=== PATIENT | female | born 1975 | race Caucasian/White ===

== ENCOUNTER 2019-07-26 01:24 | Emergency (ER) | payer OTHER ==
[~2019-07-26] VITALS: Ht 170.2 cm; Wt 77.1 kg
[2019-07-26] MEDS ORDERED: Fluoxetine HCl20 M1 PO (01:33)
[2019-07-26] MEDS ORDERED: Zantac150 MG PO (01:33)
[2019-07-26 02:11] LABS: BASOPHILS ABSOLUTE AUTO 0.11 K/mm3 (0.00-0.23); BASOPHILS PERCENT AUTO 1 % (0-2); EOSINOPHILS ABSOLUTE AUTO 0.24 K/mm3 (0.00-0.68); EOSINOPHILS PERCENT AUTO 2 % (0-6); Hematocrit 45.2 % (33.0-51.0); Hemoglobin 16.4 g/dL (11.5-16.0); IMMATURE GRAN ABSOLUTE AUTO 0.15 K/mm3 (0.00-0.10); IMMATURE GRAN PERCENT AUTO 1 % (0-1); LYMPHOCYTES PERCENT AUTO 17 % (21-46); MONOCYTES ABSOLUTE AUTO 1.34 K/mm3 (0.16-1.47); MONOCYTES PERCENT AUTO 9 % (4-13); Mean Corpuscular HGB Conc 36.3 g/dL (31.5-36.5); Mean Corpuscular Volume 110 fL (80-100); NEUTROPHILS PERCENT AUTO 71 % (41-73); NRBC ABSOLUTE 0.02 K/mm3 (0.00-0.02); NRBC Auto 0.1 /100 WBC (0.0-0.2); Platelet Count 387 K/mm3 (150-400); RDW Coefficient Variation 13.6 % (11.7-14.2); RDW Standard Deviation 55.8 fL (35.1-46.3); White Blood Cell Count 15.14 K/mm3 (4.00-11.30)
[2019-07-26 02:27] LABS: Alanine Aminotransfer (ALT/SGP 76 U/L (12-78); Albumin/Globulin Ratio 0.9 (0.8-1.8); Alk Phos 113 U/L (50-136); Anion Gap 14 mmol/L (6-16); Aspartate Aminotrans (AST/SGOT 73 U/L (12-37); Bilirubin, Total 0.5 mg/dL (0.1-1.0); Blood Urea Nitrogen 6 mg/dL (8-24); Bun/Creatinine Ratio 8.3 (12.0-20.0); CO2, Blood 26 mmol/L (21-32); Calcium, Blood 9.8 mg/dL (8.5-10.1); Chloride, Blood 96 mmol/L (98-108); Creatinine, Blood 0.72 mg/dL (0.40-1.00); Globulin, Blood 4.7 g/dL (2.2-4.0); Glomerular Filtration Rate >60 (60-); Glucose, Blood 116 mg/dL (70-99); Magnesium, Blood 1.7 mg/dL (1.6-2.4); Potassium, Blood 2.7 mmol/L (3.5-5.5); Sodium, Blood 136 mmol/L (136-145); Total Protein, Blood 8.7 g/dL (6.4-8.2); Troponin I <0.015 ng/mL (0.000-0.040)
[2019-07-26 04:14] LABS: Source, Urine Clean Catch
[2019-07-26 04:23] LABS: Appearance, Urine Clear (Clear); Bilirubin, Urine Neg (Neg); Blood, Urine Neg (Neg); Color, Urine Yellow (P-Yellow); Glucose Qualitative, Urine Neg (Neg); Ketones, Urine 1+ (Neg); Leukocyte Esterase, Urine Neg (Neg); Nitrite, Urine Neg (Neg); Protein, Urine 1+ (Neg); Urobilinogen, Urine 1+ (Normal)
[2019-07-26] MEDS ORDERED: K-Dur20 MEQ PO (04:41)
== END 2019-07-26 04:56 | disposition home or self-care (01) ==
LOC: ER 01:24
PROVIDERS: Emergency Medicine
DX: E87.5 Hyperkalemia (principal); E83.42 Hypomagnesemia; E86.0 Dehydration; F10.129 Alcohol abuse with intoxication, unspecified; Y90.6 Blood alcohol level of 120-199 mg/100 ml; F17.210 Nicotine dependence, cigarettes, uncomplicated; Z79.899 Other long term (current) drug therapy
CPT/HCPCS: 36415; 71046; 80053; 83735; 84145; 84484; 84703; 85025; 93005; 93010; 96361; 96365; 96367; 96375; 99284-25; A9270-GY; G0480; J0780; J1200; J1885; J3475; J3480; J7030

== ENCOUNTER 2020-04-19 12:55 | Emergency (ER) | payer OTHER ==
[~2020-04-19] VITALS: Ht 170.2 cm; Wt 77.1 kg
[~2020-04-19 12:55] MED LIST: Fluoxetine HCl20 M1 PO; K-Dur20 MEQ PO; Zantac150 MG PO
[2020-04-19 13:31] LABS: BASOPHILS PERCENT AUTO 1 % (0-2); EOSINOPHILS PERCENT AUTO 1 % (0-6); Hematocrit 46.9 % (33.0-51.0); Hemoglobin 16.1 g/dL (11.5-16.0); IMMATURE GRAN ABSOLUTE AUTO 0.11 K/mm3 (0.00-0.10); IMMATURE GRAN PERCENT AUTO 1 % (0-1); LYMPHOCYTES ABSOLUTE AUTO 2.25 K/mm3 (0.84-5.20); LYMPHOCYTES PERCENT AUTO 15 % (21-46); MONOCYTES ABSOLUTE AUTO 1.18 K/mm3 (0.16-1.47); MONOCYTES PERCENT AUTO 8 % (4-13); Mean Corpuscular HGB 36.7 pg (26.0-34.0); Mean Corpuscular HGB Conc 34.3 g/dL (31.5-36.5); Mean Corpuscular Volume 107 fL (80-100); Mean Platelet Volume 10.2 fL (9.1-12.4); NEUTROPHILS ABSOLUTE AUTO 11.33 K/mm3 (1.96-9.15); NEUTROPHILS PERCENT AUTO 75 % (41-73); Platelet Count 361 K/mm3 (150-400); RDW Standard Deviation 54.9 fL (35.1-46.3); Red Blood Cell Count 4.39 M/mm3 (3.80-5.20); White Blood Cell Count 15.17 K/mm3 (4.00-11.30)
[2020-04-19 13:54] LABS: Alanine Aminotransfer (ALT/SGP 65 U/L (12-78); Albumin, Blood 3.5 g/dL (3.4-5.0); Albumin/Globulin Ratio 0.7 (0.8-1.8); Alk Phos 153 U/L (50-136); Anion Gap 9 mmol/L (6-16); Aspartate Aminotrans (AST/SGOT 130 U/L (12-37); Bilirubin, Total 1.2 mg/dL (0.1-1.0); Blood Urea Nitrogen 6 mg/dL (8-24); Bun/Creatinine Ratio 9.2 (12.0-20.0); CO2, Blood 24 mmol/L (21-32); Calcium, Blood 8.7 mg/dL (8.5-10.1); Chloride, Blood 102 mmol/L (98-108); Creatinine, Blood 0.66 mg/dL (0.40-1.00); Globulin, Blood 5.3 g/dL (2.2-4.0); Glomerular Filtration Rate >60 (60-); Glucose, Blood 162 mg/dL (70-99); Potassium, Blood 3.2 mmol/L (3.5-5.5); Sodium, Blood 135 mmol/L (136-145); Total Protein, Blood 8.8 g/dL (6.4-8.2)
[2020-04-19 15:40] LABS: Source, Urine Clean Catch
[2020-04-19 15:48] LABS: Blood, Urine 1+ (Neg); Glucose Qualitative, Urine 1+ (Neg); Ketones, Urine 2+ (Neg); Leukocyte Esterase, Urine 1+ (Neg); Nitrite, Urine Neg (Neg); Protein, Urine 3+ (Neg); Specific Gravity, Urine 1.025 (1.003-1.022); Urobilinogen, Urine 2+ (Normal)
[2020-04-19 15:49] LABS: Appearance, Urine Turbid (Clear); Bilirubin, Urine 2+ (Neg); Color, Urine Orange (P-Yellow)
[2020-04-19 15:50] LABS: Amorphous Heavy (0-Heavy); Bacteria Mod /hpf; Squamous Epithelial Cells Few /hpf (Few)
[2020-04-19 16:27] LABS: Magnesium, Blood 1.2 mg/dL (1.6-2.4); Troponin I <0.015 ng/mL (0.000-0.040)
[2020-04-19] MEDS ORDERED: ONDA4ODT MM (17:17)
[2020-04-19] MEDS ORDERED: Percocet 5-3251 EACH PO (17:17)
== END 2020-04-19 18:11 | disposition home or self-care (01) ==
LOC: ER 12:55
PROVIDERS: Physician Assistant
DX: K85.90 Acute pancreatitis without necrosis or infection, unspecified (principal); F41.9 Anxiety disorder, unspecified; Z79.899 Other long term (current) drug therapy; F17.210 Nicotine dependence, cigarettes, uncomplicated
CPT/HCPCS: 36415; 74177; 76705; 80053; 81001; 81025; 83690; 83735; 84484; 85025; 87077; 87086; 87186; 96361-59; 96374-59; 96375-59; 99284-25; J1170; J1885; J2405; J7030; Q9967

== ENCOUNTER 2020-10-12 22:51 | Emergency (ER) | payer OTHER ==
[~2020-10-12] VITALS: Ht 165.1 cm; Wt 72.6 kg
[~2020-10-12 22:51] MED LIST changes: +ONDA4ODT MM; +Percocet 5-3251 EACH PO
== END 2020-10-13 01:51 | disposition home or self-care (01) ==
LOC: ER 22:51
DX: S81.811A Laceration without foreign body, right lower leg, initial encounter (principal); F17.210 Nicotine dependence, cigarettes, uncomplicated; Z79.899 Other long term (current) drug therapy; Z23 Encounter for immunization; W26.0XXA Contact with knife, initial encounter
CPT/HCPCS: 12035; 73590; 90471; 90714; 99284-25; A9270-GY

== ENCOUNTER 2020-10-20 13:54 | Emergency (ER) | payer OTHER ==
[~2020-10-20] VITALS: Ht 170.2 cm; Wt 77.1 kg
[2020-10-20 15:08] LABS: BASOPHILS ABSOLUTE AUTO 0.08 K/mm3 (0.00-0.23); BASOPHILS PERCENT AUTO 1 % (0-2); EOSINOPHILS ABSOLUTE AUTO 0.51 K/mm3 (0.00-0.68); EOSINOPHILS PERCENT AUTO 4 % (0-6); Hematocrit 39.4 % (33.0-51.0); Hemoglobin 13.2 g/dL (11.5-16.0); IMMATURE GRAN PERCENT AUTO 1 % (0-1); LYMPHOCYTES ABSOLUTE AUTO 1.17 K/mm3 (0.84-5.20); LYMPHOCYTES PERCENT AUTO 10 % (21-46); MONOCYTES ABSOLUTE AUTO 1.12 K/mm3 (0.16-1.47); MONOCYTES PERCENT AUTO 9 % (4-13); Mean Corpuscular HGB 38.5 pg (26.0-34.0); Mean Corpuscular HGB Conc 33.5 g/dL (31.5-36.5); Mean Corpuscular Volume 115 fL (80-100); NEUTROPHILS ABSOLUTE AUTO 8.89 K/mm3 (1.96-9.15); NEUTROPHILS PERCENT AUTO 75 % (41-73); Platelet Count 465 K/mm3 (150-400); RDW Coefficient Variation 14.2 % (11.7-14.2); RDW Standard Deviation 60.5 fL (35.1-46.3); Red Blood Cell Count 3.43 M/mm3 (3.80-5.20); White Blood Cell Count 11.87 K/mm3 (4.00-11.30)
[2020-10-20 15:27] LABS: Alanine Aminotransfer (ALT/SGP 45 U/L (12-78); Albumin, Blood 2.9 g/dL (3.4-5.0); Albumin/Globulin Ratio 0.6 (0.8-1.8); Alk Phos 151 U/L (50-136); Anion Gap 7 mmol/L (6-16); Aspartate Aminotrans (AST/SGOT 78 U/L (12-37); Bilirubin, Total 0.5 mg/dL (0.1-1.0); Blood Urea Nitrogen 8 mg/dL (8-24); Bun/Creatinine Ratio 14.2 (12.0-20.0); CO2, Blood 26 mmol/L (21-32); Calcium, Blood 8.6 mg/dL (8.5-10.1); Chloride, Blood 102 mmol/L (98-108); Creatinine, Blood 0.56 mg/dL (0.40-1.00); Globulin, Blood 4.6 g/dL (2.2-4.0); Glomerular Filtration Rate >60 (60-); Glucose, Blood 110 mg/dL (70-99); Potassium, Blood 3.1 mmol/L (3.5-5.5); Sodium, Blood 135 mmol/L (136-145); Total Protein, Blood 7.5 g/dL (6.4-8.2)
[2020-10-20] MEDS ORDERED: Bactrim Ds Tab1 EACH PO (17:13)
[2020-10-20] MEDS ORDERED: CEPH500 PO (17:13)
[2020-10-20] MEDS ORDERED: Roxicodone5 MG PO (17:13)
== END 2020-10-20 18:50 | disposition home or self-care (01) ==
LOC: ER 13:54
PROVIDERS: Physician Assistant
DX: L03.115 Cellulitis of right lower limb (principal); S81.811D Laceration without foreign body, right lower leg, subsequent encounter; F41.9 Anxiety disorder, unspecified; F17.200 Nicotine dependence, unspecified, uncomplicated; Z79.899 Other long term (current) drug therapy; W45.8XXD Other foreign body or object entering through skin, subsequent encounter
CPT/HCPCS: 36415; 73701; 80053; 83605; 85025; 96365-59; 96375-59; 99283-25; A9270-GY; J0690; J3010; Q9967

== ENCOUNTER 2020-10-27 11:35 | Day surgery (SDC) | payer OTHER ==
[~2020-10-27 11:35] MED LIST changes: +Bactrim Ds Tab1 EACH PO; +CEPH500 PO; +Roxicodone5 MG PO
== END 2020-10-27 16:00 | disposition home or self-care (01) ==
LOC: ATC 11:35
DX: L03.115 Cellulitis of right lower limb (principal); F17.200 Nicotine dependence, unspecified, uncomplicated
CPT/HCPCS: 96365; J0696

== ENCOUNTER 2020-10-28 00:19 | Day surgery (SDC) | payer OTHER | END 2020-10-28 10:12 | disposition home or self-care (01) | LOC: ATC 00:19 | DX: L03.115 Cellulitis of right lower limb (principal); F41.9 Anxiety disorder, unspecified; F17.200 Nicotine dependence, unspecified, uncomplicated; Z79.2 Long term (current) use of antibiotics; Z79.899 Other long term (current) drug therapy | CPT/HCPCS: 96365; J0696 ==

== ENCOUNTER 2020-10-30 00:35 | Day surgery (SDC) | payer OTHER | END 2020-10-30 09:40 | disposition home or self-care (01) | LOC: ATC 00:35 | DX: L03.115 Cellulitis of right lower limb (principal); F17.200 Nicotine dependence, unspecified, uncomplicated | CPT/HCPCS: J0696 ==

== ENCOUNTER 2020-10-30 00:36 | Day surgery (SDC) | payer OTHER | END 2020-10-30 23:35 | disposition home or self-care (01) | LOC: WOUND 00:36 | DX: S81.801A Unspecified open wound, right lower leg, initial encounter (principal); I96 Gangrene, not elsewhere classified; F17.200 Nicotine dependence, unspecified, uncomplicated; K21.9 Gastro-esophageal reflux disease without esophagitis; F41.8 Other specified anxiety disorders; Z79.899 Other long term (current) drug therapy; W22.8XXA Striking against or struck by other objects, initial encounter | CPT/HCPCS: G0463 ==

== ENCOUNTER 2020-10-31 00:48 | Day surgery (SDC) | payer OTHER ==
--- NOTE | 2020-10-31 09:44 | NUR ---
PER PT IV TO LEFT FOREARM PLACED 10/30/20. WNL TODAY. INFUSING WITHOUT DIFFICULTY
== END 2020-10-31 09:55 | disposition home or self-care (01) ==
LOC: ATC 00:48
DX: L03.115 Cellulitis of right lower limb (principal); F17.200 Nicotine dependence, unspecified, uncomplicated
CPT/HCPCS: J0696

== ENCOUNTER 2020-11-01 00:21 | Day surgery (SDC) | payer OTHER ==
--- NOTE | 2020-11-01 09:46 | NUR ---
IV SITE LEFT FORARM, 22G.
--- NOTE | 2020-11-01 10:09 | NUR ---
IV SITE TO LEFT FORARM WRAPPED WITH 2X2'S AND WRAPPED WITH COBAN. WILL RETURN TOMORROW FOR INFUSION.
== END 2020-11-01 10:07 | disposition home or self-care (01) ==
LOC: ATC 00:21
DX: L03.115 Cellulitis of right lower limb (principal); F17.200 Nicotine dependence, unspecified, uncomplicated
CPT/HCPCS: J0696

== ENCOUNTER 2020-11-02 00:02 | Day surgery (SDC) | payer OTHER | END 2020-11-02 23:44 | disposition home or self-care (01) | LOC: ATC 00:02 | DX: L03.115 Cellulitis of right lower limb (principal); F17.200 Nicotine dependence, unspecified, uncomplicated; Z79.2 Long term (current) use of antibiotics; Z79.899 Other long term (current) drug therapy | CPT/HCPCS: J0696 ==

== ENCOUNTER 2020-11-03 00:07 | Day surgery (SDC) | payer OTHER | END 2020-11-03 09:48 | disposition home or self-care (01) | LOC: ATC 00:07 | DX: L03.115 Cellulitis of right lower limb (principal); F41.9 Anxiety disorder, unspecified; F17.200 Nicotine dependence, unspecified, uncomplicated; Z79.2 Long term (current) use of antibiotics; Z79.899 Other long term (current) drug therapy | CPT/HCPCS: 96365; J0696 ==

== ENCOUNTER 2020-11-04 05:40 | Day surgery (SDC) | payer OTHER | END 2020-11-04 09:30 | disposition home or self-care (01) | LOC: ATC 05:40 | DX: L03.115 Cellulitis of right lower limb (principal); F41.9 Anxiety disorder, unspecified; F17.200 Nicotine dependence, unspecified, uncomplicated; Z79.2 Long term (current) use of antibiotics; Z79.899 Other long term (current) drug therapy | CPT/HCPCS: 96365; J0696 ==

== ENCOUNTER 2020-11-04 06:43 | Day surgery (SDC) | payer OTHER | END 2020-11-04 22:48 | disposition home or self-care (01) | LOC: WOUND 06:43 | DX: S81.801A Unspecified open wound, right lower leg, initial encounter (principal); I96 Gangrene, not elsewhere classified; F41.9 Anxiety disorder, unspecified; Z79.2 Long term (current) use of antibiotics; Z79.899 Other long term (current) drug therapy; W22.8XXA Striking against or struck by other objects, initial encounter ==

== ENCOUNTER 2020-11-05 00:05 | Day surgery (SDC) | payer OTHER | END 2020-11-05 09:40 | disposition home or self-care (01) | LOC: ATC 00:05 | DX: L03.115 Cellulitis of right lower limb (principal); F17.200 Nicotine dependence, unspecified, uncomplicated | CPT/HCPCS: 96365; J0696 ==

== ENCOUNTER 2020-11-06 09:23 | Day surgery (SDC) | payer OTHER | END 2020-11-06 10:00 | disposition home or self-care (01) | LOC: ATC 09:23 | DX: L03.115 Cellulitis of right lower limb (principal); F17.200 Nicotine dependence, unspecified, uncomplicated | CPT/HCPCS: J0696 ==

== ENCOUNTER 2020-11-07 00:29 | Day surgery (SDC) | payer OTHER | END 2020-11-07 22:50 | LOC: ATC 00:29 | DX: L03.115 Cellulitis of right lower limb (principal); F17.200 Nicotine dependence, unspecified, uncomplicated | CPT/HCPCS: J0696 ==

== ENCOUNTER 2020-11-08 01:24 | Day surgery (SDC) | payer OTHER | END 2020-11-08 22:50 | disposition home or self-care (01) | LOC: ATC 01:24 | DX: L03.115 Cellulitis of right lower limb (principal); F17.200 Nicotine dependence, unspecified, uncomplicated; F41.9 Anxiety disorder, unspecified; Z79.2 Long term (current) use of antibiotics; Z79.899 Other long term (current) drug therapy | CPT/HCPCS: J0696 ==

== ENCOUNTER 2020-11-11 01:16 | Day surgery (SDC) | payer OTHER | END 2020-11-11 23:02 | disposition home or self-care (01) | LOC: WOUND 01:16 | DX: S81.801A Unspecified open wound, right lower leg, initial encounter (principal); I96 Gangrene, not elsewhere classified; F41.8 Other specified anxiety disorders; Z79.899 Other long term (current) drug therapy; W22.8XXA Striking against or struck by other objects, initial encounter ==

== ENCOUNTER 2020-11-18 00:27 | Day surgery (SDC) | payer OTHER | END 2020-11-18 22:40 | disposition home or self-care (01) | LOC: WOUND 00:27 | DX: T81.33XD Disruption of traumatic injury wound repair, subsequent encounter (principal); Y83.8 Other surgical procedures as the cause of abnormal reaction of the patient, or of later complication, without mention of misadventure at the time of the procedure; F17.200 Nicotine dependence, unspecified, uncomplicated ==

== ENCOUNTER 2020-11-25 00:21 | Day surgery (SDC) | payer OTHER ==
[~2020-11-25 00:21] MED LIST changes: -Fluoxetine HCl20 M1 PO
== END 2020-11-25 22:47 | disposition home or self-care (01) ==
LOC: WOUND 00:21
DX: T81.33XD Disruption of traumatic injury wound repair, subsequent encounter (principal); Y83.8 Other surgical procedures as the cause of abnormal reaction of the patient, or of later complication, without mention of misadventure at the time of the procedure; Z87.891 Personal history of nicotine dependence
CPT/HCPCS: A9270

== ENCOUNTER 2020-12-23 06:35 | Observation (INO) | payer OTHER ==
[~2020-12-23] VITALS: Ht 170.2 cm; Wt 75.4 kg
[2020-12-23 07:03] LABS: BASOPHILS ABSOLUTE AUTO 0.05 K/mm3 (0.00-0.23); BASOPHILS PERCENT AUTO 1 % (0-2); EOSINOPHILS ABSOLUTE AUTO 0.13 K/mm3 (0.00-0.68); EOSINOPHILS PERCENT AUTO 2 % (0-6); Hematocrit 33.5 % (33.0-51.0); Hemoglobin 11.7 g/dL (11.5-16.0); IMMATURE GRAN ABSOLUTE AUTO 0.05 K/mm3 (0.00-0.10); IMMATURE GRAN PERCENT AUTO 1 % (0-1); LYMPHOCYTES ABSOLUTE AUTO 1.43 K/mm3 (0.84-5.20); LYMPHOCYTES PERCENT AUTO 19 % (21-46); MONOCYTES ABSOLUTE AUTO 0.65 K/mm3 (0.16-1.47); MONOCYTES PERCENT AUTO 9 % (4-13); Mean Corpuscular HGB Conc 34.9 g/dL (31.5-36.5); Mean Corpuscular Volume 112 fL (80-100); Mean Platelet Volume 10.6 fL (9.1-12.4); NEUTROPHILS PERCENT AUTO 69 % (41-73); Platelet Count 259 K/mm3 (150-400); RDW Coefficient Variation 16.1 % (11.7-14.2); RDW Standard Deviation 65.9 fL (35.1-46.3); White Blood Cell Count 7.51 K/mm3 (4.00-11.30)
[2020-12-23 07:18] LABS: CPK Creatine Kinase 50 U/L (26-193); Ethanol (Alcohol), Blood, Med <3 mg/dL
[2020-12-23 07:22] LABS: Alanine Aminotransfer (ALT/SGP 51 U/L (12-78); Albumin, Blood 3.1 g/dL (3.4-5.0); Albumin/Globulin Ratio 0.8 (0.8-1.8); Alk Phos 101 U/L (50-136); Anion Gap 9 mmol/L (6-16); Aspartate Aminotrans (AST/SGOT 96 U/L (12-37); Bilirubin, Total 0.8 mg/dL (0.1-1.0); Blood Urea Nitrogen 6 mg/dL (8-24); CO2, Blood 27 mmol/L (21-32); Calcium, Blood 8.7 mg/dL (8.5-10.1); Chloride, Blood 103 mmol/L (98-108); Glomerular Filtration Rate >60 (60-); Glucose, Blood 113 mg/dL (70-99); Potassium, Blood 2.3 mmol/L (3.5-5.5); Sodium, Blood 139 mmol/L (136-145); Total Protein, Blood 7.1 g/dL (6.4-8.2)
[2020-12-23 09:09] LABS: Source, Urine Clean Catch
[2020-12-23 09:16] LABS: Bilirubin, Urine Neg (Neg); Blood, Urine 1+ (Neg); Glucose Qualitative, Urine Neg (Neg); Ketones, Urine 2+ (Neg); Leukocyte Esterase, Urine 1+ (Neg); Nitrite, Urine Neg (Neg); Protein, Urine 3+ (Neg); Urobilinogen, Urine 1+ (Normal)
[2020-12-23 09:27] LABS: U Amphetamine Screen Not Detected; U Barbituate Screen Not Detected; U Benzodiazapine Screen DETECTED; U Buprenorphine Screen Not Detected; U Cannabinoids Screen Not Detected; U Cocaine Screen Not Detected; U Methadone Screen Not Detected; U Methamphetamine Screen Not Detected; U Opiates Screen Not Detected; U Oxycodone Screen Not Detected; U Phencyclidine Screen Not Detected; U Propoxyphene Screen Not Detected
[2020-12-23 09:45] LABS: Appearance, Urine Hazy (Clear); Color, Urine Yellow (P-Yellow)
[2020-12-23 09:54] LABS: Bacteria Few /hpf; Mucus Light (0-Heavy); Squamous Epithelial Cells Few /hpf (Few)
[2020-12-23] MEDS ORDERED: Fluoxetine HCl20 M1 PO (12:34)
[2020-12-23] MEDS ORDERED: OMEP20ER PO (12:53)
[2020-12-23] MEDS ORDERED: TRAZ100 PO (13:31)
--- NOTE | 2020-12-23 15:41 | NUR ---
PT ARRIVED IN THE UNIT VIA STRETCHER FROM [facility], PT WAS ABLE TO AMBULATE 1PA TO TRANSFER FROM STRETCHER TO HOSP BED. PT IS HERE FOR ACUTE HYPOKALEMIA REPORT RECEIVED FROM JARVIS ESCALANTE. ALERT AND ORIENTED X3, COOPERATIVE AND PLEASANT. PT DOESN'T FULL REMEMBER WHAT HAPPENED AFTER SHE FELL AT HOME, BUT REMEMBER THAT SHE HIT RIGHT SIDE OF HER HEAD, HEAD CT SHOWS NO SIGNIFICANT ABNORMALITY. PT DENIES ANY TYPE OF PAIN, PT REPORTS BEING WEAK WITH NAUSEA, VOMITING AND POOR APPETITE 9 DAYS AFTER SHE DECIDED TO QUIT DRINKING ALCOHOL, PT USED TO DRINK 6-10 SHOTS OF WHISKEY AND 2 BOTTLES OF BEERS A DAY. PT ALSO REPORTED SHE STOPPED TAKING HER PROZAC BECAUSE SHE WAS THROWING UP OFTEN. NO TREMORS NOTED, SEIZURE PADS APPLIED ON THE SIDE RAILS, BED IN LOWEST POSITION, ON SEIZURE PRECAUTIONS, PT CURRENTLY RUNNING ON 4TH BAG OF IV POTASSIUM FROM THE ER AND NS AT 75MLS/HR. VITALS HRR SR 70'S, BP SYSTOLIC 104, SATS ABOVE 95% ON RA, AFEBRILE. PT NOW RESTING IN BED, NO OTHER COMPLAINS AT THIS TIME, WILL MONITOR UNTIL THE END OF SHIFT.
--- NOTE | 2020-12-23 19:38 | NUR ---
PT REFUSED TO RELEASE ANY INFORMATION TO ANY FAMILY MEMBER EXCEPT GIRMA BARBA DUE TO FAMILY ISSUES, PT STATED SHE CAN CONTACT HER PARENTS IF SHE WANTS TO, NO HOSPITAL STAFF TO TALK TO PT'S PARENTS ABOUT HER CONDITION DURING HOSPITAL STAY PER PT'S REQUESTS.
[2020-12-24 04:24] LABS: Alanine Aminotransfer (ALT/SGP 45 U/L (12-78); Albumin, Blood 2.4 g/dL (3.4-5.0); Albumin/Globulin Ratio 0.7 (0.8-1.8); Alk Phos 87 U/L (50-136); Anion Gap 6 mmol/L (6-16); Aspartate Aminotrans (AST/SGOT 64 U/L (12-37); Bilirubin, Total 0.9 mg/dL (0.1-1.0); Blood Urea Nitrogen 5 mg/dL (8-24); CO2, Blood 27 mmol/L (21-32); Calcium, Blood 8.2 mg/dL (8.5-10.1); Chloride, Blood 110 mmol/L (98-108); Creatinine, Blood 0.63 mg/dL (0.40-1.00); Globulin, Blood 3.6 g/dL (2.2-4.0); Glomerular Filtration Rate >60 (60-); Glucose, Blood 86 mg/dL (70-99); Magnesium, Blood 1.8 mg/dL (1.6-2.4); Sodium, Blood 143 mmol/L (136-145)
--- NOTE | 2020-12-24 05:54 | NUR ---
LOW POTASSIUM LEVEL DR ZULUAGA NOTIFIED OF PATIENT'S LOW POTASSIUM LEVEL THIS MORNING. ORDER RECIEVED.
--- NOTE | 2020-12-24 06:34 | NUR ---
SHIFT SUMMARY PATIENT VERY PLEASENT AND COOPERATIVE THROUGHOUT THE NIGHT. PATIENT APPEARED TO BE AWAKE MOST OF THE NIGHT, NAPPING OCCATIONALLY. IV FLUIDS RUNNING PER ORDERS. VITAL SIGNS CHARTED. PATIENT STATED SHE HAD SOME SLIGHT NAUSEA THIS MORNING BUT DENIED THE NEED FOR ANY NAUSEA MEDICATION. KCL RUNNING PER ORDERS. PATIENT CURRENTLY RESTING IN BED WATCHING TV. WILL CONTINUE CURRENT PLAN OF CARE.
[2020-12-24] MEDS ORDERED: MULVITA PO (12:15)
[2020-12-24] MEDS ORDERED: B-1100 M1 PO (12:16)
[2020-12-24 13:59] LABS: Anion Gap 5 mmol/L (6-16); Blood Urea Nitrogen 5 mg/dL (8-24); Bun/Creatinine Ratio 8.3 (12.0-20.0); CO2, Blood 26 mmol/L (21-32); Calcium, Blood 8.2 mg/dL (8.5-10.1); Chloride, Blood 114 mmol/L (98-108); Glomerular Filtration Rate >60 (60-); Glucose, Blood 85 mg/dL (70-99); Potassium, Blood 3.8 mmol/L (3.5-5.5); Sodium, Blood 145 mmol/L (136-145)
--- NOTE | 2020-12-24 14:17 | NUR ---
Patient is lying in bed and alert. Patient tells me about the events that led to her hospitalization, about her struggle with alcohol and about her family unit complications. She explains about the stress she is under and the degree of worry she has about her dad who is battling cancer. I normalize her experience, encourage self-care, explore sources of meaning and value and provide therapeutic listening, pastoral senior counsel commercial, inspirational reading material and prayer. Patient responds well and states that she feels encouraged from the spiritual care visit and that she feels less overwhelmed. I will continue to remain available to patient and family.
[2020-12-24] MEDS ORDERED: POTCHL20ER PO (15:15)
--- NOTE | 2020-12-24 16:01 | NUR ---
NO ACUTE EVENTS THIS SHIFT, VSS. PATIENT ALERT AND ORIENTED, ABLE TO AMBULATE IN ROOM WITH SBA FOR LINE MANAGEMENT. DISCHARGE INFO PROVIDED REGARDING FOLLOW UP PLANS FOR LAB DRAW TO CHECK K+ LEVEL ON MONDAY, TO FOLLOW UP WITH PRIMARY CARE PROVIDER AT NEXT AVAILABLE APPOINTMENT, AND MEDICATION INFORMATION. THIS RN COMMUNICATED IMPORTANCE OF PICKING UP AND CONTINUING TO TAKE PO POTASSIUM PRESCRIPTION AND TO RECHECK POTASSIUM LEVELS WITH LAB DRAW ON MONDAY. PATIENT VERBALIZED UNDERSTANDING, NO SIGNS OF ACUTE DISTRESS AT THIS TIME.
== END 2020-12-24 16:08 | disposition home or self-care (01) ==
LOC: ER 06:35 → ERHOLD 06:36 → PCU 06:36
PROVIDERS: Emergency Medicine; Family Medicine; Nurse Practitioner Acute Care; ADMIT Internal Medicine
DX: E87.6 Hypokalemia (principal); K21.9 Gastro-esophageal reflux disease without esophagitis; R56.9 Unspecified convulsions; E78.5 Hyperlipidemia, unspecified; F10.20 Alcohol dependence, uncomplicated; R94.31 Abnormal electrocardiogram [ECG] [EKG]; T43.225A Adverse effect of selective serotonin reuptake inhibitors, initial encounter; T43.215A Adverse effect of selective serotonin and norepinephrine reuptake inhibitors, initial encounter; F32.9 Major depressive disorder, single episode, unspecified; F41.9 Anxiety disorder, unspecified
CPT/HCPCS: 36415; 70450; 80048; 80053; 81001; 82550; 82947; 83735; 84132; 84443; 85025; 87086; 93005; 93010; 96365; 96366; 96368; 96376; 97116; 97162; 99285-25; A9270; G0008; G0378; G0480; J1650; J3475; J3480; J7030; Q2038

== ENCOUNTER 2022-01-30 15:17 | Observation (INO) | payer OTHER ==
[~2022-01-30] VITALS: Ht 170.2 cm; Wt 72.8 kg
[~2022-01-30 15:17] MED LIST changes: +B-1100 M1 PO; +Fluoxetine HCl20 M1 PO; +MULVITA PO; +OMEP20ER PO; +POTCHL20ER PO; +TRAZ100 PO
[2022-01-30 15:49] LABS: BASOPHILS ABSOLUTE AUTO 0.07 K/mm3 (0.00-0.23); BASOPHILS PERCENT AUTO 1 % (0-2); EOSINOPHILS ABSOLUTE AUTO 0.08 K/mm3 (0.00-0.68); EOSINOPHILS PERCENT AUTO 1 % (0-6); Hematocrit 42.3 % (33.0-51.0); Hemoglobin 14.3 g/dL (11.5-16.0); IMMATURE GRAN PERCENT AUTO 1 % (0-1); LYMPHOCYTES ABSOLUTE AUTO 1.35 K/mm3 (0.84-5.20); LYMPHOCYTES PERCENT AUTO 15 % (21-46); MONOCYTES ABSOLUTE AUTO 0.79 K/mm3 (0.16-1.47); MONOCYTES PERCENT AUTO 9 % (4-13); Mean Corpuscular HGB 37.5 pg (26.0-34.0); Mean Corpuscular HGB Conc 33.8 g/dL (31.5-36.5); Mean Corpuscular Volume 111 fL (80-100); Mean Platelet Volume 11.6 fL (9.1-12.4); NEUTROPHILS ABSOLUTE AUTO 6.53 K/mm3 (1.96-9.15); NEUTROPHILS PERCENT AUTO 73 % (41-73); Platelet Count 249 K/mm3 (150-400); RDW Standard Deviation 53.9 fL (35.1-46.3); Red Blood Cell Count 3.81 M/mm3 (3.80-5.20); White Blood Cell Count 8.92 K/mm3 (4.00-11.30)
[2022-01-30] MEDS ORDERED: Atarax10 MG PO (16:03)
[2022-01-30 16:15] LABS: Alanine Aminotransfer (ALT/SGP 90 U/L (12-78); Albumin, Blood 2.8 g/dL (3.4-5.0); Albumin/Globulin Ratio 0.5 (0.8-1.8); Alk Phos 186 U/L (50-136); Anion Gap 14 mmol/L (6-16); Aspartate Aminotrans (AST/SGOT 192 U/L (12-37); Bilirubin, Total 1.7 mg/dL (0.1-1.0); Blood Urea Nitrogen 5 mg/dL (8-24); Bun/Creatinine Ratio 6.3 (12.0-20.0); CO2, Blood 21 mmol/L (21-32); Calcium, Blood 8.7 mg/dL (8.5-10.1); Chloride, Blood 104 mmol/L (98-108); Creatinine, Blood 0.79 mg/dL (0.40-1.00); Globulin, Blood 5.3 g/dL (2.2-4.0); Glomerular Filtration Rate >60 (60-); Glucose, Blood 210 mg/dL (70-99); Potassium, Blood 2.3 mmol/L (3.5-5.5); Sodium, Blood 139 mmol/L (136-145); Total Protein, Blood 8.1 g/dL (6.4-8.2)
[2022-01-30] MEDS ORDERED: REXULTI2 MG PO (20:53)
[2022-01-31 02:52] LABS: Campylobacter Sp Not Detected (NOT DETECT); Enteroaggregative E. coli-EAEC Not Detected (NOT DETECT); Enteropathogenic E. coli-EPEC Not Detected (NOT DETECT); Enterotoxigenic E. coli-ETEC Not Detected (NOT DETECT); Plesiomonas Shigelloides Not Detected (NOT DETECT); Salmonella Sp Not Detected (NOT DETECT); Shiga Toxin-prod E. coli-STEC Not Detected (NOT DETECT); Vibrio Cholerae Not Detected (NOT DETECT); Vibrio Sp Not Detected (NOT DETECT); Yersinia Enterocolitica Not Detected (NOT DETECT)
[2022-01-31 02:53] LABS: Adenovirus F 40/41 Not Detected (NOT DETECT); Astrovirus Not Detected (NOT DETECT); Cryptosporidium Not Detected (NOT DETECT); Cyclospora Cayetanensis Not Detected (NOT DETECT); E. Coli O157 Not Detected (NOT DETECT); Entamoeba Histolytica Not Detected (NOT DETECT); Giardia Lamblia Not Detected (NOT DETECT); Norovirus GI/GII Not Detected (NOT DETECT); Rotavirus A Not Detected (NOT DETECT); Sapovirus Not Detected (NOT DETECT); Shigella/Enteroin E. coli-EIEC Not Detected (NOT DETECT)
[2022-01-31 04:54] LABS: Anion Gap 6 mmol/L (6-16); Blood Urea Nitrogen 4 mg/dL (8-24); Bun/Creatinine Ratio 6.1 (12.0-20.0); CO2, Blood 28 mmol/L (21-32); Calcium, Blood 8.1 mg/dL (8.5-10.1); Chloride, Blood 108 mmol/L (98-108); Creatinine, Blood 0.65 mg/dL (0.40-1.00); Glomerular Filtration Rate >60 (60-); Glucose, Blood 84 mg/dL (70-99); Magnesium, Blood 1.6 mg/dL (1.6-2.4); Potassium, Blood 3.3 mmol/L (3.5-5.5); Sodium, Blood 142 mmol/L (136-145)
--- NOTE | 2022-01-31 07:29 | NUR ---
PT NEW ADMIT THIS SHIFT FOR HYPOKALEMIA. PT VSS T/O NIGHT, HR SINUS 80-100 PER TELE MONITOR. PT DENIED CP/PRESSURE/SOB. PT REP ARM CRAMPING SOMEWHAT IMPROVED. PT HAD 2 LIQ BM, GI PANEL NEGATIVE. PT DRINKING LARGE AMT WATER, UO DECREASED, URINE CLOUDY AND CONCENTRATED, BLADDER SCAN READ 3ML.
[2022-01-31] MEDS ORDERED: DIPATR PO (13:06)
[2022-01-31] MEDS ORDERED: POTA20LUD PO (13:11)
--- NOTE | 2022-01-31 14:01 | NUR ---
DISCHARGE HYPOKALEMIA PT [id number], AMBULATING WELL IN ROOM TO RESTROOM, NO REPORTED WEAKNESS. PT DENIES CP OR PRESSURE. MEDICATIONS FAXED TO PHARMACY PRIOR TO DISCHARGE. ALL INSTRUCTIONS GONE OVER WITH PATIENT. DENIED FURTHER QUESTIONS. IV REMOVED AT THIS TIME. CURRENTLY WAITING FOR RIDE TO GET HERE.
== END 2022-01-31 14:34 | disposition home or self-care (01) ==
LOC: ER 15:17 → ERHOLD 15:18 → SURS 15:18
PROVIDERS: Physician Assistant; ADMIT Hospitalist
DX: E87.6 Hypokalemia (principal); E83.42 Hypomagnesemia; K52.9 Noninfective gastroenteritis and colitis, unspecified; R73.9 Hyperglycemia, unspecified; K21.9 Gastro-esophageal reflux disease without esophagitis; F17.210 Nicotine dependence, cigarettes, uncomplicated; R74.01 Elevation of levels of liver transaminase levels; F32.A Depression, unspecified; F41.9 Anxiety disorder, unspecified; G89.29 Other chronic pain; M54.9 Dorsalgia, unspecified; F10.21 Alcohol dependence, in remission; Z23 Encounter for immunization
CPT/HCPCS: 0097U; 36415; 80048; 80053; 83036; 83690; 83735; 85025; 90686; 93005; 93010; A9270; J2405; J3480; J7030; J7050

== ENCOUNTER → 2022-07-04 | Outpatient (CLI) | payer OTHER ==
[~2022-07-04] MED LIST changes: +Atarax10 MG PO; +DIPATR PO; +FOLI1 PO; +MAGCHL64ER; +POTA20LUD PO; +Prozac20 MG PO; +REXULTI2 MG PO; +TOPI100 PO
[2022-07-04 15:44] LABS: BASOPHILS PERCENT AUTO 1 % (0-2); EOSINOPHILS ABSOLUTE AUTO 0.09 K/mm3 (0.00-0.68); EOSINOPHILS PERCENT AUTO 1 % (0-6); Hematocrit 32.5 % (33.0-51.0); Hemoglobin 11.6 g/dL (11.5-16.0); IMMATURE GRAN ABSOLUTE AUTO 0.04 K/mm3 (0.00-0.10); IMMATURE GRAN PERCENT AUTO 0 % (0-1); LYMPHOCYTES ABSOLUTE AUTO 2.08 K/mm3 (0.84-5.20); LYMPHOCYTES PERCENT AUTO 18 % (21-46); MONOCYTES ABSOLUTE AUTO 1.02 K/mm3 (0.16-1.47); MONOCYTES PERCENT AUTO 9 % (4-13); Mean Corpuscular HGB 31.3 pg (26.0-34.0); Mean Corpuscular HGB Conc 35.7 g/dL (31.5-36.5); Mean Corpuscular Volume 88 fL (80-100); Mean Platelet Volume 10.7 fL (9.1-12.4); NEUTROPHILS ABSOLUTE AUTO 8.25 K/mm3 (1.96-9.15); NEUTROPHILS PERCENT AUTO 71 % (41-73); Platelet Count 182 K/mm3 (150-400); RDW Coefficient Variation 16.9 % (11.7-14.2); RDW Standard Deviation 51.4 fL (35.1-46.3); Red Blood Cell Count 3.71 M/mm3 (3.80-5.20); White Blood Cell Count 11.58 K/mm3 (4.00-11.30)
[2022-07-04 15:55] LABS: Albumin, Blood 1.6 g/dL (3.4-5.0); Albumin/Globulin Ratio 0.2 (0.8-1.8); Bilirubin, Total 2.9 mg/dL (0.1-1.0); Bun/Creatinine Ratio 1.9 (12.0-20.0); Calcium, Blood 8.1 mg/dL (8.5-10.1); Creatinine, Blood 1.05 mg/dL (0.40-1.00); Globulin, Blood 6.8 g/dL (2.2-4.0); Potassium, Blood 2.7 mmol/L (3.5-5.5); Total Protein, Blood 8.4 g/dL (6.4-8.2)
== END | disposition home or self-care (01) ==
LOC: LAB 15:40 → LAB SHORT 15:40
PROVIDERS: Physician Assistant
DX: R60.9 Edema, unspecified (principal)
CPT/HCPCS: 80053; 83880; 85025

== ENCOUNTER 2022-07-22 06:37 | Inpatient (IN) | payer OTHER ==
[~2022-07-22] VITALS: Ht 167.6 cm; Wt 78.0 kg
[2022-07-22 07:16] LABS: BASOPHILS ABSOLUTE AUTO 0.05 K/mm3 (0.00-0.23); BASOPHILS PERCENT AUTO 0 % (0-2); EOSINOPHILS ABSOLUTE AUTO 0.01 K/mm3 (0.00-0.68); EOSINOPHILS PERCENT AUTO 0 % (0-6); Hematocrit 27.7 % (33.0-51.0); Hemoglobin 10.1 g/dL (11.5-16.0); IMMATURE GRAN ABSOLUTE AUTO 0.19 K/mm3 (0.00-0.10); IMMATURE GRAN PERCENT AUTO 1 % (0-1); LYMPHOCYTES PERCENT AUTO 7 % (21-46); MONOCYTES ABSOLUTE AUTO 1.51 K/mm3 (0.16-1.47); MONOCYTES PERCENT AUTO 9 % (4-13); Mean Corpuscular HGB 31.6 pg (26.0-34.0); Mean Corpuscular HGB Conc 36.5 g/dL (31.5-36.5); Mean Corpuscular Volume 87 fL (80-100); Mean Platelet Volume 11.6 fL (9.1-12.4); NEUTROPHILS ABSOLUTE AUTO 13.71 K/mm3 (1.96-9.15); NEUTROPHILS PERCENT AUTO 82 % (41-73); Platelet Count 155 K/mm3 (150-400); RDW Coefficient Variation 20.4 % (11.7-14.2); RDW Standard Deviation 57.3 fL (35.1-46.3); White Blood Cell Count 16.67 K/mm3 (4.00-11.30)
[2022-07-22 08:21] LABS: Alanine Aminotransfer (ALT/SGP 40 U/L (12-78); Albumin, Blood 1.4 g/dL (3.4-5.0); Albumin/Globulin Ratio 0.2 (0.8-1.8); Alk Phos 273 U/L (50-136); Anion Gap 11 mmol/L (6-16); Aspartate Aminotrans (AST/SGOT 126 U/L (12-37); Bilirubin, Total 6.3 mg/dL (0.1-1.0); Blood Urea Nitrogen 11 mg/dL (8-24); Bun/Creatinine Ratio 5.6 (12.0-20.0); CO2, Blood 29 mmol/L (21-32); Calcium, Blood 7.9 mg/dL (8.5-10.1); Chloride, Blood 84 mmol/L (98-108); Creatinine, Blood 1.97 mg/dL (0.40-1.00); Ethanol (Alcohol), Blood, Med <3 mg/dL; Globulin, Blood 6.5 g/dL (2.2-4.0); Glomerular Filtration Rate 31 (60-); Glucose, Blood 97 mg/dL (70-99); Potassium, Blood 3.5 mmol/L (3.5-5.5); Sodium, Blood 124 mmol/L (136-145); Total Protein, Blood 7.9 g/dL (6.4-8.2)
[2022-07-22 08:22] LABS: Influenza A, PCR NEGATIVE (NEGATIVE); Influenza B, PCR NEGATIVE (NEGATIVE); Resp Syncytial Virus, PCR NEGATIVE (NEGATIVE); SARS-Cov-2 (COVID-19) PCR, MMC NEGATIVE (NEGATIVE)
[2022-07-22] MEDS ORDERED: Milk Thistle175 M1 PO (11:34)
[2022-07-22] MEDS ORDERED: B-100 COMPLEX100 MG PO (11:35)
[2022-07-22] MEDS ORDERED: THERA-D2000 UNIT PO (11:36)
[2022-07-22] MEDS ORDERED: ZINC15 PO (11:36)
[2022-07-22] MEDS ORDERED: NEURONTIN300 MG PO (11:37)
[2022-07-22] MEDS ORDERED: FUROSEMIDE40 MG PO (11:37)
[2022-07-22] MEDS ORDERED: MAGNESIUM OXID500 MG PO (11:39)
[2022-07-22] MEDS ORDERED: SPIRONOLACTONE50 MG PO (11:40)
[2022-07-22] MEDS ORDERED: LOMOTIL 2.5-0.1 EACH PO (11:40)
[2022-07-22] MEDS ORDERED: ONDA4SO (11:41)
[2022-07-22 14:17] LABS: Source, Urine Straight Cath
[2022-07-22 14:26] LABS: Blood, Urine Neg (Neg); Color, Urine Amber (P-Yellow); Glucose Qualitative, Urine Neg (Neg); Ketones, Urine 1+ (Neg); Leukocyte Esterase, Urine 1+ (Neg); Nitrite, Urine Neg (Neg); Protein, Urine 1+ (Neg); Specific Gravity, Urine 1.015 (1.003-1.022); Urobilinogen, Urine 2+ (Normal)
[2022-07-22 14:49] LABS: Appearance, Urine Hazy (Clear); Bilirubin, Urine 2+ (Neg)
[2022-07-22 15:07] LABS: Bacteria Few /hpf; Squamous Epithelial Cells Few /hpf (Few)
[2022-07-22 15:08] LABS: Amorphous Light (0-Heavy)
[2022-07-22 15:17] LABS: U Amphetamine Screen Not Detected; U Barbituate Screen Not Detected; U Benzodiazapine Screen Not Detected; U Buprenorphine Screen Not Detected; U Cannabinoids Screen DETECTED; U Cocaine Screen Not Detected; U Methadone Screen Not Detected; U Methamphetamine Screen Not Detected; U Opiates Screen Not Detected; U Oxycodone Screen DETECTED; U Phencyclidine Screen Not Detected; U Propoxyphene Screen Not Detected
[2022-07-22 15:19] LABS: Bun/Creatinine Ratio 6.2 (12.0-20.0); Calcium, Blood 7.9 mg/dL (8.5-10.1); Creatinine, Blood 1.92 mg/dL (0.40-1.00); Potassium, Blood 3.1 mmol/L (3.5-5.5)
--- NOTE | 2022-07-22 16:42 | NUR ---
TRANSFER UPDATE PT ARRIVED TO PCU AT 1420 VIA GURNEY AND ON 2LNC. PT SLID TO PCU BED VIA SLIDE SHEET AND 4 STAFF MEMBERS. PT LETHARGIC UPON ARRIVAL, ROUSED WHEN SLIDE OVER TO PCU BED AND ABLE TO ANSWER THAT SHE IS AT [facility] AND GIVE NAME OF HER . PT THEN BECAME LETHARGIC AGAIN VITALS WERE TAKEN. AT BEDSIDE UPON ARRIVAL.
--- NOTE | 2022-07-22 16:45 | NUR ---
SHIFT SUMMARY PT LETHARGIC SINCE ARRIVAL TO UNIT. HR MAINTINED IN 110'S UPON ARRIVAL AND CLIMBS TO 130'S WHEN ROUSED. PT HAD PERIOD OF THRASHING LEGS IN BED REPEATING "I HAVE TO GO. I HAVE TO GO TO THE BATHROOM." ATTEMPED TO REMAIND PT THAT A CATHETER IS IN PLACE, PT CONTINUED THRASHING LEGS AND REPEATING ABOVE STATEMENT. AT BEDSIDE AND EMOTIONAL DURING EPISODE. DR NOTIFIED OF PT THRASHING AND INCREASED HR, ATIVAN ORDERED. LEFT SHORTLY AFTER. PT RESTING IN BED AFTER ATIVAN WAS GIVEN. WILL FORWARD TO ONCOMING RN.
[2022-07-22 16:47] LABS: Base Excess Venous 8.6 mmol/L; Bicarbonate Venous 31.6 mmol/L (24.0-30.0); PCO2 Venous 36.9 mmHg (38-42); pH Blood Venous 7.54 (7.34-7.37)
[2022-07-22 18:38] LABS: Albumin, Blood 1.3 g/dL (3.4-5.0); Albumin/Globulin Ratio 0.2 (0.8-1.8); Bilirubin, Total 5.6 mg/dL (0.1-1.0); Bun/Creatinine Ratio 7.1 (12.0-20.0); Calcium, Blood 7.5 mg/dL (8.5-10.1); Creatinine, Blood 1.84 mg/dL (0.40-1.00); Globulin, Blood 6.1 g/dL (2.2-4.0); Potassium, Blood 3.2 mmol/L (3.5-5.5); Prolactin 28.5 ng/mL; Total Protein, Blood 7.4 g/dL (6.4-8.2)
--- NOTE | 2022-07-22 22:21 | NUR ---
CARE ASSUMPTION: PATIENT LYING ON LEFT SIDE FOR SAFETY, RESPONDS TO PAINFUL STIMULI, DOES NOT FOLLOW COMMANDS AND HAS ONLY RESPONDED WITH HER NAME ONCE. UPDATED SPOUSE ON PATIENT CONDITION. PER SPOUSE DO NOT UPDATE OTHER FAMILY MEMBERS. PATIENT HR >100 AND OTHER VS WNL. FLUIDS RUNNING PER EMAR. BED LOW WITH SEIZURE PADS IN PLACE.
[2022-07-23 00:02] LABS: Bun/Creatinine Ratio 7.8 (12.0-20.0); Calcium, Blood 7.9 mg/dL (8.5-10.1); Creatinine, Blood 1.8 mg/dL (0.40-1.00); Potassium, Blood 3.4 mmol/L (3.5-5.5)
--- NOTE | 2022-07-23 03:56 | NUR ---
TRANSFER OF CARE: PATIENT WAS TRANSFERRED TO ICU 13 FOLLOWING DIRECTOR TRADING INITIATION FOR INTUBATION. BEDSIDE REPORT GIVEN TO NAIDA DAY RN. PATIENT HAD A WITNESSED SEIZURE ~0300 AND DOSE OF ATIVAN WAS GIVEN. STAFF WAS CHANGING PATIENT'S BRIEF AND BEDDING WHEN PATIENT HAD A SECOND SEIZURE LASTING >15 MIN. TWO DOSES OF ATIVAN WERE GIVEN DURING THAT TIME. PATIENT'S RESPIRATIONS WERE 6-10/MIN. PATIENT WAS SUCTIONED AND TEETH PARTICLES WERE NOTED IN TUBE. DIRECTOR TRADING WAS CALLED ~0330 WHEN MDS WERE NOT REACHED. THIS RN CALLED THE SPOUSE AND UPDATED HIM ON PATIENT STATUS. PER SPOUSE, PATIENT DOESN'T HAVE UPPER 4 TEETH.
[2022-07-23 04:35] LABS: Hematocrit 27.1 % (33.0-51.0); Hemoglobin 9.6 g/dL (11.5-16.0); Mean Corpuscular HGB 31.4 pg (26.0-34.0); Mean Corpuscular HGB Conc 35.4 g/dL (31.5-36.5); Mean Corpuscular Volume 89 fL (80-100); Mean Platelet Volume 11.3 fL (9.1-12.4); Platelet Count 151 K/mm3 (150-400); RDW Coefficient Variation 20.7 % (11.7-14.2); RDW Standard Deviation 60.5 fL (35.1-46.3); Red Blood Cell Count 3.06 M/mm3 (3.80-5.20); White Blood Cell Count 19.08 K/mm3 (4.00-11.30)
[2022-07-23 04:51] LABS: International Normalized Ratio 2.61; Prothrombin Time Results 25.7 Sec (9.7-11.5)
[2022-07-23 05:13] LABS: Albumin, Blood 1.5 g/dL (3.4-5.0); Albumin/Globulin Ratio 0.2 (0.8-1.8); Bun/Creatinine Ratio 8.1 (12.0-20.0); Calcium, Blood 7.9 mg/dL (8.5-10.1); Creatinine, Blood 1.72 mg/dL (0.40-1.00); Globulin, Blood 6.6 g/dL (2.2-4.0); Potassium, Blood 3.3 mmol/L (3.5-5.5); Thyroid Stimulating Hormone 2.91 uIU/mL (0.360-4.800); Total Protein, Blood 8.1 g/dL (6.4-8.2)
--- NOTE | 2022-07-23 07:15 | NUR ---
SHIFT SUMMARY PT TX FROM PCU TO ICU ROOM 13 AFTER MULTIPLE SEIZURES @ 0335. PT UNABLE TO ADEQUATELY PROTECT HER AIRWAY. PT NOT RESPONDING/ FOLLOWING COMMANDS. DR ZULUAGA, RT, AND STAFF AT BEDSIDE FOR RSI. MEDICATIONS ETOMIDATE-15MG @ 0351 SUCCINYLCHOLINE-100MG @ 0352 7.5 ETT @ 22 GUM CONFIRMED WITH F/U C-XRAY. OGT ALSO CONFIRMED, TO LIS. PT TAKEN DIRECTLY TO CT AFTER INTUBATION c RT AT BEDSIDE. CT RESULTS IN CHART. VENT SETTINGS-VCA: 16/410/60%/ PEEP-5 c SATS >90%. PT SEDATED c PROPOFOL, TITRATING AT THIS TIME. TEMP PROBE CASANOVA DRAINING DRAGAN URINE, PT AFEBRILE. PT WITH LARGE, LIQUID BM AROUND 0600, RECTAL TUBE INSERTED, NOW DRAINING LIGHT BROWN LIQUID STOOL. MEGAN RESTRAINTS IN PLACE TO PROTECT ETT/ LINES. PTS SPOUSE ARRIVED TO BEDSIDE AROUND 0430 AND UPDATED OF PLAN OF CARE. SPOUSE TO GO HOME FOR THE MORNING, CONTACT NAME/ NUMBER IN CHART- GIRMA: [phone]. REPORT GIVEN TO ONCOMING NURSE.
--- NOTE | 2022-07-23 11:35 | NUR ---
CARE OF PT ASSUMED AT 0700. PT SEDATED ON PROPOFOL AT 25MCG. PT MILDLY RESTLESS, REACTS TO PAIN/NOXIOUS STIMULI. BP HAD BEEN TRENDING DOWN. DR MELENDEZ CALLED AROUND 0800 AND UPDATED ON NEW CONSULT. LEVOPHED AND PICC LINE ORDERED. PT'S CALLED AND UPDATED WELL. PICC PLACED W/O DIFFICULTY. LEVOPHED STARTED AT 4MCG AND REMAINS AT 4MCG TO KEEP MAP >65. VENT: VC 16(410/60) 60%/[address] MELENDEZ REDUCED FIO2 TO 40%. ECHO ORDERED. NS DC'D. AT BEDSIDE NOW AND WAS UPDATED BY DR MELENDEZ.
[2022-07-23 17:24] LABS: Bun/Creatinine Ratio 8.3 (12.0-20.0); Calcium, Blood 7.8 mg/dL (8.5-10.1); Creatinine, Blood 1.45 mg/dL (0.40-1.00); Potassium, Blood 3.3 mmol/L (3.5-5.5)
--- NOTE | 2022-07-23 18:43 | NUR ---
PROPOFOL REMAINED AT 25MCG T/O SHIFT, PT ADEQUATELY SEDATED, MILDLY RESTLESS AT TIMES, REACTS TO NOXIOUS STIMULI. MINIMAL ETT SECRETIONS. LEVOPHED TITRATED UP TO 8MCG TO KEEP MAP >65. IN TO VISIT X2, BRIEFLY. DR MELENDEZ SPOKE WITH PT'S . D5 STARTED X 1LITER. 80MEQ KCL GIVEN PT. FIO2 TITRATED TO 50%. SATS 90-92%.
--- NOTE | 2022-07-23 20:15 | NUR ---
SHIFT ASSESSMENT BEDSIDE REPORT RECEIVED FROM BORIS SOTOMAYOR. PT INTUBATED AND SEDATED, PULLS AWAY FROM NOXIOUS STIMULI, BITES DOWN DURING ORAL CARE. VENT SETTINGS: VCA-16/410/50%/ PEEP 5 c O2 SATS >90%. PROPOFOL GTT INFUSING @ 25MCG/KG/MIN & LEVOPHED @ 10MCG/MIN FOR MAP GOAL >65. OGT CLAMPED. RECTAL TUBE DRAINING LIQUID STOOL. TEMP PROBE CASANOVA DRAINING DARK DRAGAN URINE, AFEBRILE. WILL CONTINUE TO MONITOR CLOSELY.
[2022-07-24 04:25] LABS: Hematocrit 28.5 % (33.0-51.0); Hemoglobin 10.1 g/dL (11.5-16.0); Mean Corpuscular HGB 31.6 pg (26.0-34.0); Mean Corpuscular HGB Conc 35.4 g/dL (31.5-36.5); Mean Corpuscular Volume 89 fL (80-100); Mean Platelet Volume 11.5 fL (9.1-12.4); NRBC ABSOLUTE 0.02 K/mm3 (0.00-0.02); NRBC Auto 0.1 /100 WBC (0.0-0.2); Platelet Count 188 K/mm3 (150-400); RDW Coefficient Variation 21.5 % (11.7-14.2); RDW Standard Deviation 63.7 fL (35.1-46.3); White Blood Cell Count 20.43 K/mm3 (4.00-11.30)
[2022-07-24 04:41] LABS: International Normalized Ratio 2.58; Prothrombin Time Results 25.5 Sec (9.7-11.5)
[2022-07-24 04:45] LABS: Albumin, Blood 1.3 g/dL (3.4-5.0); Albumin/Globulin Ratio 0.2 (0.8-1.8); Bilirubin, Total 4.8 mg/dL (0.1-1.0); Bun/Creatinine Ratio 9.2 (12.0-20.0); Calcium, Blood 7.8 mg/dL (8.5-10.1); Creatinine, Blood 1.2 mg/dL (0.40-1.00); Globulin, Blood 6.4 g/dL (2.2-4.0); Phosphorus, Blood 1.8 mg/dL (2.5-4.9); Potassium, Blood 3.7 mmol/L (3.5-5.5); Total Protein, Blood 7.7 g/dL (6.4-8.2)
[2022-07-24 06:09] LABS: BASOPHILS PERCENT MAN 1 % (0-2); EOSINOPHILS PERCENT MAN 0 % (0-6); LYMPHOCYTES ABSOLUTE MAN 3.06 K/mm3 (0.84-5.20); LYMPHOCYTES PERCENT MAN 15 % (21-46); MONOCYTES ABSOLUTE MAN 1.83 K/mm3 (0.16-1.47); MONOCYTES PERCENT MAN 9 % (4-13); NEUTROPHILS ABSOLUTE MAN 15.32 K/mm3 (1.96-9.15); SEG NEUTROPHILS PERCENT MAN 75 % (41-73); TOTAL CELLS COUNTED 100
--- NOTE | 2022-07-24 09:17 | NUR ---
CARE OF PT ASSUMED AT 0700. PT SEDATED ON PROPOFOL AT 15MCG FOR MECH VENT JEFF. PT MILDLY RESTLESS AT TIMES, RESPONDS TO CARE AND NOXIOUS STIMULI, DOES NOT OPEN EYES, OR FOLLOW COMMANDS. LEVOPHED AT 10MCG AND INCREASED TO 12MCG TO KEEP MAP >65. LEFT ANKLE MORE SWOLLEN TODAY, AROUND 3+ EDEMA WITH BRUSING. PT'S STATES SHE FELL DOWN THE STAIRS, AND HAS BEEN FALLING A LOT AT HOME. DR POTTER IN TO SEE PT, GIVEN UPDATE, PLANS TO XRAY ANKLE.
--- NOTE | 2022-07-24 14:31 | NUR ---
PT CAME IN, DR MELENDEZ SPOKE W PT'S AT BEDSIDE. PT'S GIRMA INFORMED ME THAT SHE DOESN'T HAVE INCISOR TEETH AND HAS A PARTIAL AT HOME; SO TEETH WERE NOT BROKEN DURING SEIZURE. BLEEDING ON HER TOP GUMS MUST HAVE CAUSED THE CONFUSION. PT HAS NON-DISPLACED FX TO LEFT ANKLE; ORTHO TO BE CONSULTED. 1L LR BOLUS GIVEN WITH GOOD RESULTS; LEVOPHED HAS BEEN TITRATED DOWN TO 8MCG. PT BECAME INCREASINGLY MORE RESTLESS/AGITATED, PULLING ON RESTRAINTS. STILL DOES NOT OPEN EYES OR FOLLOW COMMANDS, DOES RESPOND TO PAIN. PT BECOMES STIFF AT TIMES, EXTENDING ARMS AND LEGS, AND ROTATING WRIST INWARD SLIGHTLY. DR MELENDEZ EXAMINED PT, PT DOES REACT TO PAIN AND PULLS ARMS UP TOWARDS PAINFUL STIMULI. PROPOFOL INCREASED TO 30MCG FOR INCREASED AGITATION.
--- NOTE | 2022-07-24 19:11 | NUR ---
PT CONTINUED TO BECOME MORE AGITATED T/O SHIFT, NEVER OPENING EYES, OR FOLLOW COMMANDS. DR MELENDEZ CALLED AND NOTIFIED. ATIVAN ORDERED 2-4MG Q1HR PRN. 2MG GIVEN W GOOD EFFECT. PROPOFOL AT 30MCG, LEVOPHED AT 8MCG. DR WEST'S ANSWERING SERVICE CALLED AND NOTIFED OF CONSULT.
--- NOTE | 2022-07-24 20:30 | NUR ---
SHIFT ASSESSMENT ASSUMED CARE OF PT @ 1900, BEDSIDE REPORT RECEIVED FROM BORIS SOTOMAYOR. PT REMAINS INTUBATED AND SEDATED c PROPOFOL. PT REMAINS ON LEVOPHED, CURRENTLY @ 8MCG/MIN FOR MAP >65. PT APPEARS TO BE MORE RESTLESS THAN PRIOR SHIFT, STILL NOT FOLLOWING COMMANDS. LS REMAIN COARSE, SCANT SECRETIONS. OGT CLAMPED. RECTAL TUBE c SMALL AMNT LOOSE STOOL. CASANOVA CATH DRAINING DRAGAN URINE. L ANKLE SWOLLEN, ICE BEING APPLIED INTERMITTENTLY.
[2022-07-25 03:48] LABS: Hemoglobin 9.8 g/dL (11.5-16.0); Mean Corpuscular HGB 31.3 pg (26.0-34.0); Mean Corpuscular Volume 90 fL (80-100); Mean Platelet Volume 11.2 fL (9.1-12.4); NRBC ABSOLUTE 0.02 K/mm3 (0.00-0.02); NRBC Auto 0.1 /100 WBC (0.0-0.2); Platelet Count 168 K/mm3 (150-400); RDW Coefficient Variation 21.8 % (11.7-14.2); RDW Standard Deviation 66.6 fL (35.1-46.3); Red Blood Cell Count 3.13 M/mm3 (3.80-5.20); White Blood Cell Count 20.38 K/mm3 (4.00-11.30)
[2022-07-25 04:10] LABS: Albumin, Blood 1.3 g/dL (3.4-5.0); Albumin/Globulin Ratio 0.2 (0.8-1.8); Bilirubin, Total 4.7 mg/dL (0.1-1.0); Bun/Creatinine Ratio 8.5 (12.0-20.0); Calcium, Blood 7.1 mg/dL (8.5-10.1); Creatinine, Blood 1.06 mg/dL (0.40-1.00); Globulin, Blood 6.1 g/dL (2.2-4.0); Magnesium, Blood 1.7 mg/dL (1.6-2.4); Phosphorus, Blood 4.7 mg/dL (2.5-4.9); Potassium, Blood 4.9 mmol/L (3.5-5.5); Total Protein, Blood 7.4 g/dL (6.4-8.2)
--- NOTE | 2022-07-25 10:26 | NUR ---
ADJUSTED SOME SETTINGS ON THE VENT, DOWN TO 50%, PEEP OF 5. PT TURNED AND UNABLE TO MAINTAIN SATURATIONS A 90%, DISCUSSED WITH , FIO2 BACK TO 60% WITH SATS @ 88%.
--- NOTE | 2022-07-25 12:53 | NUR ---
PLACED PT BACK DOWN TO 60% AFTER TITRATING UP EARLIER WITH POSITION CHANGE. SHE IS SITTING MORE UPRIGHT IN THE BED AND HER SATS DROP WHEN SHE IS LAID FLAT. HAS JUST ARRIVED.
--- NOTE | 2022-07-25 13:20 | NUR ---
AUBREY'S IS CRYING AT THE BEDSIDE, VISIBLY UPSET. UPON ENCOUNTER, HE SAYS HE WANTS TO SEE THE NURSE, THE DOCTOR. WHEN ASKED ABOUT HER FALL AT HOME HE GETS ANGRY, SAYS, "I TOLD YOU PEOPLE THAT I DON'T KNOW". INFORMED THAT THE ANKLE ON THE LEFT IS FRACTURED. HE APPEARS SURPRISED. CURSES. PALLIATIVE CARE CALLED, DELFINO CAME TO THE ROOM. IS SAYING, "YOU DON'T KNOW HOW HARD IT IS TO NOT GO HOME AND PULL THE TRIGGER". DELFINO CALLED IN SECURITIES CLERK LIANG RIVERA. TELLS LIANG, HE DOESN'T BELIEVE IN ANA, HE BELIEVES IN HIS . HIS BACK PAIN (REPORTS SURGERY ON BACK JUST A FEW DAYS AGO) AND THAT IT "DOESN'T MATTER, JUST MY ". HE REPORTS HITTING THE REFRIGERATOR JUST THIS MORNING. ALLOWING DELFINO AND LIANG WITH THE .
--- NOTE | 2022-07-25 13:36 | NUR ---
LATE ENTRY: 0950 CAM BOOT APPLIED TO THE LEFT ANKLE PER 'S ORDERS. PT'S HEEL PADDED WITH HEEL PROTECTOR UNDER THE BOOT.
--- NOTE | 2022-07-25 13:38 | NUR ---
Spiritual care visit conducted. Patient is on a ventilator. Pt's spouse Wagner and Palliative RN Shobha are present. Wagner is emotional and shares about his addictive history and his struggles with anger and processing his spouses medical condition. I provide therapeutic listening, de-escalation tequniques and a calming presence. Pt responds well and hugs Shobha and I, then leaves peacefully. I will continue to remain available.
--- NOTE | 2022-07-25 16:50 | NUR ---
AUBREY IS STARTING TO RESPOND WITH THE SEDATION BEING TURNED DOWN, SHE IS NOT FOLLOWING COMMANDS BUT SHE IS MOVING HER RIGHT LEG DURING ORAL CARE. LEFT LEG CONTINUES WITH THE BOOT. STOPPED IN TO SEE PT, PT WAS TURNED AND CLEANED UP SINCE SHE LEAKED AROUND THE RECTAL TUBE.
--- NOTE | 2022-07-25 18:19 | NUR ---
AUBREY CONTINUES ON THE VENT A/C 16/410/10/50%. NOREPINEPHRINE TITRATE TO MAP >65, PROPOFOL @ 20MCG/KG, PRECEDEX @ 0.4MCG/KG, NS @ TKO, LASIX GIVEN PER ORDERS. RECTAL TUBE WITH 500ML OUT. BRUISES CONTINUE OVER HER ENTIRE BODY, LEFT HAND, RIGHT ARM, RIGHT SHOULDER, SCAPULA, ANKLES, THIGHS. CAM BOOT REMAINS ON THE LEFT LEG, ICE PRN AND ELEVATION.
--- NOTE | 2022-07-25 18:58 | NUR ---
Called to meet with patient . He was at bedside crying making strong statments about his anger and drinking. He was repetative and looked impaired. States he also drinks heavily. Called chaplian we reviewed her care briefly and talked about self care for him. He expressed anger then wanted hugs and soothing from us very labile and distraught. He left came back and then finally went home. Review of pt spouse with security. They borught him up on camera so they would know who he was. Review of spouse with charge nurse and safety for staff. Will continue to be a support to him and assess his stability. He rosanne be more difficult after she is off ventilator. advised him he needs to try to pull it togeter for her rehab phase.
--- NOTE | 2022-07-25 19:00 | NUR ---
ASSUMED CARE OF PATIENT AT THIS TIME PATIENT SEDATED ON VENTILATOR RESTING COMFORTABLY IN BED. PROPOFOL RUNNING AT 20/HR, PRECEDEX AT 0.4/HR, LEVO AT 12/MIN. PATIENT CODE STATUS AND ALLERGIES REVIEWED DURING BEDSIDE REPORT.
[2022-07-26 01:06] LABS: Vancomycin, Trough 28.1 ug/mL (5.0-10.0)
[2022-07-26 04:12] LABS: BASOPHILS ABSOLUTE AUTO 0.16 K/mm3 (0.00-0.23); BASOPHILS PERCENT AUTO 1 % (0-2); EOSINOPHILS PERCENT AUTO 2 % (0-6); Hemoglobin 9.8 g/dL (11.5-16.0); IMMATURE GRAN ABSOLUTE AUTO 0.25 K/mm3 (0.00-0.10); IMMATURE GRAN PERCENT AUTO 1 % (0-1); LYMPHOCYTES ABSOLUTE AUTO 2.74 K/mm3 (0.84-5.20); LYMPHOCYTES PERCENT AUTO 15 % (21-46); MONOCYTES ABSOLUTE AUTO 2.11 K/mm3 (0.16-1.47); MONOCYTES PERCENT AUTO 12 % (4-13); Mean Corpuscular HGB 31.5 pg (26.0-34.0); Mean Corpuscular Volume 90 fL (80-100); Mean Platelet Volume 11.2 fL (9.1-12.4); NEUTROPHILS ABSOLUTE AUTO 12.59 K/mm3 (1.96-9.15); NEUTROPHILS PERCENT AUTO 69 % (41-73); NRBC ABSOLUTE 0.02 K/mm3 (0.00-0.02); NRBC Auto 0.1 /100 WBC (0.0-0.2); Platelet Count 149 K/mm3 (150-400); RDW Coefficient Variation 21.4 % (11.7-14.2); RDW Standard Deviation 66.7 fL (35.1-46.3); Red Blood Cell Count 3.11 M/mm3 (3.80-5.20); White Blood Cell Count 18.15 K/mm3 (4.00-11.30)
[2022-07-26 04:38] LABS: Albumin, Blood 1.2 g/dL (3.4-5.0); Albumin/Globulin Ratio 0.2 (0.8-1.8); Bilirubin, Direct 3.9 mg/dL (0.0-0.3); Bun/Creatinine Ratio 8.7 (12.0-20.0); Calcium, Blood 7.4 mg/dL (8.5-10.1); Creatinine, Blood 1.26 mg/dL (0.40-1.00); Globulin, Blood 6.2 g/dL (2.2-4.0); Magnesium, Blood 1.8 mg/dL (1.6-2.4); Potassium, Blood 4.3 mmol/L (3.5-5.5); Total Protein, Blood 7.4 g/dL (6.4-8.2)
--- NOTE | 2022-07-26 06:21 | NUR ---
SHIFT SUMMARY NEURO: PATIENT SEDATED ON VENTILATOR. SLOWLY WEANED PROPOFOL PATIENT WAS NOT RESPONDING TO PAINFUL STIMULI. PROPOFOL OFF AT 2330. AT O400 DURING ASSESSMENT, PATIENT NOTED TO HAVE LEFT EYE DEVIATION. AM LABS DRAWN AND MD NOTIFIED. CT ORDERED FOR THIS AM. AFTER SEDATION NO LONGER ON BOARD, PATIENT WITHDRAWING TO PAINFUL STIMULI. GRIMACING, SHRUGGING SHOULDERS, AND MOVING MOUTH AROUND ETT. ORAL CARE PERFORMED AND MOUTH NOTED TO HAVE SOME BLOODY SECRETIONS. PATIENT NOT FOLLOWING COMMANDS. CARDIAC: PATIENT ON LEVOPHED FOR MAP >65. TITRATING PER EMAR. LEVO AT 5 THIS AM. PATIENT TEMPERATURE DROPPING, WARM BLANKETS APPLIED. HR SR IN THE 70'S. RESPIRATORY: VENTILATOR SETTINGS LARGELY UNCHANGED. AC 410/16/45%/10. PATIENT TOLERATING WELL WITH GOOD VENT COMPLIANCE, NO IN-LINE SECRETIONS. LUNGS CLEAR AND DIM. PATIENT OXYGEN SATS BETTER WHEN PATIENT IS RIGHT LUNG UP. O2 MONITOR EAR CLIP CHANGED SIDES Q2 HOURS. GI: RECTAL TUBE IN PLACE. NO OUTPUT OVERNIGHT. OGT IN PLACE. POSITION VERIFIED WITH AIR BOLUS. REMOVED AND REPLACED 200ML GREEN STOMACH CONTENTS. ABDOMEN FIRM AND DISTENDED. DISTANT HYPOACTIVE BOWEL SOUNDS. : CASANOVA IN PLACE DRAINING TO GRAVITY. 750 UOP OVERNIGHT. SKIN: SCATTERED BRUISING OVER BODY. EXCORIATION IN GROIN. PICTURES TAKEN OF BRUISES AND PLACED IN CHART. CONCERN RAISED OVER ORIGIN OF BRUISES. DISCUSSED WITH DAY SHIFT RN. OTHER: PATIENT LABS REVEAL HYPONATREMIA, NS 0.9% STARTED PER MD.
--- NOTE | 2022-07-26 07:32 | NUR ---
ASSUMED CARE OF AUBREY THIS AM AT 0700, DURING BEDSIDE REPORT PT WITH DIS- CONJIGATE GAZE, LEFT EYE DEVIATING UPWARD. ONLY ON PRECEDEX AT 0.4MCG/KG WITH WITHDRAWAL TO NOXIOUS STIMULI. PULLS SHOULDERS UPWARD FROM STIMULUS, MINIMAL HAND AND WRIST MOVEMENT. GRIMACE WITH STIMULUS. NO COMMANDS FOLLOWED, NO RE- SPONSE TO VERBAL STIMULUS. HANDS AND FEET EDEMATOUS AND BRUISED. NO PURPOSE- FUL MOVEMENT NOTED. WILL CONTINUE TO ASSESS AND TREAT PER ORDERS. VENT SET AT 16/410/10/45%
--- NOTE | 2022-07-26 08:13 | NUR ---
PT GRIMACES WITH ORAL CARE, NO REACTION TO EYELASH TOUCH. PALE/WAN APPEARING WITH YELLOW UNDERTONES, SCLERA YELLOW, CRUSTY.
--- NOTE | 2022-07-26 10:16 | NUR ---
JUST RETURNED FROM CT, PATIENT TOLERATED WELL. OXYGEN WAS INCREASED WHILE THE PATIENT WAS LYING FLAT. RETURN TO BASELINE PRIOR TO GOING TO CT.
--- NOTE | 2022-07-26 11:02 | NUR ---
IS HERE, INFORMED THAT THE PATIENT IS NOT ON ANY MEDICATIONS TO KEEP HER ASLEEP. HE SAYS, GOOD. HE IS TOLD THAT SHE HAS NOT WOKEN UP FOR US. HE SAID, OK, I WILL GET HER TO WAKE UP.
--- NOTE | 2022-07-26 12:20 | NUR ---
DURING NOON TURN PT ATTEMPTED TO OPEN HER RIGHT EYE. NO RESPONSE TO COMMANDS OR OTHER SPONTANEOUS MOVEMENT. MINIMAL GRIMACE TO ORAL CARE. AT THE BEDSIDE, MORE CALM TODAY. HE WAS SHARING THAT AUBREY HAS BEEN UNWELL SINCE MEMORIAL WEEKEND, THAT SHE HAS BEEN FALLING REPEATEDLY AND THAT HE "THOUGHT SHE WAS GETTING BETTER" BECAUSE SHE WAS USING A WALKER TO GET AROUND. SAID THAT SHE HAD BEEN FORGETTFUL BUT NOTHING TOO REMARKABLE THAT WOULD HELP HIM UNDERSTAND WHAT IS HAPPENING.
--- NOTE | 2022-07-26 12:59 | NUR ---
PER RECOMMENDATION OF MEDICAL STAFF, THE PRECEDEX HAS BEEN TURNED OFF AT THIS TIME. WILL CONTINUE TO ASSESS MENTATION AND REPORT BACK TO PHYSICIANS.
--- NOTE | 2022-07-26 13:44 | NUR ---
pt noted to be moving her right arm, pulling against the restraint. she is unable to knowledge management advisor on command or open her eyes, she did wiggle her toes on command two separate times on the right foot. pt was told where she was and what is happening. will continue to monitor and treat.
--- NOTE | 2022-07-26 16:16 | NUR ---
PT TURNED AND REPOSITIONED, SHE OPENS EYES TO LOUD NAME CALLING. SHE DOESN'T FOLLOW ANY COMMANDS, GRIMACES WITH ORAL CARE. NO PURPOSEFUL ARM OR LEG MOVEMENTS, NONE BY COMMAND. LEGS AND TRUNK STILL HEAVILY EDEMATOUS DESPITE THE DIURESING. RECTAL TUBE WITH GOOD OUTPUT, CASANOVA WITH DRAGAN RETURN. NO SEDATION ON AT THIS TIME. DR. AYALA IN TO SEE PT
--- NOTE | 2022-07-26 16:18 | NUR ---
Spiritual care visit conducted. As I promised Wagner, pt's spouse, I provided prayer for the pt. Pt's RN joins me in the prayer. Wagner is not present. Pt shows minimal response with the moving of her hand. I will continue to remain available.
--- NOTE | 2022-07-26 17:17 | NUR ---
AUBREY IS TOTALLY OFF ALL SEDATION, HER FLUIDS ARE TKO, TUBE FEEDING HAS BEEN STARTED, PIVOT 1.5 @ 25ML TO GOAL OF 45ML/HR. AC/VC+ 16/410/8/35%. CASANOVA WITH <600ML OUT WITH DIURESIS, RECTAL TUBE WITH 225 OUT. LEGS/TRUNK EDEMATOUS BRUISING REMAINS OVER ENTIRE BODY. PT STILL NOT FOLLOWING COMMANDS, SHE HAS OPENED HER EYES ONCE, WIGGLED HER TOES. NO OTHER PURPOSEFUL MOVEMENTS NOTED. LEFT LEG IN BOOT, SWELLING APPRECIATED, ELEVATED PER 'S RECOMMENDA- TION. REPORT TO BORIS SHIN.
[2022-07-27 05:57] LABS: Alanine Aminotransfer (ALT/SGP 31 U/L (12-78); Albumin, Blood 2.2 g/dL (3.4-5.0); Albumin/Globulin Ratio 0.5 (0.8-1.8); Alk Phos 163 U/L (50-136); Anion Gap 10 mmol/L (6-16); Aspartate Aminotrans (AST/SGOT 107 U/L (12-37); Bilirubin, Total 6.6 mg/dL (0.1-1.0); Blood Urea Nitrogen 16 mg/dL (8-24); CO2, Blood 22 mmol/L (21-32); Calcium, Blood 7.8 mg/dL (8.5-10.1); Chloride, Blood 101 mmol/L (98-108); Creatinine, Blood 1.77 mg/dL (0.40-1.00); Globulin, Blood 4.8 g/dL (2.2-4.0); Glomerular Filtration Rate 35 (60-); Glucose, Blood 86 mg/dL (70-99); Phosphorus, Blood 4.1 mg/dL (2.5-4.9); Potassium, Blood 3.2 mmol/L (3.5-5.5); Sodium, Blood 133 mmol/L (136-145); Vancomycin, Random 20.9 ug/mL
[2022-07-27 06:05] LABS: BASOPHILS ABSOLUTE AUTO 0.15 K/mm3 (0.00-0.23); BASOPHILS PERCENT AUTO 1 % (0-2); EOSINOPHILS ABSOLUTE AUTO 0.24 K/mm3 (0.00-0.68); EOSINOPHILS PERCENT AUTO 2 % (0-6); Hematocrit 22.8 % (33.0-51.0); Hemoglobin 8.2 g/dL (11.5-16.0); IMMATURE GRAN ABSOLUTE AUTO 0.14 K/mm3 (0.00-0.10); IMMATURE GRAN PERCENT AUTO 1 % (0-1); LYMPHOCYTES ABSOLUTE AUTO 2.15 K/mm3 (0.84-5.20); LYMPHOCYTES PERCENT AUTO 16 % (21-46); MONOCYTES ABSOLUTE AUTO 1.74 K/mm3 (0.16-1.47); MONOCYTES PERCENT AUTO 13 % (4-13); Mean Corpuscular HGB 32.2 pg (26.0-34.0); Mean Corpuscular Volume 89 fL (80-100); Mean Platelet Volume 11.3 fL (9.1-12.4); NEUTROPHILS ABSOLUTE AUTO 9.21 K/mm3 (1.96-9.15); NEUTROPHILS PERCENT AUTO 68 % (41-73); Platelet Count 122 K/mm3 (150-400); RDW Coefficient Variation 21.7 % (11.7-14.2); RDW Standard Deviation 68.1 fL (35.1-46.3); Red Blood Cell Count 2.55 M/mm3 (3.80-5.20); White Blood Cell Count 13.63 K/mm3 (4.00-11.30)
[2022-07-27 06:22] LABS: International Normalized Ratio 2.19; Prothrombin Time Results 21.8 Sec (9.7-11.5)
--- NOTE | 2022-07-27 06:53 | NUR ---
SHIFT SUMMARY NEURO: PATIENT ON PRECEDEX OVERNIGHT. AROUSABLE WITH PAINFUL STIMULATION. GRIMACES DURING ORAL CARE. HAS MOVED ALL EXTREMITIES SLIGHTYL. LOCALIZES PAIN. OPENS EYES TO NAME. CARDIAC: PATIENT ON LEVOPHED FOR MAP >65. TITRATING PER EMAR. LEVO AT 2 THIS AM. HR SR IN THE 80'S. AFEBRILE. EDEMA NOTED ON IN EXTREMITIES- +2-3. RESPIRATORY: VENTILATOR SETTINGS LARGELY UNCHANGED. AC 410/16/40%/8. PATIENT TOLERATING WELL WITH GOOD VENT COMPLIANCE, CLEAR THIN IN-LINE SECRETIONS. LUNGS CLEAR AND DIM. PATIENT OXYGEN SATS BETTER WHEN PATIENT IS RIGHT LUNG UP. O2 MONITOR EAR CLIP CHANGED SIDES Q2 HOURS. GI: RECTAL TUBE IN PLACE. 400 OUTPUT OVERNIGHT. LEAKING AT SITE. OGT IN PLACE. POSITION VERIFIED. WITH AIR BOLUS. REMOVED AND REPLACED 200ML GREEN STOMACH CONTENTS. ABDOMEN FIRM AND DISTENDED. DISTANT HYPOACTIVE BOWEL SOUNDS. TF RUNNING AT 35/HR : CASANOVA IN PLACE DRAINING TO GRAVITY. 700 UOP OVERNIGHT. SKIN: SCATTERED BRUISING OVER BODY. EXCORIATION IN GROIN.
--- NOTE | 2022-07-27 08:51 | NUR ---
ASSUMED CARE REPORT FROM CARMITA ESCALANTE AT 0700. PT INTUBATED AND SEDATED. VENT SETTINGS AC/VC 18/410/8/45%. LUNGS CLEAR. SMALL AMOUNT OF THIN CLEAR SECRETIONS FROM ETT. PRECEDEX GTT FOR SEDATION. PT SPONT OPENS EYES, DOES NOT MAKE EYE CONTACT. DOES NOT WITHDRAW FROM PAIN, MOVES ALL EXT. DOES NOT FOLLOW COMMANDS. PRECEDEX TITRATED DOWN. SR, RATE 80'S ON MONITOR, LEVO GTT FOR MAP >65. ABD DISTENDED, FIRM, HYPOACTIVE BT. OGT c PIVOT AT GOAL 45 ML/HR c 30 ML FLUSH Q4 HR. NO RESIDUALS THIS AM. SKIN PALE, JAUNDICE. CASANOVA PATENT, DRAINING CLEAR YELLOW URINE TO GRAVITY. RECTAL TUBE IN PLACE, DRAINING TO GRAVITY. BROWN LIQUID STOOL OUT. PICC TO CHELSEA, PG TO MAU. WILL CONTINUE TO MONITOR.
--- NOTE | 2022-07-27 13:48 | NUR ---
Spiritual care visit conducted. Pt is lying in bed and having more movement today. Spouse, Wagner is encouraged by this and yet talks about how he is struggling to cope in healthy ways. He explains about his lack of sleep, his isolation and his alcoholism. I encourage self-care, if not for himself but do it for the patient. I provide gentle hiv counselor and prayer. Wagner is tearful at the prayer but voices appreciation for it. He shows signs of increase in hope and greater resolve to live healthier. I will cotninue to remain available to patient and family.
[2022-07-27 16:03] LABS: Source, Urine Foley catheter
[2022-07-27 16:13] LABS: Appearance, Urine Cloudy (Clear); Blood, Urine 5+ (Neg); Color, Urine Yellow (P-Yellow); Glucose Qualitative, Urine Neg (Neg); Ketones, Urine 2+ (Neg); Leukocyte Esterase, Urine 2+ (Neg); Nitrite, Urine Neg (Neg); Protein, Urine 3+ (Neg); Urobilinogen, Urine NORM (Normal)
[2022-07-27 16:23] LABS: Bilirubin, Urine 1+ (Neg)
[2022-07-27 16:30] LABS: Red Blood Cells, Urine 50-100 /hpf (0-2)
[2022-07-27 16:31] LABS: Bacteria Many /hpf; Squamous Epithelial Cells Mod /hpf (Few)
[2022-07-27 16:32] LABS: Renal Epithelial Few /hpf (0-Rare); Transitional Epithelial Cells Few /hpf (0-Rare)
--- NOTE | 2022-07-27 17:36 | NUR ---
SHIFT SUMMARY PT REMAINS INTUBATED AND SEDATED. VENT SETTINGS AC/VC 16/410/10/55%. LUNGS CLEAR. SMALL AMOUNT OF THIN CLEAR SECRETIONS FROM ETT. PRECEDEX GTT FOR SEDATION, WHEN SEDATION LIGHTENED, PT TRIES TO OPEN EYES TO VERBAL STIMULI, PULLS ON RESTRAINTS, DOES NOT FOLLOW COMMANDS. SEDATION INCREASED D/T INCREASED HR, NOT COUGHING BUT FREQUENT SWALLOWING, RESTLESS IN BED. ST ON MONITOR, RATE 90-110. LEVO GTT CONTINUES AT 2 MCG/MIN, MAP GOAL >[address] MAURO. ABD ROUND, DISTENDED, HYPOACTIVE BT. TUBE FEEDS AT GOAL. CONCERN FOR URINARY RETENTION, CASANOVA FLUSHED WELL, REPLACED, 230 ML URINE OUT, CONTINUES TO DECREASE THROUGHOUT SHIFT. DR MAURO UPDATED ON EVENING CHANGES. LASIX ORDERED. RECTAL TUBE IN PLACE, 600 ML OUT. WILL CONTINUE TO MONITOR UNTIL REPORT TO ONCOMING NURSE.
[2022-07-27 18:13] LABS: Vancomycin, Random 18.3 ug/mL
--- NOTE | 2022-07-27 19:15 | NUR ---
ASSUMED CARE OF PT @1900 DURING BEDSIDE REPORT: PT ON PRECEDEX 0.5MCG/KG/HR. ETT SZ 7.5CM AND 22CM@GUMS. VENT VC/AC /. LEVOPHED 2MCG/MIN. TKO 10MLS/HR. PICC LINE LORIE INFUSING W/10CM EXPOSED. POWER GLIDE MARIBELL SALINE LOCK. CASANOVA CATH PATENT AND DRAINING TO GRAVITY. RECTAL TUBE PATENT AND DRAINING TO GRAVITY.
--- NOTE | 2022-07-27 20:30 | NUR ---
PT HAD 635MLS RESIDUALS. 300MLS REINSTILLED. TF PUT ON PAUSE.
--- NOTE | 2022-07-28 02:00 | NUR ---
PT STILL HAS 450MLS RESIDUALS. REINSTILLED. TF REMAINS PAUSED. PT MOVES ALL EXTREMETIES AND REACHES UP FOR TUBE WHEN RESTRAINTS REMOVED TO REPOSITION. PT TRYING TO SPONTANEOUSLY OPEN EYES DURING CARE. WEAKLY SQUEEZED RIGHT HAND WHEN ASKED.
[2022-07-28 03:56] LABS: Hematocrit 22.4 % (33.0-51.0); Hemoglobin 7.8 g/dL (11.5-16.0); Mean Corpuscular HGB 32.1 pg (26.0-34.0); Mean Corpuscular HGB Conc 34.8 g/dL (31.5-36.5); Mean Corpuscular Volume 92 fL (80-100); Platelet Count 118 K/mm3 (150-400); RDW Coefficient Variation 22.3 % (11.7-14.2); RDW Standard Deviation 71.7 fL (35.1-46.3); Red Blood Cell Count 2.43 M/mm3 (3.80-5.20); White Blood Cell Count 12.94 K/mm3 (4.00-11.30)
[2022-07-28 04:32] LABS: Albumin, Blood 2.5 g/dL (3.4-5.0); Albumin/Globulin Ratio 0.5 (0.8-1.8); Bun/Creatinine Ratio 8.3 (12.0-20.0); Calcium, Blood 8.5 mg/dL (8.5-10.1); Creatinine, Blood 2.54 mg/dL (0.40-1.00); Globulin, Blood 4.9 g/dL (2.2-4.0); Magnesium, Blood 1.9 mg/dL (1.6-2.4); Phosphorus, Blood 2.8 mg/dL (2.5-4.9); Potassium, Blood 3.1 mmol/L (3.5-5.5); Total Protein, Blood 7.4 g/dL (6.4-8.2)
[2022-07-28 06:31] LABS: BAND PERCENT MAN 1 % (0-8); BASOPHILS PERCENT MAN 0 % (0-2); EOSINOPHILS PERCENT MAN 0 % (0-6); LYMPHOCYTES ABSOLUTE MAN 2.19 K/mm3 (0.84-5.20); LYMPHOCYTES PERCENT MAN 17 % (21-46); METAMYELOCYTE ABSOLUTE MAN 0.25 K/mm3 (0.00-0.00); METAMYELOCYTE PERCENT MAN 2 % (0-0); MONOCYTES ABSOLUTE MAN 1.42 K/mm3 (0.16-1.47); MONOCYTES PERCENT MAN 11 % (4-13); NEUTROPHILS ABSOLUTE MAN 9.05 K/mm3 (1.96-9.15); SEG NEUTROPHILS PERCENT MAN 69 % (41-73); TOTAL CELLS COUNTED 100
--- NOTE | 2022-07-28 06:35 | NUR ---
SUMMARY: NEURO/PSYCH/MOBILITY: SEDATED ON PRECEDEX 0.5MCG/KG/HR. PT MOVING ALL EXTREMETIES. OCCASIONALLY PULLING AT SOFT WRIST RESTRAINTS. WILL REACH UP FOR ETT TUBE WHEN RESTRAINTS ARE OFF FOR REPOSTIONING/BATHING. SPONTANEOUSLY OPENING EYES. SQUEEZED RIGHT HAND ON COMMAND. PT MAXIMUM ASSISTANCE FOR ALL ADL'S. PERRL. RESP: RUL AND CHA COARSE, LUNG IGNACIO DIMINISHED THROUGHOUT. ETT 7.5CM AND 22CM @GUMS. AC/VC 16/410/10/60%. RR 16-20'S. SPO2 >92%. SCANT AMOUNT OF THICK SECRETIONS WHEN SUCTIONING. CARDIAC: LEVOPHED 2MCG/MIN. SBP 90'S MAP >65. HR 90'S. EDEMA 2+ IN BLE/BUE. CONTINUOUS CARDIAC MONITORING. GI: RESIDUALS >400MLS THROUGHOUT SHIFT. TF PAUSED @0930. HYPOACTIVE BOWEL TONES IN ALL 4 QUADRANTS. ABDOMEN DISTENDED AND FIRM. RECTAL TUBE IN PLACE WITH OUTPUT OF 200MLS LIQUID BROWN STOOLS. : CASANOVA CATH IN PLACE AND DRAINING TO GRAVITY. KRISTEN RASH. SKIN: SCATTERED BRUISING AND WOUNDS IN VARIOUS STAGES OF HEALING. PG MARIBELL. PICC LORIE. SMALL AMOUNTS OF BLOOD IN MOUTH AND LIPS DURING ORAL CARE.
--- NOTE | 2022-07-28 10:06 | NUR ---
ASSUMED CARE ASSUMED CARE AT 0700. PT CURRENTLY INTUBATED AC/VC 16/410/10/60%. LUNG SOUNDS COARSE W/ DIM BASES. SMALL AMOUNTS OF WHITE BLOODY SECRETIONS SUCTIONED. SR 90's/ SBP 90s. LEVOPHED AT 2mcg/MIN TO KEEP MAPS GREATER THAN 65. FAINT PEDAL PULSES. HYPOACTIVE BT. ABD IS MOD DISTENDED AND FIRM. TF ON HOLD D/T HIGH RESIDUAL. PT OPENS EYES SPONTANEOUSLY. DOES NOT FOLLOW COMMANDS AND MOVES BUE AND RLE. CAM BOOT ON LLE WITH MINIMAL EDEMA AND GOOD CAP REFILL. EDEMATOUS IN BUE/RLE. RESTLESS AND AGITATED AT TIMES. PRECEDEX AT 0.5mcg/KG/HR.
--- NOTE | 2022-07-28 11:06 | NUR ---
Pt remains intubated at this time, remains on precedex for continued agitation and restlessness. She is also on levophed for hypotension. Pt does open her eyes occasionally but is not following commands or tracking. Pt's visited yesterday and according to staff and care notes there were no inappropriate behaviors or actions. Left message for to return call, and placed ethics consult as discussed by care team.
--- NOTE | 2022-07-28 11:49 | NUR ---
PT VERY AGITATED AT THIS TIME. REACHING FOR TUBE, PULLING RESTRAINTS, AND MOVING RLE UP/DOWN. 02 SATS 88-90%. PRECEDEX TITRATED TO 0.7mcg/KG/HR. MEDICATED WITH ATIVAN AND FENTANYL. URINE OUTPUT 25/30ml PER HR. DR MAURO/DR KRISHNAN AWARE.
--- NOTE | 2022-07-28 11:53 | NUR ---
Ethics consult order received and processed. Medical history, clinical trajectory, and family constellation reviewed. The principal is a 47 y/o female with acute kidney injury, hepatic complications, toxic metabolic encephalopathy, who is on mechanical airway support with an elevated mortality score, and a reported low probability of stabilization.It is documented that she exhibits arousability and non-purposeful movement. Concerns have been expressed reagrding the fitness of her spouse as a credible decision maker. This conclusion is predicated on the fact that he shows clear signs of impairment that are thought to be secondary to licit and possibly illicit narcotic consumption. Per [facility] policy, if the is not in a state of reasonable sobriety, he is disqualified from informing the care plan or making clinical choices as a proxy resource. This will be communicated to him by palliative care as a owed courtesy, to reduce the likelihood of such occurrences. In the event that an emergency develops, and a treatment decision needs to be made post haste, and the is found to be under the influence of an intoxicant, the provider is advised to function as the substitute decision maker and allow clinical best practice to dictate the appropriate direction. If the continues to present compromised, and his fitness as a proxy is in question, we will want to consider an emergency guardianship arrangement. Please let me know if you have any questions or concerns. Thank you for this consult. Chidi Adhikari, PhD, MAGDA
--- NOTE | 2022-07-28 11:59 | NUR ---
Ethics consult placed, discussion with Chidi Adhikari. See Ethics note for detail. Plan to discuss reasonable sobriety policy with pt's , so he has the opportunity to be involved in decision making and plan of care of spouse if needed.
--- NOTE | 2022-07-28 13:28 | NUR ---
1310 DR MAURO NOTIFED OF 8ML/HR URINE OUTPUT. VERBAL OF 80MG LASIX. O2 SATS IN LOW 80'S AND PT PULLING ON RESTRAINTS. 2MG OF ATIVAN GIVEN AND PT SUCTIONED. 1320 FIO2 INCREASED TO 100%. SATS 87%. DR MAURO CALLED AND ORDER FOR STAT CHEST XRAY AND INCREASE PEEP RECEIVED.
--- NOTE | 2022-07-28 18:32 | NUR ---
SHIFT SUMMARY PT REMAINS INTUBATED. AC/VC+ 16/410/14/100%. DR MAURO AND PALLITIVE CARE IN TO TALK TO REGARDING PT'S STATUS CHANGE AND OUTCOME. TOTAL OF 161 URINE OUTPUT T/O SHIFT. DR MAURO AWARE. PRECEDEX AT 0.7mcg/KG/HR. LEVOPHED AT 2mcg/MIN.
--- NOTE | 2022-07-28 18:38 | NUR ---
Met with pt's and Dr. Nielsen at pt's bedside. Dr. Nielsen was very gentle, but also very honest with pt's about prognosis. 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 Pt's Wagner is tearful throughout the conversation. He does tell us she would not want to live as a "vegetable" with no meaninful movement, or ability to eat, drink, ambulate or void without assistance. He did not stay long this evening, but he is planning on returning tomorrow, and I plan to stop for a visit then.
--- NOTE | 2022-07-28 19:00 | NUR ---
ASSUMED CARE OF PT @0700. PT SEDATED AND INTUBATED DURING BEDSIDE REPORT APPEARS CALM. PRECEDEX 0.7MCG/KG/HR. ACVC 16/410/14/100%. SPO2 >92%, RR 16. CONTINUOUS CARDIAC MONITORING. HR 80'S, SBP 120'S. LEVOPHED 2MCG/MIN. TF INFUSING 20MLS/HR. CASANOVA CATH IN PLACE AND DRAINING TO GRAVITY. RECTAL TUBE IN PLACE AND DRAINING TO GRAVITY.
--- NOTE | 2022-07-29 00:30 | NUR ---
TF PAUSED D/T HIGH RESIDUALS. WILL RECHECK RESIDUALS IN 1HR PER PROTOCOL.
--- NOTE | 2022-07-29 01:30 | NUR ---
RECHECK RESIDUALS, 50MLS, RESTART TF @20MLS/HR.
[2022-07-29 04:20] LABS: Hematocrit 24.2 % (33.0-51.0); Hemoglobin 8.4 g/dL (11.5-16.0); Mean Corpuscular HGB 32.1 pg (26.0-34.0); Mean Corpuscular HGB Conc 34.7 g/dL (31.5-36.5); Mean Corpuscular Volume 92 fL (80-100); Mean Platelet Volume 11.5 fL (9.1-12.4); Platelet Count 112 K/mm3 (150-400); RDW Coefficient Variation 22.2 % (11.7-14.2); RDW Standard Deviation 71.4 fL (35.1-46.3); Red Blood Cell Count 2.62 M/mm3 (3.80-5.20); White Blood Cell Count 11.52 K/mm3 (4.00-11.30)
--- NOTE | 2022-07-29 04:30 | NUR ---
SISI ISSA RN, RESIDUAL 250MLS, REINSTILLED. CLINICAL JUDGEMENT: TB PUT ON SB.
[2022-07-29 04:40] LABS: Albumin, Blood 3.2 g/dL (3.4-5.0); Albumin/Globulin Ratio 0.7 (0.8-1.8); Bun/Creatinine Ratio 8.9 (12.0-20.0); Calcium, Blood 9.3 mg/dL (8.5-10.1); Creatinine, Blood 3.05 mg/dL (0.40-1.00); Globulin, Blood 4.6 g/dL (2.2-4.0); Magnesium, Blood 1.9 mg/dL (1.6-2.4); Phosphorus, Blood 4.8 mg/dL (2.5-4.9); Potassium, Blood 4.1 mmol/L (3.5-5.5); Total Protein, Blood 7.8 g/dL (6.4-8.2)
[2022-07-29 04:42] LABS: BAND PERCENT MAN 2 % (0-8); BASOPHILS PERCENT MAN 0 % (0-2); EOSINOPHILS PERCENT MAN 0 % (0-6); LYMPHOCYTES ABSOLUTE MAN 1.38 K/mm3 (0.84-5.20); LYMPHOCYTES PERCENT MAN 12 % (21-46); MONOCYTES ABSOLUTE MAN 0.92 K/mm3 (0.16-1.47); MONOCYTES PERCENT MAN 8 % (4-13); NEUTROPHILS ABSOLUTE MAN 9.21 K/mm3 (1.96-9.15); SEG NEUTROPHILS PERCENT MAN 78 % (41-73); TOTAL CELLS COUNTED 100
--- NOTE | 2022-07-29 06:05 | NUR ---
SUMMARY NEURO/PSYCH/MOBILITY: SEDATED ON PRECEDEX 0.7MCG/KG/HR. FENTANYL 50MCG AND ATIVAN 2MG GIVEN PRN FOR AGITATION AND PAIN. PT RESTLESS AT TIMES THROUGHOUT SHIFT. MOVING ALL EXTREMETIES AND OCCASIONALLY PULLING AT SOFT WRIST RESTRAINTS. AFTER PRN MEDICATIONS PT RESTS CALMLY. SPONTANEOUSLY OPENING EYES DURING REPOSTIONING AND ORAL CARE. WILL GRIMACE AND MOVE AWAY FROM PAINFUL STIMULI. DOES NOT RESPOND TO VERBAL COMMANDS. PT MAXIMUM ASSISTANCE FOR ALL ADL'S. PERRL. RESP: RUL AND CHA COARS, DIMINISHED LUNG IGNACOI THROUGHOUT. AC/VC 16/410/10/65%. SPO2 >92% WITH AN OCCASIONAL DESAT TO 88%. RR 16. OCCASIONAL FROTHY BLOOD TINGED ORAL SECRETIONS PRESENT. ETT 7.5CM 22@GUMS. CARDIAC: CONTINUOUS CARDIAC MONITORING. LEVOPHED PUT ON STANDBY DURING SHIFT AND RESTARTED DUE TO DECLINE IN SBP AND MAP. LEVOPHED 2MCG/MIN MAINTAINING A MAP >65. SBP 120'S. HR 80'S. EDEMA 2+ IN BLE/BUE. GI: RESIDUALS HIGH THROUGHOUT SHIFT, TF PUT ON STANDBY AND RESTARTED PER PROTOCOL. TF ON STANDBY DUE TO CONTINUED HIGH RESIDUALS @0400. ABDOMEN DISTENDED AND FIRM. HYPOACTIVE BOWEL TONES IN ALL 4 QUADRANTS. RECTAL TUBE IN PLACE WITH NO OUTPUT DURING SHIFT. : CASANOVA CATH PATENT AND DRAINING TO GRAVITY. 150MLS DARK YELLOW URINE. KRISTEN AREA RASH REMAINS THE SAME INITIAL ASSESSMENT. SKIN: SCATTERED BRUISING AND WOUNDS IN VARIOUS STAGES OF HEALING. PG MARIBELL. PICC LORIE. BLEEDING GUMS AND LIPS.
[2022-07-29 10:30] LABS: Anion Gap 10 mmol/L (6-16); Blood Urea Nitrogen 30 mg/dL (8-24); Bun/Creatinine Ratio 9.6 (12.0-20.0); CO2, Blood 18 mmol/L (21-32); Chloride, Blood 107 mmol/L (98-108); Creatinine, Blood 3.13 mg/dL (0.40-1.00); Glomerular Filtration Rate 18 (60-); Glucose, Blood 139 mg/dL (70-99); Phosphorus, Blood 5.2 mg/dL (2.5-4.9); Potassium, Blood 3.8 mmol/L (3.5-5.5); Sodium, Blood 135 mmol/L (136-145)
--- NOTE | 2022-07-29 10:50 | NUR ---
ASSUMED CARE OF AUBREY AT 0700, SHE WILL OCC OPEN HER EYES, BUT DOES NOT FOLLOW COMMANDS, SHE WILL MOVE HER ARMS TOWARDS HER FACE WHEN SHE IS UNRESTRAINED. SHE IS TURNED WITH CEILING LIFT, COUGHING, SOME GURGLING HEARD. ORAL SECRETIONS ARE RED TINGED, PT'S EDEMATOUS FROM MID THIGH DOWN + HANDS. OVERALL YELLOW APPEARANCED, CASANOVA WITH MINIMAL URINE RETURN, DARK DRAGAN, RECTAL TUBE WITH BROWN LIQUID. VENT FIO2 HAS BEEN TITRATED DOWN TO 50%, PEEP WAS INCREASED TO 12 PER . HAS BEEN CONSULTED AND ORDERS HAVE BEEN RECEIVED. FAMILY HAS BEEN UPDATED.
[2022-07-29 11:21] LABS: PCO2 Arterial 28.8 mmHg (35-45); PO2 Arterial 67.9 mmHg (80-100)
--- NOTE | 2022-07-29 13:42 | NUR ---
THE BLOOD PRESSURE CUFF WAS REMOVED AT 1100 FOR AN ABG, IT WAS NOT CYCLING FROM THAT POINT ON. PT WAS FREQUENTLY ASSESSED AND TAKEN CARE OF DURING THE TIME THAT THE CYCLE WAS NOT HAPPENING. HI LIFT OPERATOR MADE AWARE. ALSO ROUNDED DURING THIS TIME. MEDS AND CARE WERE DONE DURING THIS TIME.
--- NOTE | 2022-07-29 13:49 | NUR ---
AUBREY CONTINUES TO HAVE ELEVATED RESIDUALS, THIS TIME WAS ONLY 200 ML. IT WAS REINSTILLED AND THE MIDODRINE WAS GIVEN. HAS BEEN AT THE BEDSIDE FOR ABOUT AN HOUR. APPROPRIATE. QUESTIONS ANSWERED. WOULD LIKE TO TRY TO BE HERE FOR THE DOCTOR. ENCOURAGED TO COME IN THE MORNING AROUND 0900 TO SPEAK WITH HIM.
--- NOTE | 2022-07-29 15:15 | NUR ---
PT VISIBLY TREMBLING, CLUCKING WITH THE TUBE, ATIVAN GIVEN PER MAR.
--- NOTE | 2022-07-29 16:24 | NUR ---
AUBREY CONTINUES TO HAVE ORAL BLEEDING WITH ORAL CARE, A BLOOD CLOT THE SIZE OF A QUARTER WAS JUST CLEANED FROM HER MOUTH WITH THIS CARE. NO EVIDENCE OF BLEEDING ANY WHERE ELSE.
--- NOTE | 2022-07-29 18:36 | NUR ---
AUBREY CONTINUES ON THE VENTILATOR AC 16/410/12/60%. HER PEEP AND HER FIO2 WERE ADJUSTED DURING THIS SHIFT. SHE RETURNS MINIMAL SECRETIONS VIA ETT SUCT. HER EYES WILL OPEN WITH HER NAME CALLED OUT, THEY WILL OPEN WHEN SHE IS TOUCHED OR REPOSITIONED. SHE DOES NOT FOLLOW COMMANDS. SHE CONTINUES ON THE PRECEDEX @ 0.6MCG/KG, NOREPI IS CURRENTLY ON SB, NS @ TKO, BUMEX @ 1MG/HR. TF REMAINS OFF, WITH RESIDUALS AT 300MLS. LUNGS CLEAR, BELLY REMAINS UNCHANGED, RECTAL TUBE WITH MINIMAL OUTPUT. WITH 'S ADDITIONAL DIURESING THIS SHIFT SHE HAS PUT OUT ONLY 175ML THIS SHIFT. SHE REMAINS WITH +FLUID BALANCE THIS SHIFT. HER EDEMA CONTINUES FROM MID THIGH TO TOES, HANDS EDEMATOUS. SHE REACHES FOR HER FACE WHEN THE RESTRAINTS ARE OFF FOR ROM/POSITION CHANGE. SHE CONTINUES TO HAVE THE OCC TWITCHING OF THE SHOULDERS, ARMS AND FACE. RANDOM, UNTRIGGERED BY ANYTHING NOTICEABLE. NO OTHER PURPOSEFUL MOVEMENTS NOTED. WILL CONTINUE TO MONITOR AND TREAT AND REPORT OFF TO NEXT SHIFT WHEN ABLE.
--- NOTE | 2022-07-29 22:28 | NUR ---
ASSUMPTION OF CARE: ASSUMED CARE OF PT AT 1900. PT INTUBATED AND SEDATED AT THIS TIME WITH PRECEDEX INFUSING AT 0.6 MCG/KG/HR AND VENT SETTINGS AC/VC 16/410/12/70%. PT HAS COARSE LUNG SOUNDS BILATERALLY AND DIM BASES; O2 LEVELS ARE MAINTAINING 88<. PT DESATS DURING REPOSITIONING AND ORAL CARE, FIO2 INCREASED TO 100% AT THESE TIMES TO HELP THE PT TO RECOVER TO 02 LEVELS 90<. DURING ORAL CARE, BLOOD NOTED. S1/S2 ASCULTATED; HR IN THE 90'S AND SBP 110'S. BUMEX IN INFUSING AT 1 MG/HR. PT HAS A ROUDN ABD THAT IS FIRM UPON PALPATION, BUT PT DOES NOT SHOW GRIMINACING WHEN PALPATED. HYPOACTIVE BS IN ALL FOUR QUADRANTS. PT HAS OGT PRESENT AND TUBE FEEDINGS ARE ON STAND-BY AT THIS TIME D/T HIGH RISIDUALS. OGT FLUSHES EASILY WITH MED ADMINISTRATION. RECTAL IN PLACE THAT IS DRAINING TO GRAVITY WITH BROWN DRAINAGE. PT HAS WARM EXTREMITIES AND CAP REFIL REMAINS < 3 SECONDS. NOTED EDEMA IN THE BLE AND BUE. PT HAS A CASANOVA CATHETER PRESENT AND DRAINING TO GRAVITY; URINE YELLOW AND CLEAR. PT HAS A PG IN THE MARIBELL THAT FLUSHED AND DRAWS BLOOD EASILY. PICC LINE IN THE LORIE THAT FLUSES, DRAWS BLOOD AND INFUSING AT THIS TIME. WILL CONTINUE TO MONTIOR THROUGHOUT THE SHIFT.
[2022-07-30 04:58] LABS: BASOPHILS ABSOLUTE AUTO 0.03 K/mm3 (0.00-0.23); BASOPHILS PERCENT AUTO 0 % (0-2); EOSINOPHILS ABSOLUTE AUTO 0.02 K/mm3 (0.00-0.68); EOSINOPHILS PERCENT AUTO 0 % (0-6); Hematocrit 21.1 % (33.0-51.0); Hemoglobin 7.4 g/dL (11.5-16.0); IMMATURE GRAN ABSOLUTE AUTO 0.58 K/mm3 (0.00-0.10); IMMATURE GRAN PERCENT AUTO 4 % (0-1); LYMPHOCYTES ABSOLUTE AUTO 1.46 K/mm3 (0.84-5.20); LYMPHOCYTES PERCENT AUTO 9 % (21-46); MONOCYTES ABSOLUTE AUTO 2.27 K/mm3 (0.16-1.47); MONOCYTES PERCENT AUTO 15 % (4-13); Mean Corpuscular HGB 32.6 pg (26.0-34.0); Mean Corpuscular HGB Conc 35.1 g/dL (31.5-36.5); Mean Corpuscular Volume 93 fL (80-100); Mean Platelet Volume 10.7 fL (9.1-12.4); NEUTROPHILS ABSOLUTE AUTO 11.21 K/mm3 (1.96-9.15); NEUTROPHILS PERCENT AUTO 72 % (41-73); Platelet Count 103 K/mm3 (150-400); RDW Coefficient Variation 22.1 % (11.7-14.2); Red Blood Cell Count 2.27 M/mm3 (3.80-5.20); White Blood Cell Count 15.57 K/mm3 (4.00-11.30)
[2022-07-30 05:27] LABS: Alanine Aminotransfer (ALT/SGP 31 U/L (12-78); Albumin, Blood 3.5 g/dL (3.4-5.0); Albumin/Globulin Ratio 0.8 (0.8-1.8); Alk Phos 123 U/L (50-136); Anion Gap 11 mmol/L (6-16); Aspartate Aminotrans (AST/SGOT 85 U/L (12-37); Bilirubin, Total 5.8 mg/dL (0.1-1.0); Blood Urea Nitrogen 40 mg/dL (8-24); CO2, Blood 19 mmol/L (21-32); Calcium, Blood 9.1 mg/dL (8.5-10.1); Chloride, Blood 108 mmol/L (98-108); Creatinine, Blood 3.65 mg/dL (0.40-1.00); Globulin, Blood 4.2 g/dL (2.2-4.0); Glomerular Filtration Rate 15 (60-); Glucose, Blood 109 mg/dL (70-99); Magnesium, Blood 2.3 mg/dL (1.6-2.4); Phosphorus, Blood 4.9 mg/dL (2.5-4.9); Potassium, Blood 3.5 mmol/L (3.5-5.5); Sodium, Blood 138 mmol/L (136-145); Total Protein, Blood 7.7 g/dL (6.4-8.2); Vancomycin, Random 22.9 ug/mL
--- NOTE | 2022-07-30 05:49 | NUR ---
SHIFT SUMMARY: NO ACUTE CHANGES THIS SHIFT. PT REMAINS INTUBATED AND SEDATED WITH PRECEDEX INFUSING AT 0.6 MCG/KG/HR AND VENT SETTINGS AC/VC 16/410/12/70%. PT HAS CLEAR LUNG SOUNDS IN THE UPPER LEFT LOBES AND COARSE SOUNDS IN THE UPPER RIGHT LOBE; DIMINISHED IN THE BASES BILATERALLY. PT O2 LEVELS MAINTAINING 92<. PT HR IN THE 80'S WITH SBP 120'S; SR THROUGHOUT THE SHIFT. URINE OUTPUT IMPROVED THIS SHIFT. PT EDEMA PROGRESSING UPWARD AND NOW PITTING EDEMA NOTED IN THE LOWER BACK AND DOWN. COMPLETE BED BATH DONE THIS SHIFT. PERINEAL AREA REDDENED BUT BETTER THAN LAST NIGHT; COATED IN POWDER. HEEL PROTECTORS REPLACED DURING BED BATH. PT HAD SIGNIFICANT BLOODY, ORAL SECRETIONS THIS SHIFT. PT CONTINUES TO HAVE HIGH RISIDUALS THIS SHIFT, SO TUBE FEEDINGS ARE BACK ON STAND-BY. WILL CONTINUE TO MONITOR UNTIL ONCOMING NURSE ARRIVES.
--- NOTE | 2022-07-30 10:59 | NUR ---
ASSUMED CARE OF PT, REPORT RCV'D FROM BORIS DE LA GARZA. PT INTUBATED AND LIGHTLY SEDATED. VENT SETTINGS AC 16/410/12/70% WITH SATS 88-95%. LUNG SOUNDS DIM T/O, MINIMAL TO NO SECRETIONS FROM ETT. BLOODY ORAL SECRETIONS NOTED. PT OPENS EYES SPONTANEOUSLY, MOVES ALL EXTREMETIES. FAILS TO FOLLOW COMMANDS OR TRACK MOVEMENTS. PIVOT 1.5 RESTARTED AT 20 ML/HR, GOAL RATE 45 ML/HR. ABDOMEN MODERATELY DISTENDED, HYPOACTIVE BOWEL TONES. RECTAL TUBE PATENT AND DRAINING LIQUID BROWN STOOL. BUMEX GTT @10 ML/HR, CASANOVA CATH PATENT AND DRAINING TO GRAVITY. PRECEDEX @ 0.6 MCG/KG/HR. PT'S AT BEDSIDE FOR MEETING WITH QUANTITATIVE ANALYST MARKETING, REQUESTED LIST OF MEDICATIONS BEING GIVEN TO PT- THIS RN WROTE THEM DOWN AND GAVE TO . VSS AT THIS TIME, SEE FULL SHIFT ASSESSMENT.
--- NOTE | 2022-07-30 13:00 | NUR ---
PLACED PRECEDEX ON STANDBY FOR NEURO EXAMINE. PT HAD INCREASED AGITATION, NO PURPOSEFUL MOVEMENTS AND FAILED TO FOLLOW COMMANDS. PTS CALLED AND WAS UPDATED.
--- NOTE | 2022-07-30 17:57 | NUR ---
SHIFT SUMMARY PT REMAINS INTUBATED AND LIGHTLY SEDATED. VENT SETTINGS REMAINS UNCHANGED. PRECEDEX REMAINS AT 06 MCG/KG/HR. PT MOVES ALL EXTREMETIES SPONTANEOUSLY, NO PURPOSEFUL MOVEMENT AT THIS TIME. PT OPENS EYES SPONTANEOUSLY, FAILS TO TRACK MOVEMENT OR TURN EYES TOWARD VERBAL STIMULI. PT EASILY AGITATED DURING CARE AND WITHDRAWS FROM NOXIOUS STIMULI. BUMEX GTT REMAINS INFUSING, 400 ML URINARY OUTPUT THIS SHIFT. 500 ML WATERY STOOL FROM RECTAL TUBE. VSS WNL THIS SHIFT. PT'S AND MOTHER IN LAW UPDATED SEVERAL TIMES THIS SHIFT. WILL REPORT TO ONCOMING NURSE.
--- NOTE | 2022-07-31 00:39 | NUR ---
CHECKED RESIDUALS AT 2000 GOT 450 MLS OUT OF NG THAT WAS BROWN IN COLOR. DISCARDED HELD TF X 2 HRS RESTARTED AT 2200. CHECKED RESIDUALS AGAIN AT 0000 GOT 250 MLS OF RESIDUALS THAT STARTED BROWN AND WITH BLOOD CLOTS AND THEN TURNED JUST RED AND BLOODY. NOTIFIED DR. RENTERIA WHO ORDERED NG TO BE PUT ON LOW INTERMITTENT SUCTION AND TO INCREASE IV PUSH PROTONIX TO BID AND GIVE A DOSE NOW. WILL CONTINUE TO MONITOR.
--- NOTE | 2022-07-31 01:35 | NUR ---
MOVD ET TO THE LEFT
[2022-07-31 05:29] LABS: International Normalized Ratio 2.12; Prothrombin Time Results 21.2 Sec (9.7-11.5)
--- NOTE | 2022-07-31 05:39 | NUR ---
END OF SHIFT SUMMARY PT REMAINS INTUBATED AND SEDATED. PT HAD 450 ML RESIDUAL @2000 HELD TX 2 HRS RESTARTED AT 2200. RECHECKED RESIDUALS AT 0000 GOT 250 MLS OF BLOODY RESIDUAL MIXED WITH TF. NOTIFIED DR. RENTERIA PUT NG TO LOW INTERMITTENT SUCTION PER HIS ORDER AND INCREASED PROTONIX TO BID AND GAVE A ONE TIME ADDITIONAL DOSE. PRECEDEX REMAINS AT 0.6. PT DOES NOD HEAD YES TO PAIN AND WHEN IN PAIN STARTS OVERBREATHING VENT. GAVE FENTANYL PUSH PER ORDERS X 2 DOSES FOR THIS SHIFT. PT DID GET ANXIOUS AND WAS PULLING AGAINST RESTRAINTS GAVE ATIVAN PER ORDERS. WHEN RESTRAINTS RELEASED FOR SKIN CHECK OR REPOSITION PT DOES REACH FOR ET AND LINES. MINIMAL OUTPUT FROM RECTAL TUBE ONLY 50 LS THIS SHIFT. WILL GIVE REPORT TO ONCOMING RN.
[2022-07-31 05:43] LABS: Albumin, Blood 3.5 g/dL (3.4-5.0); Anion Gap 12 mmol/L (6-16); Blood Urea Nitrogen 53 mg/dL (8-24); Bun/Creatinine Ratio 12.9 (12.0-20.0); CO2, Blood 18 mmol/L (21-32); Calcium, Blood 9.3 mg/dL (8.5-10.1); Chloride, Blood 108 mmol/L (98-108); Glomerular Filtration Rate 13 (60-); Glucose, Blood 96 mg/dL (70-99); Magnesium, Blood 2.2 mg/dL (1.6-2.4); Phosphorus, Blood 5.2 mg/dL (2.5-4.9); Potassium, Blood 2.9 mmol/L (3.5-5.5); Sodium, Blood 138 mmol/L (136-145)
[2022-07-31 05:55] LABS: BASOPHILS ABSOLUTE AUTO 0.04 K/mm3 (0.00-0.23); BASOPHILS PERCENT AUTO 0 % (0-2); EOSINOPHILS ABSOLUTE AUTO 0.04 K/mm3 (0.00-0.68); EOSINOPHILS PERCENT AUTO 0 % (0-6); Hematocrit 21.8 % (33.0-51.0); Hemoglobin 7.3 g/dL (11.5-16.0); IMMATURE GRAN ABSOLUTE AUTO 0.24 K/mm3 (0.00-0.10); IMMATURE GRAN PERCENT AUTO 2 % (0-1); LYMPHOCYTES ABSOLUTE AUTO 2.02 K/mm3 (0.84-5.20); LYMPHOCYTES PERCENT AUTO 12 % (21-46); MONOCYTES ABSOLUTE AUTO 1.74 K/mm3 (0.16-1.47); MONOCYTES PERCENT AUTO 11 % (4-13); Mean Corpuscular HGB 31.7 pg (26.0-34.0); Mean Corpuscular HGB Conc 33.5 g/dL (31.5-36.5); Mean Corpuscular Volume 95 fL (80-100); Mean Platelet Volume 11.3 fL (9.1-12.4); NEUTROPHILS ABSOLUTE AUTO 12.21 K/mm3 (1.96-9.15); NEUTROPHILS PERCENT AUTO 75 % (41-73); Platelet Count 93 K/mm3 (150-400); RDW Coefficient Variation 22.5 % (11.7-14.2); RDW Standard Deviation 74.4 fL (35.1-46.3); White Blood Cell Count 16.29 K/mm3 (4.00-11.30)
--- NOTE | 2022-07-31 07:59 | NUR ---
AM NOTE... ASSUMED CARE OF PT AT 0700, THE PT IS INTUBATED AND PARTIALLY SEDATED AT THIS TIME, PRECEDEX DRIP IS RUNNING AT 0.6MCG/KG THE PT OPENS HER EYES TO VERBAL STIMULI NODS HER HEAD WHEN ASKED "CAN YOU HEAR ME?" BUT DOES NOT FOLLOW ANY COMMANDS. THE PT'S VENT SETTINGS ARE AC: 16/410/12/70% WITH O2 SATS >90% L/S COARSE WITH SCATTERED WHEEZES IN THE UPPER LOBES, COARSE IN THE RIGHT MID AND DIM IN THE BILATERAL LOWER LOBES. ET TUBE IS 7.5 AND 22 A THE TEETH, DRY BLOOD AND SMALL SCABS ARE NOTED AROUND THE PT'S MOUTH. ORAL SECRETIONS ARE BRIGHT PINK/RED. OG TUBE IS SET TO LIS WALL SUCTION WITH BROWNISH RED GASTRIC CONTENTS WITH SMALL CLOTS NOTED IN THE TUBING. TUBE FEEDS ARE OFF AT THIS TIME. BT ARE VERY HYPOACTIVE, ABD HAS MODERATE DISTENTION AND IS FIRM TO PALPATION. RECTAL TUBE IS PATENT AND DRAINING TO GRAVITY. THE PT'S CASANOVA IS PATENT AND DRAINING TO GRAVITY. BUMEX DRIP IS RUNNING AT 10MLS/HR. WILL CONTINUE TO MONITOR.
--- NOTE | 2022-07-31 10:56 | NUR ---
PT UPDATE... DR. RENTERIA AT THE BEDSIDE TO ASSESS THE PT AT 0930. NEW ORDERS TO RESTART TUBE FEEDS AT 10MLS/HR. ORDER FOR ABD XRAY WAS GIVEN. THE PT STARTED TO HAVE MAE RED URINE FROM THE CASANOVA STARTING AT 1015. WILL CONTINUE TO MONITOR.
--- NOTE | 2022-07-31 12:08 | NUR ---
PT UPDATE.... THE PT'S TUBE FEEDS WERE RESTARTED AT 1000 AT 10MLS/HR PER DR. RENTERIA. AT 1200 RESIDUALS WERE CHECKED, THERE WAS 250MLS OF REDISH BROWN GASTRIC CONTENTS WITH A MODERATE AMOUNT OF SMALL CLOTS THE SIZE OF A SESAME SEED MIXED WITH A SMALL AMOUNT OF TUBE FEED. 250MLS WAS REINTILLED AT THIS TIME. PROPOFOL DRIP WAS RESTARTED AT 10MCG/KG TO HELP KEEP THE PT CALM AND MORE COMFORTABLE. WILL CONTINUE TO MONITOR.
--- NOTE | 2022-07-31 12:32 | NUR ---
PT UPDATE... THIS RN CALLED DR. DIAZ TO UPDATE HIM ON THE PT'S HOURLY URINARY OUTPUT WHILE ON THE BUMEX DRIP. PT'S HOURLY UO HAS BEEN: 0915: 25MLS. 1015: 5 MLS. 1115:12 MLS. 1215: [address] DIAZ HE WANTS 160MG IV LASIX ONCE AND THEN CALL IN 2HRS WITH HOURLY UO. WILL CONTINUE TO MONITOR.
[2022-07-31 14:24] LABS: Hematocrit 21.7 % (33.0-51.0); Hemoglobin 7.3 g/dL (11.5-16.0)
[2022-07-31 14:42] LABS: Albumin, Blood 3.6 g/dL (3.4-5.0); Bilirubin, Total 4.8 mg/dL (0.1-1.0); Bun/Creatinine Ratio 13.3 (12.0-20.0); Calcium, Blood 8.9 mg/dL (8.5-10.1); Creatinine, Blood 4.37 mg/dL (0.40-1.00); Globulin, Blood 3.7 g/dL (2.2-4.0); Potassium, Blood 3.5 mmol/L (3.5-5.5); Total Protein, Blood 7.3 g/dL (6.4-8.2)
--- NOTE | 2022-07-31 18:33 | NUR ---
SHIFT SUMMARY... NO ACUTE NEGATIVE CHANGES ASSESSED SINCE PREVIOUS NOTES. THE PT'S VS HAVE BEEN STABLE. THE PT WOKE UP AND WAS ABLE TO TRACK AND NOD HER HEAD TO SIMPLE QUESTIONS WHILE THE WAS HERE. THE PT'S URINARY OUTPUT THIS SHIFT HAS BEEN 210MLS DR. DIAZ NOTIFIED AND NO NEW ORDERS WERE GIVEN. THE PT'S TUBE FEEDS WERE RESTARTED AT 10MLS/HR SINCE 1000 RESIDUALS HAVE BEEN 250MLS AT 1200 AND 210MLS AT 1800. THE PT'S RECTAL TUBE IS DRAINING LIQUID GREEN/BROWN STOOL TO GRAVITY. WILL CONTINUE TO MONITOR.
[2022-08-01 03:50] LABS: BASOPHILS ABSOLUTE AUTO 0.03 K/mm3 (0.00-0.23); BASOPHILS PERCENT AUTO 0 % (0-2); EOSINOPHILS PERCENT AUTO 0 % (0-6); Hematocrit 22.6 % (33.0-51.0); Hemoglobin 7.5 g/dL (11.5-16.0); IMMATURE GRAN ABSOLUTE AUTO 0.31 K/mm3 (0.00-0.10); IMMATURE GRAN PERCENT AUTO 2 % (0-1); LYMPHOCYTES ABSOLUTE AUTO 1.59 K/mm3 (0.84-5.20); LYMPHOCYTES PERCENT AUTO 9 % (21-46); MONOCYTES ABSOLUTE AUTO 1.84 K/mm3 (0.16-1.47); MONOCYTES PERCENT AUTO 10 % (4-13); Mean Corpuscular HGB 31.9 pg (26.0-34.0); Mean Corpuscular HGB Conc 33.2 g/dL (31.5-36.5); Mean Corpuscular Volume 96 fL (80-100); Mean Platelet Volume 12.9 fL (9.1-12.4); NEUTROPHILS ABSOLUTE AUTO 14.11 K/mm3 (1.96-9.15); NEUTROPHILS PERCENT AUTO 79 % (41-73); NRBC ABSOLUTE 0.02 K/mm3 (0.00-0.02); NRBC Auto 0.1 /100 WBC (0.0-0.2); Platelet Count 82 K/mm3 (150-400); RDW Coefficient Variation 22.3 % (11.7-14.2); RDW Standard Deviation 73.8 fL (35.1-46.3); Red Blood Cell Count 2.35 M/mm3 (3.80-5.20); White Blood Cell Count 17.88 K/mm3 (4.00-11.30)
[2022-08-01 04:23] LABS: Albumin, Blood 3.8 g/dL (3.4-5.0); Bilirubin, Direct 3.2 mg/dL (0.0-0.3); Bilirubin, Indirect 1.5 mg/dL (0.1-0.7); Bilirubin, Total 4.7 mg/dL (0.1-1.0); Bun/Creatinine Ratio 13.9 (12.0-20.0); Calcium, Blood 9.3 mg/dL (8.5-10.1); Creatinine, Blood 4.59 mg/dL (0.40-1.00); Globulin, Blood 3.7 g/dL (2.2-4.0); Magnesium, Blood 2.3 mg/dL (1.6-2.4); Phosphorus, Blood 6.5 mg/dL (2.5-4.9); Potassium, Blood 3.5 mmol/L (3.5-5.5); Total Protein, Blood 7.5 g/dL (6.4-8.2)
--- NOTE | 2022-08-01 05:49 | NUR ---
END OF SHIFT SUMMARY NO ACUTE CHANGES OVERNIGHT. PT OPENS EYES TO VOICE AND WILL FOLLOW SIMPLE COMMANDS. REMAINS ON PRECEDEX @ 0.7, PROPOFOL @ 10, BUMEX @ 2, AND PT HAS KVO FOR IV ABX. TF WAS HELD AT BEGINING OF SHIFT FOR RESIDUAL OF 550 MLS THAT WAS DARK BROWN AND RED WITH BLOOD CLOTS DISCARDED. RESTARTED AT 2200 LAST RESIDUAL THIS MORNING WAS 150 AGAIN DARK BROWN AND RED WITH BLOOD CLOTS. WILL CONTINUE TO MONITOR. NO VENT CHANGES OVERNIGHT. WILL GIVE REPORT TO ONCOMING RN.
[2022-08-01 06:36] LABS: PCO2 Arterial 28.7 mmHg (35-45); PO2 Arterial 76.3 mmHg (80-100); pH Blood Arterial 7.33 (7.35-7.45)
--- NOTE | 2022-08-01 08:31 | NUR ---
ASSUMED CARE BEDSIDE REPORT FROM CHRIS ESCALANTE AT 0700. PT INTUBATED AND SEDATED. VENT SETTINGS AC/VC 16/410/12/50%. LUNGS CLEAR. SMALL AMOUNT OF LAGUNAS SECRETIONS FROM ETT. COUGH/GAG/SWALLOW REFLEX PRESENT. PROPOFOL AND PRECEDEX GTT INFUSING FOR SEDATION. PT OPENS EYES TO VERBAL STIMULI. DOES NOT FOLLOW COMMANDS. DOES NOT TRACK. SR, RATE 70'S. BP STABLE. SKIN COOL, JAUNDICE, PALE. ABD DISTENDED, FIRM, HYPOACTIVE BT. RESIDUALS 120 ML THIS AM, INCREASED TUBE FEEDS TO 20 ML/HR. CASANOVA PATENT, OLIURIC, DRAINING TO GRAVITY. RECTAL TUBE IN PLACE, LIQUID BROWN STOOL TO GRAVITY. PICC TO LUE, PG TO RUE, DRESSINGS C/D/I. CAM BOOT TO LLE. WILL CONTINUE TO MONITOR.
[2022-08-01 15:34] LABS: Automated BF RBC Count 0.002 M/mm3 (0-0); Automated BF WBC Count 0.125 K/mm3 (0-999)
[2022-08-01 15:36] LABS: Body Fluid WBC Count 125 /mm3 (0-999); RBC Count, Body Fluid 2000 /mm3 (0-0)
[2022-08-01 15:41] LABS: Glucose, Body Fluid 136 mg/dL
[2022-08-01 15:45] LABS: Albumin, Body Fluid 1.5 g/dL
[2022-08-01 15:53] LABS: Protein, Body Fluid 2.9 g/dL
[2022-08-01 16:04] LABS: Total Cell Count, Body Fluid 100
[2022-08-01 16:05] LABS: Appearance, Body Fluid Hazy (Clear); Color, Body Fluid Yellow (None-Yellow)
--- NOTE | 2022-08-01 16:57 | NUR ---
SHIFT SUMMARY PT REMAINS INTUBATED AND SEDATED. VENT SETTINGS AC/VC 16/410/12/50%. LUNGS CLEAR. SMALL AMOUNT OF THICK LAGUNAS SECRETIONS FROM ETT. PRECEDEX ON STANDBY, SEDATED c PROPOFOL FOR INCREASED CALORIC INTAKE. OPENS EYES TO VERBAL STIMULI. DOES NOT FOLLOW COMMANDS. GRIMACES c CARE. LUNGS CLEAR. SR, RATE 70-90'S. BP STABLE. TUBE FEEDS STOPPED D/T HIGH RESIDUALS, CPN TO BE STARTED. ABD CONTINUES TO BE DISTENDED, FIRM, HYPOACTIVE BT. RECTAL TUBE DRAINING TO GRAVITY, 150 ML LIQUID BROWN STOOL OUT. CASANOVA PATENT, DRAINED 150 ML YELLOW URINE c SEDIMENT TO GRAVITY, CONTINUING TO ATTEMPT TO DIURESE. PARCENTESIS COMPLETED, 3.2L OFF, SENT TO LAB. SO UPDATED. WILL CONTINUE TO MONITOR UNTIL REPORT TO ONCOMING NURSE.
--- NOTE | 2022-08-02 01:11 | NUR ---
PT IN BED HAVING TREMORS BUT WOULD OPEN EYES TO VOICE. PT KEP MOVING LEGS ND RUBBING HEAD GAVE ATIVAN PER ORDERS AND PT RELAXED NOW RESTING COMFORTABLY.
--- NOTE | 2022-08-02 03:02 | NUR ---
CAM BOOT RELASED PT HAS GOO PEDL PULE AND CMS INTACT.
[2022-08-02 04:31] LABS: BASOPHILS PERCENT AUTO 0 % (0-2); EOSINOPHILS ABSOLUTE AUTO 0.01 K/mm3 (0.00-0.68); EOSINOPHILS PERCENT AUTO 0 % (0-6); Hematocrit 22.3 % (33.0-51.0); Hemoglobin 7.5 g/dL (11.5-16.0); IMMATURE GRAN ABSOLUTE AUTO 1.62 K/mm3 (0.00-0.10); IMMATURE GRAN PERCENT AUTO 4 % (0-1); LYMPHOCYTES ABSOLUTE AUTO 2.37 K/mm3 (0.84-5.20); LYMPHOCYTES PERCENT AUTO 6 % (21-46); MONOCYTES PERCENT AUTO 10 % (4-13); Mean Corpuscular HGB 32.5 pg (26.0-34.0); Mean Corpuscular HGB Conc 33.6 g/dL (31.5-36.5); Mean Corpuscular Volume 97 fL (80-100); Mean Platelet Volume 12.8 fL (9.1-12.4); NEUTROPHILS ABSOLUTE AUTO 33.16 K/mm3 (1.96-9.15); NEUTROPHILS PERCENT AUTO 81 % (41-73); NRBC ABSOLUTE 0.09 K/mm3 (0.00-0.02); NRBC Auto 0.2 /100 WBC (0.0-0.2); Platelet Count 138 K/mm3 (150-400); RDW Coefficient Variation 22.7 % (11.7-14.2); RDW Standard Deviation 74.2 fL (35.1-46.3); Red Blood Cell Count 2.31 M/mm3 (3.80-5.20); White Blood Cell Count 41.26 K/mm3 (4.00-11.30)
[2022-08-02 05:00] LABS: Alanine Aminotransfer (ALT/SGP 27 U/L (12-78); Albumin, Blood 3.3 g/dL (3.4-5.0); Albumin/Globulin Ratio 0.9 (0.8-1.8); Alk Phos 91 U/L (50-136); Anion Gap 13 mmol/L (6-16); Aspartate Aminotrans (AST/SGOT 66 U/L (12-37); Bilirubin, Total 3.7 mg/dL (0.1-1.0); Blood Urea Nitrogen 74 mg/dL (8-24); Bun/Creatinine Ratio 14.6 (12.0-20.0); CO2, Blood 18 mmol/L (21-32); Calcium, Blood 9.3 mg/dL (8.5-10.1); Chloride, Blood 106 mmol/L (98-108); Creatinine, Blood 5.06 mg/dL (0.40-1.00); Globulin, Blood 3.8 g/dL (2.2-4.0); Glomerular Filtration Rate 10 (60-); Glucose, Blood 200 mg/dL (70-99); Magnesium, Blood 2.2 mg/dL (1.6-2.4); Phosphorus, Blood 6.3 mg/dL (2.5-4.9); Potassium, Blood 2.9 mmol/L (3.5-5.5); Sodium, Blood 137 mmol/L (136-145); Total Protein, Blood 7.1 g/dL (6.4-8.2); Triglycerides 188 mg/dL (30-160)
--- NOTE | 2022-08-02 05:39 | NUR ---
END OF SHIFT SUMMARY NO ACUTE CHANGES OVERNIGHT. POTASSIUM 2.9 DR. DIAZ NOTIFIED HE ORDERED 40 MEQ POTASSIUM IV. DO NOT GIVE LASIX UNTIL IV POTASSIUM IS HUNG AND FINISHED. DRAW POTASSIUM LEVEL ONCE IV POTASSIUM COMPLETE CALL DR. DIAZ WITH RESULT AND CONFIRM WHETHER HE WANTS LASIX GIVEN. PT NOT FOLLOWING COMMANDS TONIGHT. DOSES OPEN EYES AND COUGH WILL MOVE ALL EXTREMITIES RANDOMLY BUT NOT TOO COMMAND. COPIOUS AMOUNTS OF ORAL SECRETIONS SUCTIONED OVER NIGHT. WILL CONTINUE TO MONITOR AND WILL GIVE BEDSIDE REPORT TO ONCOMING RN.
--- NOTE | 2022-08-02 07:00 | NUR ---
ASSUMED CARE ASSUMED CARE AT 0700. PT INTUBATED AND SEDATED. VENT SETTINGS AC/VC 16/410/12/50%. PROPOFOL AT 30MCG/KG/MIN. LUNG SOUNDS COARSE ON THE R AND DIM IN THE BASES. COPIOUS AMOUNTS OF ORAL SECRETIONS. COUGH/GAG/SWALLOW REFLEXS PRESENT. GRIMACES WITH ORAL CARE, DID NOT OPEN EYES TO VERBAL STIMULI, DOES NOT FOLLOW DIRECTIONS. ST 100's, VSS. HYPOACTIVE BT. CPN INFUSING AT GOAL. RECTAL TUBE IN PLACE. CASANOVA DRAINING TO GRAVITY.
[2022-08-02 10:47] LABS: Appearance, Urine Clear (Clear); Bilirubin, Urine Neg (Neg); Blood, Urine 5+ (Neg); Color, Urine Yellow (P-Yellow); Glucose Qualitative, Urine Neg (Neg); Ketones, Urine 1+ (Neg); Leukocyte Esterase, Urine 2+ (Neg); Nitrite, Urine Neg (Neg); Protein, Urine 3+ (Neg); Urobilinogen, Urine NORM (Normal)
--- NOTE | 2022-08-02 11:07 | NUR ---
DR DIAZ NOTIFED OF POTASSIUM LEVEL OF 3.4. OKAY GIVEN TO GIVE DIURETICS. ORDER RECEIVED FOR POTASSIUM REPLACEMENT.
[2022-08-02 11:47] LABS: Source, Urine Foley catheter
[2022-08-02 11:55] LABS: Red Blood Cells, Urine 50-100 /hpf (0-2)
[2022-08-02 11:56] LABS: Amorphous Light (0-Heavy); Bacteria Many /hpf; Squamous Epithelial Cells Few /hpf (Few); Yeast/Fungi Urine Rare /hpf
[2022-08-02 11:57] LABS: Granular Casts 0-2 /lpf (0); Hyaline Casts 0-2 /lpf (0-2); Renal Epithelial Few /hpf (0-Rare); Transitional Epithelial Cells Rare /hpf (0-Rare)
--- NOTE | 2022-08-02 12:30 | NUR ---
PT SPOUSE VERBALIZING CONCERN THAT PT HAS NOT RECEIVED DIALYSIS YET. DR. DIAZ CONTACTED AND SPOKE WITH GIRMA REGARDING DIALYSIS CATHETER PLACEMENT. PT SPOUSE AGREES TO THIS. DR. RENTERIA CONTACTED AND NOTIFIED OF DR. DIAZ REQUEST FOR DIALYSIS CATHETER PLACEMENT. ALSO, DR. RENTERIA AWARE THAT OGT HAS DRAINED 800 CC OF HEMATEMESIS. ANTICIPATE DIALYSIS CATHETER PLACEMENT @ 1315. COMPUTER SYSTEMS AUDITOR DAVY NOTIFIED.
[2022-08-02 14:07] LABS: C DIFFICILE DNA POSITIVE (Negative)
[2022-08-02 14:33] LABS: Hemoglobin 7.2 g/dL (11.5-16.0)
--- NOTE | 2022-08-02 18:04 | NUR ---
SHIFT SUMMARY PT OFF PROPOFOL [id number]. PT ABLE TO OPEN EYES SPONTANIOUSLY TO NAME. DOES NOT FOLLOW DIRECTIONS OR TRACK. RESTARTED PROPOFOL FOR VENT COMPLIANCE WHEN SWITCHING BACK TO AC/VC. PT TOLERATED PS 10 WELL W/ NO SEDATION [id number]. PT HAVING CONTINUOS MUSCLE CONTRACTIONS T/O FACE AND EXTREMITIES. WORSE W/ STIMULATION. DR RENTERIA AWARE. REGLAN D/C. VSS. OGT TO LIS. 850 OUTPUT. CURRENTLY RED W/ CLOTS. PROTONIX BOLUS GIVEN AND GTT INITIATED. CASANOVA PATENT AND DRAINING TO GRAVITY. 100 OUTPUT T/O SHIFT. MINIMAL RECTAL TUBE OUTPUT.
--- NOTE | 2022-08-02 19:06 | NUR ---
POST DIALYSIS NOTE: FIRST TX FOR THIS PATIENT. TOLERATED WELL UP TO 1 HOUR AND 20M MINUTES. MAX DOSES OF ALBUMIN AND MIDIDRIN HAVE BEEN GIVEN. PT MAP DOWN INTO LOW 50' DECISION MADE WITH PRIMARY RN TO STOP TX AND RETURN BLOOD. DR DIAZ UPDATED AND WE WILL RESUME ANOTHER TX IN AM. [place]
--- NOTE | 2022-08-02 19:15 | NUR ---
ASSUMED CARE OF PT @1900. PT SEDATED AND INTUBATED. PROPOFOL 20MCG/KG/MIN. AC VC 16/410/12/45%, ETT 7.5CM AND 22CM AT THE GUMS. RR 16, SPO2 95%. HR 90'S, SBP 130'S. TPN INFUSING @55MLS/HR. OG TUBE SET TO LIS. CASANOVA CATH DRAINING TO GRAVITY. RECTAL TUBE DRAINING TO GRAVITY. TKO 10MLS/HR.
--- NOTE | 2022-08-03 | NUR ---
PT EXPERIENCES MYOCLONUS IN FACE AND LEGS DURING REPOSITIONING AND BED BATH. PT IS RELAXED WHEN NOT STIMULATED.
[2022-08-03 04:55] LABS: BASOPHILS ABSOLUTE AUTO 0.05 K/mm3 (0.00-0.23); BASOPHILS PERCENT AUTO 0 % (0-2); EOSINOPHILS ABSOLUTE AUTO 0.03 K/mm3 (0.00-0.68); EOSINOPHILS PERCENT AUTO 0 % (0-6); Hematocrit 18.7 % (33.0-51.0); Hemoglobin 6.5 g/dL (11.5-16.0); IMMATURE GRAN ABSOLUTE AUTO 1.34 K/mm3 (0.00-0.10); IMMATURE GRAN PERCENT AUTO 4 % (0-1); LYMPHOCYTES ABSOLUTE AUTO 2.31 K/mm3 (0.84-5.20); LYMPHOCYTES PERCENT AUTO 7 % (21-46); MONOCYTES ABSOLUTE AUTO 2.17 K/mm3 (0.16-1.47); MONOCYTES PERCENT AUTO 7 % (4-13); Mean Corpuscular HGB 33.3 pg (26.0-34.0); Mean Corpuscular HGB Conc 34.8 g/dL (31.5-36.5); Mean Corpuscular Volume 96 fL (80-100); NEUTROPHILS ABSOLUTE AUTO 25.94 K/mm3 (1.96-9.15); NEUTROPHILS PERCENT AUTO 81 % (41-73); NRBC ABSOLUTE 0.08 K/mm3 (0.00-0.02); NRBC Auto 0.3 /100 WBC (0.0-0.2); Platelet Count 75 K/mm3 (150-400); RDW Coefficient Variation 22.9 % (11.7-14.2); RDW Standard Deviation 71.9 fL (35.1-46.3); Red Blood Cell Count 1.95 M/mm3 (3.80-5.20); White Blood Cell Count 31.84 K/mm3 (4.00-11.30)
[2022-08-03 04:59] LABS: Mean Platelet Volume 13.1 fL (9.1-12.4)
[2022-08-03 05:11] LABS: International Normalized Ratio 1.71; Prothrombin Time Results 17.3 Sec (9.7-11.5)
[2022-08-03 05:12] LABS: Albumin, Blood 3.2 g/dL (3.4-5.0); Albumin/Globulin Ratio 0.9 (0.8-1.8); Bilirubin, Direct 2.4 mg/dL (0.0-0.3); Bilirubin, Indirect 1.2 mg/dL (0.1-0.7); Bilirubin, Total 3.6 mg/dL (0.1-1.0); Bun/Creatinine Ratio 14.3 (12.0-20.0); Calcium, Blood 9.2 mg/dL (8.5-10.1); Creatinine, Blood 4.2 mg/dL (0.40-1.00); Globulin, Blood 3.6 g/dL (2.2-4.0); Magnesium, Blood 2.1 mg/dL (1.6-2.4); Potassium, Blood 3.3 mmol/L (3.5-5.5); Total Protein, Blood 6.8 g/dL (6.4-8.2)
[2022-08-03 06:01] LABS: BASOPHILS PERCENT MAN 0 % (0-2); EOSINOPHILS PERCENT MAN 0 % (0-6); LYMPHOCYTES ABSOLUTE MAN 1.59 K/mm3 (0.84-5.20); LYMPHOCYTES PERCENT MAN 5 % (21-46); MONOCYTES ABSOLUTE MAN 1.27 K/mm3 (0.16-1.47); MONOCYTES PERCENT MAN 4 % (4-13); NEUTROPHILS ABSOLUTE MAN 28.97 K/mm3 (1.96-9.15); Phosphorus, Blood 3.2 mg/dL (2.5-4.9); SEG NEUTROPHILS PERCENT MAN 91 % (41-73); TOTAL CELLS COUNTED 100
--- NOTE | 2022-08-03 06:30 | NUR ---
SUMMARY: NEURO/PSYCH/MOBILITY: SEDATED ON PROPOFOL 30MCG/KG/MIN. PT EXPERIENCING FACIAL AND EXTREMETY MYOCLONUS WITH REPOSTITIONING AND ORAL CARE. FENTANYL 50MCG GIVEN PRIOR TO FULL BED BATH. PT OCCASIONALLY AGITATED THROUGHOUT SHIFT AND PULLING AT RESTRAINTS. PT WILL PULL AWAY FROM ORAL CARE AND PAINFUL STIMULI. DOES NOT RESPOND TO VERBAL COMMANDS. PT MAXIMUM ASSISTANCE FOR ALL ADL'S. PERRL. RESP: INTUBATED. AC VC 16/410/12/45%. RR 16, SPO2 >92%. WILL DESAT INTO THE 80'S WITH REPOSITIONING. BLOOD TINGED ORAL SECRETIONS SUCTIONED THROUGHOUT SHIFT. ETT 7.5CM 22@[facility]. CARDIAC: CONTINUOUS CARDIAC MONITORING. HR 80'S. SBP 120'S AND STABLE. MAP >65. EDEMA 2+ BLE/BUE. GI: OGT SET TO LIS. 400MLS BLOODY RESIDUAL OUTPUT DURING SHIFT. HYPOACTIVE BOWEL SOUNDS IN ALL 4 QUADRANTS. RECTAL TUBE IN PLACE WITH NO OUTPUT. : CASANOVA CATH PATENT AND DRAINING TO GRAVITY. 25MLS OUTPUT. SKIN: EXCORIATION NOTED ON LEFT BUTTOCK, MEPILEX PLACED. CAM BOOT REMOVED DURING BED BATH. GOOD SKIN INTEGRITY. MEPILEX ON DORSAL ASPECT AND HEELS BILATERALLY. PG MARIBELL PATENT AND INFUSING. PICC LORIE PATENT AND INFUSING.
--- NOTE | 2022-08-03 08:33 | NUR ---
ASSUMED CARE PT IS INTUBATED ON //45% WITH SPO2 >92%. MAP >65. PT HAS PROPOFOL RUNNING AT 30. TPN AT 55ML/HR.
--- NOTE | 2022-08-03 15:28 | NUR ---
Spiritual care visit conducted. Pt's spouse, Wagner, is bedside and is a bit emotional and aggitated. He states that seeing, what appears to be, a body in pain and discomfort is very troubling for him. He states often that he thought she would be better by now and that it seems like she is suffering. He tells me that he feels like he should be strong for her but that he is "emotional today." We talk about the process that she is in, the possible next steps and the difficulties he is having coping. He tells me that he was assigned additional counseling support today and that he is hoping that an additional "doctor" can help him get through this season. I normalize his feelings, listen empathically and provide a calming presence, gentle residential child care counselor and prayer. Pt reponds well and shows signs greater peace. He hugs me and voices appreciation for this dampener's caring support.
--- NOTE | 2022-08-03 17:24 | NUR ---
SHIFT SUMMARY PT IS INTUBATED W/ SETTINGS AT 16/410/8/45% SPO2 >92%; DESATTED DOWN INTO THE 80S WHILE REPOSITIONING. HR IN THE 90'S FOR MOST OF SHIFT THEN CLIMBED INTO THE LOW 100S AFTER SEDATION VACATION. MAP >65. SBP WENT UP AFTER OCTREOTIDE GTT START. PROPFOL RUNNING AT 10MCG, PROTONIX, OCTREOTIDE, AND TPN INFUSING PER ORDER. SEDATION VACATION FOR TWO HOURS, PT FOLLOWED COMMANDS, WIGGLED FINGERS ON LEFT HAND AND OPENS EYES ON COMMAND; NOTED INCREASE IN TREMOROUS MOVEMENTS DURING SEDATION VACATION. ON SPONTANEOUS DURING THIS TIME, PT WAS ON 10/8/45% W/ TV 400-500. PT HAD DIALYSIS TODAY WITH 4L TAKEN OFF. BOTH HEELS ASSESSED; SOME SLIGHT REDNESS, MEPILEX APPLIED TO BOTH HEELS. LEFT BUTTOCKS HAS EXCORIATION W/ BLEEDING, MEPILEX IN PLACE. REDNESS NOTED AROUND RECTAL TUBE. CASANOVA CATHETER DRAINING TO GRAVITY, WITH MINIMAL OUTPUT. SIGNIFICANT EDEMA NOTED IN BLE.
--- NOTE | 2022-08-03 22:28 | NUR ---
ASSUMPTION OF CARE: ASSUMED CARE OF PT AT 1900. PT IS INTUBATED AND SEDATED WITH PROPOFOL RUNNING AT 15 MCG/KG/MIN AND VENT SETTINGS AC/VC 16/410/10/55%. PT IS RESPONDING TO VERBAL STIMULI AND FOLLOWING THE COMMAND TO SQUEEZE THIS RN'S HANDS BILATERLLY; EFFORT IS WEEK. PERRLA BILAERALLY. PT LUNG SOUNDS ARE COARSE IN THE UPPER LOBES AND DIM IN THE BASES; RIGHT LUNG MORE COARSE THAN THE LEFT LUNG. PT O2 LEVELS 90<. HR IN THE 100-110 AND SBP IN THE 140'S. S1/S2 ASCULTATED. HYPOACTIVE BS IN ALL FOUR QUADRANTS; OGT PATENT AND HOOKED UP TO LIS WITH REDDISH-BROWN DRAINAGE PRESENT. RECTAL TUBE IN PLACE AND DRAINING TO GRAVITY WITH GREEN OUTPUT. ALL EXTREMITIES WARM WITH CAP REFILL < 3 SECONDS. PT HAS A OCTROTIDE DRIP INFUSING AT 500 MCG/HR, A PROTONIX DRIP INFUSING AT 10 MLS/HR, AND CPN INFUSING AT 55 MLS/HR. WILL CONTINUE TO MONITOR THROUGHOUT THE SHIFT.
[2022-08-04 03:43] LABS: Hematocrit 20.7 % (33.0-51.0); Mean Corpuscular HGB 31.5 pg (26.0-34.0); Mean Corpuscular HGB Conc 33.8 g/dL (31.5-36.5); Mean Corpuscular Volume 93 fL (80-100); Mean Platelet Volume 12.5 fL (9.1-12.4); NRBC Auto 0.6 /100 WBC (0.0-0.2); Platelet Count 100 K/mm3 (150-400); RDW Coefficient Variation 24.2 % (11.7-14.2); RDW Standard Deviation 74.1 fL (35.1-46.3); Red Blood Cell Count 2.22 M/mm3 (3.80-5.20); White Blood Cell Count 32.04 K/mm3 (4.00-11.30)
[2022-08-04 03:59] LABS: Albumin, Blood 3.4 g/dL (3.4-5.0); Albumin/Globulin Ratio 0.9 (0.8-1.8); Bilirubin, Total 5.1 mg/dL (0.1-1.0); Bun/Creatinine Ratio 14.6 (12.0-20.0); Calcium, Blood 9.3 mg/dL (8.5-10.1); Creatinine, Blood 2.67 mg/dL (0.40-1.00); Globulin, Blood 3.8 g/dL (2.2-4.0); Magnesium, Blood 2.2 mg/dL (1.6-2.4); Phosphorus, Blood 2.3 mg/dL (2.5-4.9); Potassium, Blood 3.5 mmol/L (3.5-5.5); Total Protein, Blood 7.2 g/dL (6.4-8.2)
[2022-08-04 04:32] LABS: BAND PERCENT MAN 1 % (0-8); BASOPHILS PERCENT MAN 0 % (0-2); EOSINOPHILS PERCENT MAN 0 % (0-6); LYMPHOCYTES PERCENT MAN 10 % (21-46); METAMYELOCYTE ABSOLUTE MAN 0.64 K/mm3 (0.00-0.00); METAMYELOCYTE PERCENT MAN 2 % (0-0); MONOCYTES ABSOLUTE MAN 0.96 K/mm3 (0.16-1.47); MONOCYTES PERCENT MAN 3 % (4-13); MYELOCYTE ABSOLUTE MAN 0.32 K/mm3 (0.00-0.00); MYELOCYTE PERCENT MAN 1 % (0-0); NEUTROPHILS ABSOLUTE MAN 26.91 K/mm3 (1.96-9.15); SEG NEUTROPHILS PERCENT MAN 83 % (41-73); TOTAL CELLS COUNTED 100
--- NOTE | 2022-08-04 06:26 | NUR ---
SHIFT SUMMARY: NO ACUTE CHANGES THIS SHIFT. PT REMAINS INTUBATED WITH VENT SETTINGS SPONTANEOUS, PS 8, PEEP 5, FI02 40%, AND TIDAL VOLUMES 600-800; WHEN PT IS AGGITATED/RESTLESS TIDAL VOLUMES INCREASE TO [id number]. PT IS RESPONDING TO VERBAL/PAIN STIMULI BUT NOT FOLLOWING COMMANDS. PT LUNG SOUNDS REMAIN CLEAR T/O AND DIM BASES; O2 LEVELS 98< AND RR 16-18. PT SBP HAS BEEN UP AND DOWN THROUGHOUT THE NIGHT VARRYING FROM 150'S-190'S; PT MEDICATED AROUND THE CLOCK WITH LOBETOLOL AND HYDRALAZINE. PT RESPONDES TO MEDICATIONS BUT EFFECTS APPEAR TO WEAR OFF QUICKLY. PT RECIEVED FENTANYL Q2HRS TONIGHT TO HELP WITH RESTLESSNESS/VENTILATOR COMPLIANCE; PT RESPONDS WELL BUT EFFECTS WEAR OFF QUICKLY. PT RECIEVED COMPLETE BED BATH THIS SHIFT AND A COMPLETE LINEN CHANGE. WILL CONTINUE TO MONITOR UNTIL ONCOMING NURSE ARRIVES.
--- NOTE | 2022-08-04 06:38 | NUR ---
SHIFT SUMMARY: NO ACUTE CHANGES THIS SHIFT. PT REMAINS INTUBATED AND SEDATED WITH VENT SETTINGS AC/VC 16/410/10/65% AND PROPOFOL RUNNING AT 15 MCG/KG/MIN. PT IS RESPONDING TO VERBAL/PAIN STIMULI, AND FOLLOWING COMMANDS TO SQUEEZE HANDS. PT HAS CLEAR LUNG SOUNDS AND DIM BASES. THERE IS BLOOD TINGED SPUTUM NOTED IN THE SUCTIONING. O2 LEVELS MAINTAINING 90<. PT WAS HYPERTENSIVE THROUGHOUT THE SHIFT WITH SBP MAINTAINING 140'S WITH RATE IN THE 100'S. PT HAS 250 OUTPUT FROM THE OGT THAT IS REDDISH-BROWN IN COLOR. PT HAD MINIMAL URINE OUTPUT THIS SHIFT. DRESSING CHANGE DONE ON THE PERMA CATH IN THE R. FEMORAL; SITE HAD SIGNIFICANT LEAKING AND CONTINUED TO LEAK THROUGHOUT THE DRESSING CHANGE. NEW BANDAGE HAD A SMALL AMOUNT OF SATURATION AFTER COMPLETING THE DRESSING CHANGE; WILL MONITOR CLOSELY. PT HAD TREMORS IN THE FACE AND UPPER BODY THROUGHOUT THE SHIFT. PT RECTAL TUBE HAD SMALL OUTPUT THIS SHIFT. WILL CONTINUE TO MONITOR UNTIL ONCOMING NURSE ARRIVES.
[2022-08-04 08:40] LABS: International Normalized Ratio 1.52; Prothrombin Time Results 15.5 Sec (9.7-11.5)
--- NOTE | 2022-08-04 08:47 | NUR ---
ASSUMED CARE BEDSIDE REPORT FROM HOLLI/MAEGAN ESCALANTE. PT INTUBATED AND SEDATED. VENT SETTINGS AC/VC 16/410/10/75%. LUNGS DIM IN BASES. SMALL AMOUNT OF BLOODY SECRETIONS FROM ETT. O2 SATS LOW 90'S. PROPOFOL GTT INFUSING FOR SEDATION, INCREASED D/T TO TREMOROUS MOVEMENT TO FACE. DOES NOT FOLLOW COMMANDS. GRIMACES c CARE. SR ON MONITOR, RATE 90'S, BP STABLE. SKIN PALE, JAUNDICE TO SCELARA, 2+ EDEMA TO BUE, 3+ TO RLE. ABD FIRM, DISTENDED, HYPOACTIVE BT. OGT c MAROON EMESIS OUT, CLAMPED AFTER MEDS, WILL USE LIS. RECTAL TUBE IN PLACE c GREEN LIQUID STOOL OUT. CASANOVA PATENT, DRAINING CLEAR YELLOW URINE TO GRAVITY. OCTREOTIDE, PROTONIX, TPN INFUSING. PICC TO LUE, PG TO RUE, DRESSINGS C/D/I. TRIALYSIS CATH TO RIGHT GROIN, OOZING BLOOD, DRESSING SATURATED. WILL DISCUSS c SALESFORCE TRAINER. PLAN FOR DIALYSIS THIS SHIFT. WILL CONTINUE TO MONITOR.
--- NOTE | 2022-08-04 17:36 | NUR ---
SHIFT SUMMARY PT REMAINS INTUBATED AND SEDATED. VENT SETTINGS AC/VC 16/410/10/70%. LUNGS DIM IN BASES. SMALL RED SECRETIONS FROM ETT. PROPOFOL FOR SEDATION. WHEN SEDATION LIGHTENED, PT OPENS EYES TO VERBAL STIMULI, TREMORS INCREASE. DOES NOT FOLLOW COMMANDS. NO SBT D/T INCREASED O2 DEMANDS. NSR, RATE 90'S. BP STABLE. DIALYSIS COMPLETE, 4L OFF. TOLERATED WELL. DR URIARTE RESECURED CATH IN RIGHT GROIN D/T LEAKING. JESUS DRESSING IN PLACE. CHG INTACT. TUBE FEEDS STARTED, TRICKLE FEED. 200 ML GREEN/BROWN EMESIS OUT OGT THIS SHIFT. CLINIMIX AND LIPIDS STARTED. CASANOVA PATENT, DRAINED 25 ML CLEAR YELLOW URINE TO GRAVITY. RECTAL TUBE 50 ML GREEN STOOL OUT. WILL CONTINUE TO MONITOR UNTIL REPORT TO ONCOMING NURSE.
--- NOTE | 2022-08-04 23:14 | NUR ---
ASSUMPTION OF CARE: BEDSIDE REPORT RECIEVED FROM MENDY ESCALANTE. ASSUMED CARE OF PT AT 1900. PT IS INTUBATED AND SEDATED WITH PROPOFOL RUNNING 30 MCG/KG/MIN AND VENT SETTINGS AC/VC 16/410/10/70%. PT IS RESPONSE TO PAIN STIMULI AT THIS TIME AND IS NOT FOLLOWING COMMANDS. PERRLA BILATERALLY. LUNG SOUNDS ARE SLIGHTLY COARSE T/O AND DIM BASES; O2 LEVELS 90<. S1/S2 ASCULTATED WITH HR IN THE 90'S AND SBP IN THE 130'S; CONTINUOUS EXTRUSION PRESS ADJUSTER IN PLACE. PT HAS HYPOACTIVE BS IN ALL FOUR QUADRANTS; ABD IS MILDLY DISTENDED AND FIRM, PT HAS GRIMANCING WHEN RLQ PALPATED. PT HAS OGT PATENT AND INFUSING VHP AT 10 MLS/HR; 250 RISIDUALS. TEMP CASANOVA IN PLACE AND DRAINING TO GRAVITY; DRAGAN URINE. RECTAL TUBE IN PLACE WITH GREEN COLORED OUTPUT. 3+ PITTING EDEMA BLE, 2+ PITTING EDEMA BUE, AND DEPENDENT EDEMA ON BACKSIDE. WARM EXTREMITIES WITH PPP X 4; CAP REFIL REMAINS < 3 SECONDS. PT HAS OCTREOTIDE INFUSING AT 5 MLS/HR, PROTONIX INFUSING AT 10 MLS/HR, AND CLINIMIX AT 10 MLS/HR. PERMA CATH IN R. FEMORAL SITE LEAKING UNDERNEATH DRESSING; PLAN TO REPLACE DRESSING THIS SHIFT. WILL CONTINUE TO MONITOR THROUGHOUT THE SHIFT.
[2022-08-05 00:09] LABS: HBSAG SCREEN Negative (Negative); HCV AB 0.2 (0.0-0.9); HEP A AB, IGM Negative (Negative); HEP B CORE AB, IGM Negative (Negative)
[2022-08-05 04:53] LABS: Base Excess Venous 4.7 mmol/L; Bicarbonate Venous 28.3 mmol/L (24.0-30.0); PO2 Venous 67.9 mmHg (38-42); pH Blood Venous 7.46 (7.34-7.37)
[2022-08-05 04:57] LABS: BASOPHILS ABSOLUTE AUTO 0.05 K/mm3 (0.00-0.23); BASOPHILS PERCENT AUTO 0 % (0-2); EOSINOPHILS PERCENT AUTO 0 % (0-6); IMMATURE GRAN ABSOLUTE AUTO 0.96 K/mm3 (0.00-0.10); IMMATURE GRAN PERCENT AUTO 4 % (0-1); LYMPHOCYTES ABSOLUTE AUTO 2.45 K/mm3 (0.84-5.20); LYMPHOCYTES PERCENT AUTO 9 % (21-46); MONOCYTES ABSOLUTE AUTO 1.49 K/mm3 (0.16-1.47); MONOCYTES PERCENT AUTO 6 % (4-13); Mean Corpuscular HGB 33.7 pg (26.0-34.0); Mean Corpuscular HGB Conc 34.7 g/dL (31.5-36.5); Mean Corpuscular Volume 97 fL (80-100); NEUTROPHILS ABSOLUTE AUTO 21.47 K/mm3 (1.96-9.15); NEUTROPHILS PERCENT AUTO 81 % (41-73); NRBC Auto 0.4 /100 WBC (0.0-0.2); RDW Coefficient Variation 24.3 % (11.7-14.2); RDW Standard Deviation 79.4 fL (35.1-46.3); Red Blood Cell Count 1.78 M/mm3 (3.80-5.20); White Blood Cell Count 26.42 K/mm3 (4.00-11.30)
[2022-08-05 05:00] LABS: Platelet Count 66 K/mm3 (150-400)
[2022-08-05 05:01] LABS: Hematocrit 17.3 % (33.0-51.0)
[2022-08-05 05:12] LABS: International Normalized Ratio 1.36
[2022-08-05 05:21] LABS: Magnesium, Blood 2.1 mg/dL (1.6-2.4)
[2022-08-05 05:22] LABS: Albumin, Blood 3.4 g/dL (3.4-5.0); Bilirubin, Total 5.1 mg/dL (0.1-1.0); Bun/Creatinine Ratio 16.9 (12.0-20.0); Calcium, Blood 9.2 mg/dL (8.5-10.1); Creatinine, Blood 2.36 mg/dL (0.40-1.00); Globulin, Blood 3.4 g/dL (2.2-4.0); Potassium, Blood 3.6 mmol/L (3.5-5.5); Total Protein, Blood 6.8 g/dL (6.4-8.2)
--- NOTE | 2022-08-05 05:35 | NUR ---
CALL PLACED TO DR. KRISHNAN IN REGARDS TO CRITICAL HCT OF 17.3 AND HBG AT 6.0. INFORMED PROVIDER ABOUT PT RECIEVING DIALYSIS OVER THE LAST COUPLE OF DAYS AND AGAIN THIS MORNING. PROVIDER STATED THAT WE WOULD WAIT TO SEE IF THE PT COULD BE TRANSFUSED THIS MORNING WIHT SCHEDULED DIALYSIS.
--- NOTE | 2022-08-05 06:31 | NUR ---
SHIFT SUMMARY: NO ACUTE CHANGES THIS SHIFT. PT REMAINS INTUBATED AND SEDATED WITH PROPOFOL RUNNING AT MCG/KG/MIN AND VENT SETTINGS AC/VC 16/410/10/70%. PT REMAINS RESPONSIVE TO PAIN STIMULI AND IS NOT FOLLOWING COMMANDS. LUNG SOUNDS ARE COARSE THROUGHOUT AND DIM BASES; O2 LEVELS MAINTAINING 90<. PT HAS BLOODY ORAL SECRETIONS AND BLOOD-TINGED SECRETIONS FROM THE ET TUBE. HR IN THE 80'S AND SBP IN THE 130'S. PT URINE OUTPUT 25 MLS; RECTAL TUBE OUTPUT 400 MLS. PT HAD A CRITICAL HCT OF 17.3 AND HGB IS AT 6; DR KRISHNAN NOTIFIED AND NO NEW ORDERS AT THIS TIME, PROVIDER WILL WAIT AND SEE IF PT CAN RECIEVE TRANSFUSION DURING SCHEDULED DIALYSIS. OCTREOTIDE IS INFUSING AT 25 MLS/HR, PROTONIX INFUSING AT 10 MLS/HR, AND CLINIMIX INFUSING AT 50 MLS/HR. PT RECIEVED A CHG BATH AND COMPLETE LINEN CHANGE THIS SHIFT. WILL CONTINUE TO MONITOR UNTIL ONCOMING RN ARRIVES.
--- NOTE | 2022-08-05 12:22 | NUR ---
UPDATE PT JUST FINISHED DIALYSIS TREATMENT THIS AM. RIGHT GROIN DIALYSIS CATH SITE LEAKING BLOOD. DRESSING CHANGED BY VERSE WRITER AND SAND BAG WEIGHT PLACED AT SITE. DAY SURGERY TEAM AND DR GUTIERREZ HERE TO SET UP FOR EGD AT THIS TIME. PROPOFOL INCREASED TO 50 MCG/KG/MIN. VITAL SIGNS STABLE. WILL CONTINUE TO MONITOR.
--- NOTE | 2022-08-05 13:08 | NUR ---
08/05/22 1305 Segun Keita History, Chart, Medications and Allergies reviewed before start of procedure. MONITOR INTACT WITH CONTINUOUS PULSE OXIMETRY AND INTERMITTENT BP. Bite Block Placed. PATIENT VENTILATED ON PROPOFOL SEDATION PATIENT ASSESSMENT COORDINATOR MONITORED SEDATION.
--- NOTE | 2022-08-05 14:00 | NUR ---
EGD/PLAN OF CARE EGD DONE AT BEDSIDE. PT SEDATED WITH PROPOFOL UP TO 80 MCG/KG/MIN, 100 MCG FENTANYL, AND 2 MG VERSED. PT CLAMMPED TEETH DOWN ON BITE BLOCK REQUIRING RT ASSISTANCE WITH DAY SURGERY RN'S TO GET THE SCOPE THROUGH AND EGD DONE. AFTER EGD COMPLETED PROPOFOL TITRATED BACK DOWN TO 40 MCG/KG/MIN. PT SPOUSE AT BEDSIDE AFTER PROCEDURE. DR MAURO TO BEDSIDE AT THIS TIME TO HAVE EXTENSIVE DISCUSSION ABOUT PLAN OF CARE AND OPTIONS OF TRACH AND PEG IN THE COMING DAYS. PT SPOUSE IS AGREEABLE AND DR MAURO NOTIFIED DR CERRATO FOR POTENTIAL TRACH PLACEMENT THIS WEEKEND. TUBE FEEDINGS RESUMED PER DR MAURO. WILL CONTINUE TO MONITOR.
--- NOTE | 2022-08-05 18:02 | NUR ---
SHIFT SUMMARY PT REMAINS INTUBATED AND SEDATED. PT GRIMMACES TO NOXIOUS STIMULI AND BITES DOWN ON SUCTION SWAB WITH ORAL CARE. PT CONTINUES WITH BLOODY ORAL SECRETIONS AND BLOODY ETT SECRETIONS. PICC TO LORIE, AND PG TO MARIBELL REMAIN C/D/I. TRIALYSIS CATH TO RIGHT GROIN SITE CONTINUES TO OOZE BLOOD DESPITE MULTIPLE DRESSING CHANGES AND MANUAL PRESSURE. SAND BAG WEIGHT REMAINS AT SITE. EGD DONE THIS SHIFT. OGT REPLACED AND TUBE FEEDS RESTARTED THIS AFTERNOON PER DR MAURO. PROPOFOL INFUSING AT 40 MCG/KG/MIN. PROTONIX AND STANDOSTATIN GTT'S DISCONTINUED AFTER EGD. CASANOVA REMAINS IN PLACE WITH SCANT DARK YELLOW URINE OUTPUT THIS SHIFT. RECTAL TUBE REMAINS IN PLACE WITH LIQUID BLACK/GREEN OUTPUT NOTED. SBW RESTRAINTS REMAIN IN PLACE. VENT SETTINGS AC 16, TV 410, PEEP 14, FIO2 60%. VSS. WILL CONTINUE TO MONITOR AND REPORT OFF TO ONCOMING RN.
--- NOTE | 2022-08-05 19:15 | NUR ---
ASSUMED CARE OF PT @0700. PT SEDATED AND INTUBATED. PROPOFOL 40MCG/KG/MIN. ETT 7.5CM, 22CM @[facility]. VC 16/410/14/60%. VITAL HP 20MLS/HR. CASANOVA CATH DRAINING TO GRAVITY. RECTAL TUBE DRAINING TO GRAVITY. PICC LINE LORIE PATENT. PG MARIBELL PATENT. DIALYSIS CATH IN RIGHT GROIN OOZING BLOOD. BANDAGE AND WEIGHT IN PLACE.
--- NOTE | 2022-08-06 02:22 | NUR ---
DIALYSIS CATH SITE OOZING THROUGH BANDAGE. STERILE DRESSING CHANGE. SAND BAG WT APPLIED.
[2022-08-06 05:00] LABS: Hematocrit 18.4 % (33.0-51.0); Hemoglobin 6.3 g/dL (11.5-16.0); Mean Corpuscular HGB 32.1 pg (26.0-34.0); Mean Corpuscular HGB Conc 34.2 g/dL (31.5-36.5); Mean Corpuscular Volume 94 fL (80-100); NRBC ABSOLUTE 0.07 K/mm3 (0.00-0.02); NRBC Auto 0.3 /100 WBC (0.0-0.2); Platelet Count 84 K/mm3 (150-400); RDW Coefficient Variation 22.5 % (11.7-14.2); RDW Standard Deviation 66.6 fL (35.1-46.3); Red Blood Cell Count 1.96 M/mm3 (3.80-5.20); White Blood Cell Count 27.23 K/mm3 (4.00-11.30)
[2022-08-06 05:17] LABS: Albumin, Blood 3.6 g/dL (3.4-5.0); Bilirubin, Total 6.7 mg/dL (0.1-1.0); Bun/Creatinine Ratio 19.5 (12.0-20.0); Calcium, Blood 9.3 mg/dL (8.5-10.1); Creatinine, Blood 2.15 mg/dL (0.40-1.00); Globulin, Blood 3.6 g/dL (2.2-4.0); Magnesium, Blood 2.4 mg/dL (1.6-2.4); Phosphorus, Blood 3.6 mg/dL (2.5-4.9); Potassium, Blood 3.3 mmol/L (3.5-5.5); Total Protein, Blood 7.2 g/dL (6.4-8.2)
[2022-08-06 06:03] LABS: BASOPHILS PERCENT MAN 0 % (0-2); EOSINOPHILS PERCENT MAN 0 % (0-6); LYMPHOCYTES PERCENT MAN 7 % (21-46); METAMYELOCYTE ABSOLUTE MAN 0.27 K/mm3 (0.00-0.00); METAMYELOCYTE PERCENT MAN 1 % (0-0); MONOCYTES ABSOLUTE MAN 2.99 K/mm3 (0.16-1.47); MONOCYTES PERCENT MAN 11 % (4-13); MYELOCYTE ABSOLUTE MAN 0.27 K/mm3 (0.00-0.00); MYELOCYTE PERCENT MAN 1 % (0-0); NEUTROPHILS ABSOLUTE MAN 21.78 K/mm3 (1.96-9.15); SEG NEUTROPHILS PERCENT MAN 80 % (41-73); TOTAL CELLS COUNTED 100
--- NOTE | 2022-08-06 06:17 | NUR ---
SUMMARY: NEURO/PSYCH/MOBILITY: SEDATED ON PROPOFOL 40MCG/KG/MIN. PT GRIMACES AND BITES DOWN DURING ORAL CARE. REACHES FOR ETT WHEN RESTRAINTS ARE REMOVED FOR REPOSITIONING. MILD FACIAL MYOCLONUS WHEN STIMULATED. SPONTANEOUS EYE OPENING. DOES NOT FOLLOW COMMANDS OR RESPOND TO VERBAL STIMULI. PT MAXIMUM ASSISTANCE FOR ALL ADL'S. PERRL. RESP: INTUBATED AC VC 16/410/14/60%. RR 16, SPO2 >92%. MINIMAL ORAL SECRETIONS THIS SHIFT. ETT 7.5CM 22CM@[facility]. CARDIAC: CONTINUOUS CARDIAC MONITORING. HR 90'S. SBP 110-120 AND STABLE. MAP >65. EDEMA 2+ BLE/BLUE. SHORT RUN OF VTACH @0630. STRIP PRINTED AND IN CHART. GI: VHP INFUSING AT GOAL RATE 10MLS/HR. NO RESIDUALS THROUGHTOUT SHIFT.ACTIVE BOWEL SOUNDS IN ALL 4 QUADRANTS. RECTAL TUBE INPLACE WITH NO OUTPUT IN BAG. DURING LAST TURN LG AMOUNTS OF DARK BROWN LIQUID STOOLS HAD LEAKED AROUND TUBE. : CASANOVA CATH PATENT AND DRAINING TO GRAVITY. 10MLS OUTPUT THROUGH SHIFT. SKIN: CAM BOOT REMOVED AND SKIN INTEGRITY CHECKED. MILD REDNESS ON DORSAL ASPECT. MEPILEX APPLIED WELL BILATERAL HEELS. TEMP HD CATH IN RIGHT GROIN OOZING BLOOD. BANDAGE SOAKED THROUGH AND CHANGED TWICE. PG MARIBELL PATENT W/SALINE LOCK. PICC LORIE. PATENT AND INFUSING.
--- NOTE | 2022-08-06 08:00 | NUR ---
ASSUMED CARE PT INTUBATED AND SEDATED. AC/VC 16/410/14/60%. LUNG SOUNDS CLEAR W/ COARSE BASES. SCANT AMOUNT OF BLOODY SECRETIONS. PROPOFOL AT 40MCG/KG/MIN. SR 90's. SBP 140's. VSS. ABDOMEN DISTENDED AND FIRM. HYPERACTIVE BT. TF AT 10ML/HR. SEDATION VACATION FROM [id number]. PT TURNS HEAD TOWARDS SOUND AND OPENS EYES TO NAME. DOES NOT TRACK OR FOLLOW COMMANDS. MUSCLE CONTRACTIONS INCREASED T/O BODY WITH NO SEDATION. GRIMACES W/ CARE. CLENCHES JAW AND BITES DOWN W/ ORAL CARE. FACIAL EDEMA NOTED IN UPPER LIP. RT LOOSENED LESLEE AND RED INDENT NOTED. HEMODIALYSIS ONGOING. CASANOVA PATENT AND DRAINING TO GRAVITY. MINIMAL DRAGAN/YELLOW URINE. RECTAL TUBE IN PLACE.
[2022-08-06 09:41] LABS: International Normalized Ratio 1.36
--- NOTE | 2022-08-06 13:18 | NUR ---
CHANGE in code status to DNR per 's request. I complted a Case conference with Dr Nielsen and RN for update prior to phone call to , Wagner to discuss middle or intermediate school principal goals of care, code status and advanced care planning. Dr and spoke at length yesterday also. states that if pt continues to worsen and is without a heart beat that she would not want us to do CPR. He is trying to remain hopeful that she will recover enough to "be who she used to be", walk, talk, laugh and enjoy life again. He also stated that he wanted to continue to try for trach for longer term respiratory support but that "if her body just wasn't up to it or wasn't going to get better" he would not want to try for trach and peg tube. We discussed dialysis and he is agreeable to that under similar circumstances of pt being able to function and communicate. We agreed that if pt became able to process, communicate and make medical decisions, she would be the one to make those calls on whether to continue or not. discussed his own alcoholism and how this has "scared the shit out of him". He states he is working with his Drs and getting medications to help him not drink, permanently.
--- NOTE | 2022-08-06 18:36 | NUR ---
SHIFT SUMMARY NO ACUTE EVENTS T/O DAY. VSS. REMAINS INTUBATED AND VENTED. CURRENT VENT SETTINGS 16/410/14/40%. DIALYSIS CATH LEAKING T/O DAY, SUBSIDED W/ DRSG CHANGE AND SAND BAG PLACEMENT. PROPOFOL AT 40MCG/KG/MIN. TF 10ML/HR. CASANOVA PATENT AND DRAINING. 27ML OUTPUT. RECTAL TUBE IN PLACE. OUTPUT 425.
--- NOTE | 2022-08-06 19:15 | NUR ---
ASSUMPTION OF CARE PT INTUBATED AND SEDATED. SHE IS RECEIVING PROPOFOL 40MCG/KG/MIN. VENT SETTINGS AC/VC+ 16/410/14/40%. LUNGS SOUNDS ARE CLEAR IN BILAT UPPER LOBES AND COARSE IN THE BASES. PT OPENS EYES SPONTANEOUSLY, DOES NOT TRACK MOVEMENTS. FACIAL GRIMACING AND CLENCHED JAW WITH NOXIOUS STIMULI. TUBE FEEDING INFUSING AT 10ML/HR. ZERO RESIDUALS. ABDOMEN DISTENDED AND FIRM WITH HYPOACTIVE BOWEL TONES. CASANOVA PATENT AND DRAINING SMALL AMOUNT OF DRAGAN COLORED URINE IN TUBING. DIALYSIS CATH DRESSING CHANGED DURING DAY SHIFT BY POSTING MACHINE OPERATOR. DRESSING C/D/I WITH SAND BAG IN PLACE FOR PRESSURE. VSS AT THIS TIME. SEE SHIFT ASSESSMENT.
--- NOTE | 2022-08-06 21:00 | NUR ---
SEDATION VACATION PROPOFOL ON STANDBY FOR APPROX 30MIN. PT CONTINUES TO OPEN EYES SPONTANEOUSLY. SHE DOES NOT TRACK MOVEMENTS OR TURN TOWARD NOISE. WHEN APPLYING LACRILUBE GEL PT CLENCHES EYES SHUT. JAW CLENCHES DURING ORAL CARE. WITH RESTRAINTS OFF, UPPER EXTREMITIES CONTRACTED WITH INTERNAL ROTATION AND ARMS BEGIN TO MOVE UP CHEST. PT BEGINS TO COUGH, RR INCREASING. HR INCREASING TO 90S. MYOCLINIC MOVEMENTS BECOME CONSISTENT. SEDATION RESTARTED.
[2022-08-07 04:30] LABS: Hematocrit 21.1 % (33.0-51.0); Hemoglobin 7.2 g/dL (11.5-16.0); Mean Corpuscular HGB Conc 34.1 g/dL (31.5-36.5); Mean Corpuscular Volume 94 fL (80-100); Mean Platelet Volume 12.7 fL (9.1-12.4); NRBC ABSOLUTE 0.03 K/mm3 (0.00-0.02); NRBC Auto 0.1 /100 WBC (0.0-0.2); Platelet Count 109 K/mm3 (150-400); RDW Coefficient Variation 22.4 % (11.7-14.2); RDW Standard Deviation 63.3 fL (35.1-46.3); Red Blood Cell Count 2.25 M/mm3 (3.80-5.20); White Blood Cell Count 32.83 K/mm3 (4.00-11.30)
[2022-08-07 04:58] LABS: Albumin, Blood 3.4 g/dL (3.4-5.0); Anion Gap 10 mmol/L (6-16); Blood Urea Nitrogen 35 mg/dL (8-24); Bun/Creatinine Ratio 17.1 (12.0-20.0); CO2, Blood 28 mmol/L (21-32); Calcium, Blood 9.4 mg/dL (8.5-10.1); Chloride, Blood 99 mmol/L (98-108); Creatinine, Blood 2.05 mg/dL (0.40-1.00); Glomerular Filtration Rate 29 (60-); Glucose, Blood 106 mg/dL (70-99); Magnesium, Blood 2.1 mg/dL (1.6-2.4); Phosphorus, Blood 3.3 mg/dL (2.5-4.9); Potassium, Blood 3.3 mmol/L (3.5-5.5); Sodium, Blood 137 mmol/L (136-145)
[2022-08-07 05:45] LABS: BASOPHILS PERCENT MAN 0 % (0-2); EOSINOPHILS ABSOLUTE MAN 0.65 K/mm3 (0.00-0.68); EOSINOPHILS PERCENT MAN 2 % (0-6); LYMPHOCYTES ABSOLUTE MAN 4.26 K/mm3 (0.84-5.20); LYMPHOCYTES PERCENT MAN 13 % (21-46); METAMYELOCYTE ABSOLUTE MAN 0.32 K/mm3 (0.00-0.00); METAMYELOCYTE PERCENT MAN 1 % (0-0); MONOCYTES ABSOLUTE MAN 2.29 K/mm3 (0.16-1.47); MONOCYTES PERCENT MAN 7 % (4-13); MYELOCYTE ABSOLUTE MAN 0.65 K/mm3 (0.00-0.00); MYELOCYTE PERCENT MAN 2 % (0-0); NEUTROPHILS ABSOLUTE MAN 24.62 K/mm3 (1.96-9.15); SEG NEUTROPHILS PERCENT MAN 75 % (41-73); TOTAL CELLS COUNTED 100
--- NOTE | 2022-08-07 06:28 | NUR ---
SHIFT SUMMARY PT REMAINS INTUBATED WITH VENT SETTINGS AC/VC+ 16/410/14/40%. SHE IS RECEIVING PROPOFOL 40MCG/KG/MIN. SHE CONTINUES TO OPEN EYES SPONTANEOUSLY BUT DOES NOT TRACK MOVEMENTS. PT MAKES SMALL MOVEMENTS WITH UPPER EXTREMITIES, HANDS CLENCHED. FACIAL GRIMACING WITH NOXIOUS STIMULI. COUGH/GAG INTACT. COMPLIANT WITH VENT. LUNGS CLEAR THROUGHOUT. SMALL AMOUNT OF RED SECRETIONS IN ETT. VHP INFUSING AT 10ML/HR. ZERO RESIDUALS THROUGHOUT SHIFT. ABDOMEN DISTENDED AND FIRM, BOWEL TONES ACTIVE. RECTAL TUBE IN PLACE DRAINING BROWN/GREEN LIQUID STOOL. SHIFT OUTPUT OF 100ML. PT OLIGURIC WITH 35ML DRAGAN URINE OUTPUT. WEIGHT REMAINS ON DIALYSIS CATH. SMALL AMOUNT OF BLEEDING AROUND DRESSING. VSS THROUGHOUT SHIFT. WILL REPORT TO ONCOMING RN.
--- NOTE | 2022-08-07 08:00 | NUR ---
ASSUMED CARE ASSUMED CARE AT 0700. PT INTUBATED AND SEDATED. VENT SETTINGS 16/140/14/40%. PROPOFOL AT 40MCG/KG/MIN. LUNG SOUDS CLEAR WITH COARSE BASES. MINIMAL AMOUNT OF BLOODY WHITE SECRETIONS. SR 90's. SBP 100's. ABD DISTENDED. TF INFUSING 10ML/HR. PROPOFOL OFF AT 0830 FOR SEDATION VACATION. PT MINIMALLY TURNS HEAD TO SOUND AND WILL SPONTANEOUSLY OPEN EYES. MUSCLE CONTRACTIONS T/O BODY. DECREASED FROM YESTERDAYS SEDATION VACATION. CLENCHES JAW AND TURNS HEAD WILL ORAL CARE. CASANOVA PATENT AND DRAINING TO GRAVITY. RECTAL TUBE IN PLACE.
--- NOTE | 2022-08-07 18:07 | NUR ---
SHIFT SUMMARY PT REMAINS INTUBATED. VSS. VENT SETTINGS 16/410/12/40%. PROPOFOL OFF SINCE AM. NO S/S OF PAIN OR AGITATION. NO NEURO CHANGES SINCE INITIAL. DOES NOT TRACK, OR FOLLOW DIRECTIONS. RESPONDS TO NOXIOUS STIMULI. TF INFUSING AT 10ML/HR. COPIOUS AMOUNTS OF ORAL SECRETIONS. MINIMAL FROM ETT. CASANOVA PATENT AND DRAINING TO GRAVITY. 80ML OUTPUT T/O SHIFT. RECTAL TUBE IN PLACE.
--- NOTE | 2022-08-07 19:15 | NUR ---
ASSUMPTION OF CARE PT REMAINS INTUBATED WITH VENT SETTINGS AC/VC+ 16/410/10/40%. NO SEDATION SINCE AM. EYES OPEN SPONTANEOUSLY, OCCASIONALLY TRACKS MOVEMENTS BUT IS INCONSISTENT. BILAT HANDS REFLEX TO SQUEEZE HANDS BUT DOES NOT FOLLOW ANY COMMANDS. OCCASIONAL MYOCLONIC MOVEMENTS BUT DECREASED SINCE YESTERDAY. LUNGS CLEAR THROUGHOUT, COMPLIANT WITH VENT. VHP INFUSING AT 10ML/HR. RESIDUALS 5ML. BOWEL TONES ACTIVE. RECTAL TUBE REMAINS IN PLACE. PT OLIGURIC WITH SMALL AMOUNT OF DRAGAN URINE IN TUBING. CAM BOOT REMAINS ON L LEG. VSS. SEE SHIFT ASSESSMENT.
--- NOTE | 2022-08-08 01:30 | NUR ---
UPDATE/BLEEDING/DIALYSIS CATH RECTAL TUBE DRAINING DARK AND BRIGHT RED BLOOD WITH CLOTS. VISIBLE LINE IN COLLECTION BAG SHOWING 200ML BROWN STOOL AND APPROX 500ML RED DRAINAGE. PT HAS MULTIPLE LARGE BLOOD CLOTS THAT WERE EXPELLED AROUND THE RECTAL TUBE. WHILE CLEANING AREA, THIN BRIGHT RED BLOOD BEGINS TO DRAIN AROUND RECTAL TUBE. NEW DRAINAGE BAG IN PLACE WITH ADDITIONAL 300ML BLOOD WITH CLOTS. H&H DRAWN. DR KRISHNAN NOTIFIED. ORDERS RECEIVED: INCREASE BID PROTONIX DOSE, GIVE ADDITIONAL PROTONIX DOSE, TRANSFUSE 2 UNITS PRBCS AND RECHECK H&H AFTER INFUSION. IF REPEAT H&H <7.0, TRANSFUSE ADDITIONAL 1 UNIT PRBCS. NO RED ETT SECRETIONS, OGT RESIDUALS 5ML FORMULA, NO RED URINARY DRAINAGE. VSS. DIALYSIS CATH DRESSING PLACED BY INVESTIGATOR FRAUD 08/06 DUE TO CONTINUOUS LEAKING. DRESSING PULLED BACK FOR ASSESSMENT. STERILE 4X4S SATURATED WITH YELLOW TINGED FLUID. SKIN BREAKDOWN IN SKIN FOLD, AREA YELLOW AND PURULENT. AREA CLEANSED, CALCIUM ALGINATE AND CLEAR DRESSING IN PLACE.
[2022-08-08 02:16] LABS: Hematocrit 18.3 % (33.0-51.0); Hemoglobin 6.2 g/dL (11.5-16.0)
[2022-08-08 03:41] LABS: Hemoglobin 5.8 g/dL (11.5-16.0)
[2022-08-08 03:42] LABS: Hematocrit 17.4 % (33.0-51.0)
[2022-08-08 03:49] LABS: Anion Gap 13 mmol/L (6-16); Blood Urea Nitrogen 48 mg/dL (8-24); CO2, Blood 24 mmol/L (21-32); Calcium, Blood 9.1 mg/dL (8.5-10.1); Chloride, Blood 101 mmol/L (98-108); Creatinine, Blood 2.82 mg/dL (0.40-1.00); Glomerular Filtration Rate 20 (60-); Glucose, Blood 109 mg/dL (70-99); Magnesium, Blood 2.3 mg/dL (1.6-2.4); Phosphorus, Blood 4.8 mg/dL (2.5-4.9); Potassium, Blood 3.6 mmol/L (3.5-5.5); Sodium, Blood 138 mmol/L (136-145)
--- NOTE | 2022-08-08 06:02 | NUR ---
SHIFT SUMMARY PT REMAINS INTUBATED WITH VENT SETTINGS AC/VC+ 16/410/8/40%. SHE HAS BEEN OFF OF SEDATION SINCE YESTERDAY. SHE OPENS EYES SPONTANEOUSLY. SHE TRACKS SOME MOVEMENT. SHE IS UNABLE TO FOLLOW COMMANDS. LUNGS CLEAR IN UPPER LOBES, DIMINISHED IN BASES. NSR ON MONITOR WITH RATE 80S. SBP 110S. VHP INFUSING VIA OGT AT 10ML/HR WITH MINIMAL RESIDUALS. ABDOMEN REMAINS DISTENDED AND FIRM. SEE PREVIOUS NOTE REGARDING BLEEDING. RECTAL TUBE COLLECTED A TOTAL OF 200ML BROWN LIQUID STOOL AND APPROX 900ML RED LIQUID WITH CLOTS. BLEEDING AROUND RECTAL TUBE DECREASING. PT IS CURRENTLY RECEIVING 2ND UNIT OF BLOOD. PLAN TO REDRAW H&H AFTER INFUSION. DIALYSIS CATH DRESSING C/D/I. WILL REPORT TO ONCOMING RN.
--- NOTE | 2022-08-08 07:30 | NUR ---
ASSUMED CARE: PT INTUBATED, NOT SEDATED. VENT SETTINGS AC/VC 16/410/8/40%. EYES OPEN SPONTANEOUSLY, DOES NOT RESPOND TO VERBAL STIMULI, NO PURPOSEFUL MOVEMENT. OG IN PLACE FOR TRICKLE FEEDS. CASANOVA WITH MINIMAL URINE OUTPUT. RECTAL TUBE WITH BLOOD AND CLOTS NOTED IN LINE, WELL BLEEDING AROUND TUBE. BLOOD TRANSFUSION RUNNING AT THIS TIME.
[2022-08-08 08:28] LABS: Hematocrit 22.6 % (33.0-51.0); Hemoglobin 7.5 g/dL (11.5-16.0)
--- NOTE | 2022-08-08 09:16 | NUR ---
CALL TO DR GUTIERREZ. HE INSTRUCTED FOR REMOVAL OF RECTAL TUBE. DR MELENDEZ AND DR DINERO WERE AT BEDSIDE WHEN HE CALLED TO GIVE INSTRUCTION. STATES HE WILL COME EVALUATE PT TODAY. DR MELENDEZ INSTRUCTED FOR ABDOMINAL CT. COORDINATED WITH RT FOR TRANSPORT. DIALYSIS AWARE AND WANTS TO BE NOTIFIED WHEN PT RETURNS TO ROOM. PT'S CALLED AND HAS BEEN GIVEN UPDATE WELL.
--- NOTE | 2022-08-08 10:09 | NUR ---
PT TAKEN TO CT WITH RT AT BEDSIDE. PT DROPPED SATURATIONS WHILE LAYING FLAT. RETURNED TO ROOM AFTER EXAM AND WAS SUCTIONED WITH BLOOD TINGED SECRETIONS. PT'S SETTINGS ARE AC/VC 16/410/8/50%. NO ACUTE NEEDS AT THIS TIME.
--- NOTE | 2022-08-08 10:57 | NUR ---
Pt out to CT of abd/pelvis at time of my visit. Case conferenced with IDT meeting. Pt has new active bleeding and increased blood loss rectally. Pt has not had sedation for more than 24 hrs. Eyes open but not able to follow commands or interact. Grimaces to painful stimuli. Update called to [facility]. Update given to pt's RN re: my conversation with [facility]. He will be in in the next couple of hours to see his .
[2022-08-08 12:14] LABS: Hematocrit 26.2 % (33.0-51.0); Hemoglobin 9.2 g/dL (11.5-16.0)
--- NOTE | 2022-08-08 13:45 | NUR ---
Spiritual care visit conducted. Pt is lying in bed and minimally responsive. Pt's spouse, Wagner, is bedside and stays with pt less that 45 minutes (this Vamp Stitcher is present for his entire time with pt). Dr. Foster also speaks with Wagner and communicates the severity of pt's condition and he appears to be suprised by pt's ability to follow commands and focus for a very small window of time. Wagner expresses is struggle to maintain positive mental health and spiritual stability during this season. He states that he is trying to arrange for his mother to fly from [place] to help him and the pt, here in [place]. He talks about the experience (of the pt's changing medical conditions) resembling a roler coaster emotionally and states that he is not a good passenger. We explore his coping skills an resources, look at ways to frame the challenging situation in a better light and focus on what he has done in the past (excluding drunken binges) to get through tough seasons. I normalize his experience, and provide therapeutic listening, emotional support, gentle travel counselor and prayer. Wagner responds well ans shows signs of reduced stress. I will continue to remain available to pt and family.
--- NOTE | 2022-08-08 17:44 | NUR ---
SHIFT SUMMARY: DR GUTIERREZ CAME TO SEE PT AND TOLD STAFF TO CHECK H AND H SCHEDULED. OK TO RESTART TF AND SAID HE WILL COME BACK IN AM TO CHECK ON PT AND DETERMINE IF COLONOSCOPY IS NEEDED. PT'S WAS CONTACTED WITH UPDATE.
[2022-08-08 20:35] LABS: Hematocrit 20.4 % (33.0-51.0)
--- NOTE | 2022-08-08 23:27 | NUR ---
NOTIFIED DR KRISHNAN OF PT HEMAGLOBIN 7 DOWN FROM 9.4 WILL CONTINUE TO MONITORE AND SEE WHAT AM LABS
[2022-08-09 04:35] LABS: BASOPHILS ABSOLUTE AUTO 0.07 K/mm3 (0.00-0.23); BASOPHILS PERCENT AUTO 0 % (0-2); EOSINOPHILS ABSOLUTE AUTO 0.14 K/mm3 (0.00-0.68); EOSINOPHILS PERCENT AUTO 1 % (0-6); Hematocrit 21.4 % (33.0-51.0); Hemoglobin 7.1 g/dL (11.5-16.0); IMMATURE GRAN ABSOLUTE AUTO 0.68 K/mm3 (0.00-0.10); IMMATURE GRAN PERCENT AUTO 2 % (0-1); LYMPHOCYTES ABSOLUTE AUTO 2.89 K/mm3 (0.84-5.20); LYMPHOCYTES PERCENT AUTO 10 % (21-46); MONOCYTES ABSOLUTE AUTO 2.01 K/mm3 (0.16-1.47); MONOCYTES PERCENT AUTO 7 % (4-13); Mean Corpuscular HGB 30.6 pg (26.0-34.0); Mean Corpuscular HGB Conc 33.2 g/dL (31.5-36.5); Mean Corpuscular Volume 92 fL (80-100); NEUTROPHILS ABSOLUTE AUTO 24.57 K/mm3 (1.96-9.15); NEUTROPHILS PERCENT AUTO 81 % (41-73); NRBC ABSOLUTE 0.02 K/mm3 (0.00-0.02); NRBC Auto 0.1 /100 WBC (0.0-0.2); Platelet Count 168 K/mm3 (150-400); RDW Coefficient Variation 22.6 % (11.7-14.2); RDW Standard Deviation 63.4 fL (35.1-46.3); Red Blood Cell Count 2.32 M/mm3 (3.80-5.20); White Blood Cell Count 30.36 K/mm3 (4.00-11.30)
[2022-08-09 04:57] LABS: Albumin, Blood 3.1 g/dL (3.4-5.0); Anion Gap 12 mmol/L (6-16); Blood Urea Nitrogen 41 mg/dL (8-24); Bun/Creatinine Ratio 16.5 (12.0-20.0); CO2, Blood 25 mmol/L (21-32); Calcium, Blood 9.1 mg/dL (8.5-10.1); Chloride, Blood 98 mmol/L (98-108); Creatinine, Blood 2.48 mg/dL (0.40-1.00); Glomerular Filtration Rate 23 (60-); Glucose, Blood 116 mg/dL (70-99); Magnesium, Blood 2.3 mg/dL (1.6-2.4); Phosphorus, Blood 5.2 mg/dL (2.5-4.9); Potassium, Blood 3.4 mmol/L (3.5-5.5); Sodium, Blood 135 mmol/L (136-145); Triglycerides 133 mg/dL (30-160)
--- NOTE | 2022-08-09 06:31 | NUR ---
END OF SHIFT SUMMARY NO ACUTE EVENTS OVER NIGHT HER HEMAGLOBIN MAINTAINED AT 7,1 PT HAD A SMALL MELENA BM BT NO OTHER SIGNS OF BLEEDING. PT WAS AWAKE FOR MOST OF SHIFT PT SEEMED TO BE AWARE OF SELF AND MAKES EYECONTACT WHEN SAYING HER NAME SHE ALSO LOOK LIKE SHE WAS TRYING TO GIVE ME A THUMBS UP WHEN ASKED. SHE DID ATTEMPT TO MOVE TOWARDS ET TUBE WHEN RESTRAINTS OFF. PT REMAINS OFF SEDATION AND COMPLIENT WITH VENT. TUBE FEED TRICKEL FEED AT 10 NO RESIDUAL. PT HAS HAD MIN U/O VITALS HAVE BEEN STABLE
--- NOTE | 2022-08-09 08:15 | NUR ---
NURSING ICU DAYSHIFT: Assumed care of pt at approx 0700. Opens eyes to verbal stimuli, minimal tracking, beginning to follow simple verbal commands, gag reflex noted during oral care. Appears restful and calm in bed. Skin is cool, jaundiced, scattered bruising, redness to folds/benjamin area, circular sore to R groin w/dressing in place. Boot to LLE r/t recent ankle fx. Cardiac monitoring in place, NSR, SBP 100-120, HR 70's, 1-2+ BLE edema. ETT present 7.5/22, vent settings 16/410/8/35%, tolerating well w/O2 sat upper 90's, L/S coarse in mid/upper lobes, some improvement w/suctioning. Abd mildly distended, BT hyperactive, OGT present w/TF @ 10/hr, temp FC in place draining dada urine. PG to MARIBELL, PICC to LORIE, temp HD cath to R groin, NS TKO. No s/s of acute distress at this time. RT currently at bedside. Restraints remain in place to prevent self extubation and to protect lines. Awaiting rounding from intesivist and PMD. Cont to monitor for any changes.
[2022-08-09 13:55] LABS: Hemoglobin 6.9 g/dL (11.5-16.0)
--- NOTE | 2022-08-09 14:36 | NUR ---
UPDATE/DESATURATION: S/O at bedisde, update provided by intesivist, plan of care discussed. S/O's questions and concerns addressed at that time. Pt continues to follow and respond to simple commands, increased restlessness at times though reassures easily. At approx 1200 pt experienced desaturation to 80% while FiO2 was set at 30%. Suctioned, increased FiO2 to 60%, continued to monitor. Have been able to since decrease FiO2 to 40%, O2 sat maintaining low 90's at this time, resting comfortably.
--- NOTE | 2022-08-09 17:58 | NUR ---
NURSING PCU DAYSHIFT SUMMARY: No significant changes noted t/o the shift. Cardiac status unchanged w/SBP 95-110, HR 60-70's. Continues to experience desaturations to low 80's requiring FiO2 increase to 60%. Current vent settings 16/410/5/60% w/O2 sat 92%, tolerating well. Q2 repositioning to prevent skin breakdown, cath care completed, frequent oral and suctioning also completed. Tolerating Vital HP TF at 10cc/hr with 0-<5ml residuals. Minimal urine output of 20cc, publication designer aware. Pt appears in no distress and continues to follow basic commands when awake. Cont to monitor until rpt is given to NOC RN.
--- NOTE | 2022-08-09 18:42 | NUR ---
NURSING ICU DAYSHIFT SUMMARY: No significant changes noted t/o the shift. Cardiac status unchanged w/SBP 95-110, HR 60-70's. Continues to experience desaturations to low 80's requiring FiO2 increase to 60%. Current vent settings 16/410/5/60% w/O2 sat 92%, tolerating well. Q2 repositioning to prevent skin breakdown, cath care completed, frequent oral and suctioning also completed. Tolerating Vital HP TF at 10cc/hr with 0-<5ml residuals. Minimal urine output of 20cc, hvac lead aware. Pt appears in no distress and continues to follow basic commands when awake. Cont to monitor until rpt is given to NOC RN.
--- NOTE | 2022-08-09 19:15 | NUR ---
ASSUMPTION OF CARE PT REMAINS INTUBATED WITH VENT SETTINGS AC/VC+ 16/410/5/40%. SHE IS RECEIVING 1 UNIT PRBCS AT THIS TIME. PT OPENS EYES TO VERBAL STIMULI, NODS HEAD YES/NO TO QUESTIONS. VHP INFUSING AT TRICKLE RATE. SMALL AMOUNT OF DRAGAN URINE IN CASANOVA TUBING. VSS AT THIS TIME. SEE SHIFT ASSESSMENT.
[2022-08-10 04:22] LABS: Hematocrit 23.5 % (33.0-51.0); Hemoglobin 8.2 g/dL (11.5-16.0)
[2022-08-10 04:43] LABS: Magnesium, Blood 2.3 mg/dL (1.6-2.4)
[2022-08-10 04:45] LABS: Albumin, Blood 3.1 g/dL (3.4-5.0); Anion Gap 12 mmol/L (6-16); Blood Urea Nitrogen 62 mg/dL (8-24); Bun/Creatinine Ratio 18.8 (12.0-20.0); CO2, Blood 26 mmol/L (21-32); Calcium, Blood 8.9 mg/dL (8.5-10.1); Chloride, Blood 94 mmol/L (98-108); Creatinine, Blood 3.29 mg/dL (0.40-1.00); Glomerular Filtration Rate 17 (60-); Glucose, Blood 104 mg/dL (70-99); Phosphorus, Blood 5.8 mg/dL (2.5-4.9); Sodium, Blood 132 mmol/L (136-145)
[2022-08-10 04:46] LABS: Potassium, Blood 5.4 mmol/L (3.5-5.5)
--- NOTE | 2022-08-10 06:20 | NUR ---
SHIFT ASSESSMENT PT REMAINS INTUBATED WITH VENT SETTINGS AC/VC+ 16/410/5/40%. TKO INFUSING. SHE OPENS EYES SPONTANEOUSLY AND TRACKS MOVEMENTS. SHE IS ABLE TO ANSWER QUESTIONS BY NODDING/SHAKING HEAD. PT ABLE TO LIGHTLY SQUEEZE HANDS, UNABLE TO WIGGLE TOES. SHE HAS DENIED PAIN THROUGHOUT THE NIGHT. VHP INFUSING AT 10ML/HR. ABDOMEN FIRM/DISTENDED, BOWEL TONES HYPERACTIVE. MINIMAL RESIDUALS. CASANOVA PATENT AND DRAINING TO GRAVITY WITH SHIFT OUTPUT OF 40ML DRAGAN URINE. VSS. DR DIAZ AT BEDSIDE FOR EVAL. PLAN FOR DIALYSIS TODAY. WILL REPORT TO ONCOMING RN.
--- NOTE | 2022-08-10 09:05 | NUR ---
Care Accumed Pt intubated, AC/VC+ 16/410/5/50%, SPO2 > 90%. LS wheezing T/O. Nods yes/no to simple questions. Nods no to being in pain. Able to move lower extrems, unable to squeeze hands but pulling at SWB. Attempting to pull at tube. Educated on importance of tube remaining in place, nods yes. VHP infusing @ trickle rate. Scant amount of dada urine output in chao. BT active. Right groin dressing in palce for Dialysis. Dialysis currently at bedside. Left leg boot in place, edema present, pulses strong. VSS.
--- NOTE | 2022-08-10 11:21 | NUR ---
Update- PS 08/17, FIO2 50% Pt able to follow directions, by nodding yes/no to questions. Unable to lift head or squeeze hands. Dr. Barahona at bedside and vent settings changed. RT Mark made aware. Pt pulling Tidal Volumes of 300-400's. Tolerating well. Spoke to spouse, Wagner via phone and updated on current pt. Partner states he will visit around 1400 today.
--- NOTE | 2022-08-10 16:40 | NUR ---
Update- Pt tolerating PS 10/5, FIO2 50% well. SPO2 > 90%. Occasional episodes of RR below 10 when patient falls asleep. Able to be verbally redirected to increase RR, nods understanding. VHP @ goal of 20 ml/hr, residual of 10's. Bridgette cloudy urine output of 75 mls. VSS. at bedside throughout the day and Dr. Barahona updated partner on pt goals/care.
--- NOTE | 2022-08-10 18:18 | NUR ---
Update- Vent changes Pt changed to AC/VC+ 16/410/5/50% due to having frequent apneic episodes. Pts updated and states his number for tomorrow is [phone], in the event he needs to be contacted. No other changes t/o shift.
--- NOTE | 2022-08-10 19:15 | NUR ---
ASSUMPTION OF CARE PT REMAINS INTUBATED WITH VENT SETTINGS AC/VC+ 16/410/5/40%. LUNG SOUNDS COARSE THROUGHOUT. COMPLIANT WITH VENT WITHOUT SEDATION. PT OPENS EYES SPONTANEOUSLY. SHE TRACKS MOVEMENTS, ANSWERS QUESTIONS BY NODDING/SHAKING HEAD. SHE IS MORE ALERT AND INTERACTIVE THAN LAST NIGHT. SHE IS ABLE TO VERY LIGHTLY SQUEEZE BILAT HANDS AND WIGGLE TOES. TUBE FEEDING INFUSING VIA OGT AT GOAL RATE, RESIDUALS 5ML. ABDOMEN DISTENDED, FIRM, BOWEL TONES HYPERACTIVE. CASANOVA PATENT WITH SMALL AMOUNT OF DRAGAN/CLOUDY URINE. VSS. SEE SHIFT ASSESSMENT.
[2022-08-11 03:51] LABS: Hemoglobin 7.6 g/dL (11.5-16.0); Mean Corpuscular HGB 30.3 pg (26.0-34.0); Mean Corpuscular Volume 92 fL (80-100); Mean Platelet Volume 12.1 fL (9.1-12.4); Platelet Count 170 K/mm3 (150-400); RDW Coefficient Variation 22.7 % (11.7-14.2); RDW Standard Deviation 69.5 fL (35.1-46.3); Red Blood Cell Count 2.51 M/mm3 (3.80-5.20)
[2022-08-11 03:53] LABS: BASOPHILS ABSOLUTE AUTO 0.06 K/mm3 (0.00-0.23); BASOPHILS PERCENT AUTO 0 % (0-2); EOSINOPHILS ABSOLUTE AUTO 0.13 K/mm3 (0.00-0.68); EOSINOPHILS PERCENT AUTO 1 % (0-6); IMMATURE GRAN ABSOLUTE AUTO 0.27 K/mm3 (0.00-0.10); IMMATURE GRAN PERCENT AUTO 1 % (0-1); LYMPHOCYTES ABSOLUTE AUTO 2.79 K/mm3 (0.84-5.20); LYMPHOCYTES PERCENT AUTO 11 % (21-46); MONOCYTES ABSOLUTE AUTO 2.09 K/mm3 (0.16-1.47); MONOCYTES PERCENT AUTO 9 % (4-13); NEUTROPHILS ABSOLUTE AUTO 19.39 K/mm3 (1.96-9.15); NEUTROPHILS PERCENT AUTO 78 % (41-73); NRBC ABSOLUTE 0.02 K/mm3 (0.00-0.02); NRBC Auto 0.1 /100 WBC (0.0-0.2); White Blood Cell Count 24.73 K/mm3 (4.00-11.30)
[2022-08-11 04:09] LABS: Albumin/Globulin Ratio 0.7 (0.8-1.8); Bilirubin, Direct 4.1 mg/dL (0.0-0.3); Bilirubin, Indirect 1.9 mg/dL (0.1-0.7); Bun/Creatinine Ratio 19.5 (12.0-20.0); Calcium, Blood 9.1 mg/dL (8.5-10.1); Creatinine, Blood 2.51 mg/dL (0.40-1.00); Globulin, Blood 4.1 g/dL (2.2-4.0); Magnesium, Blood 2.1 mg/dL (1.6-2.4); Phosphorus, Blood 4.1 mg/dL (2.5-4.9); Potassium, Blood 3.7 mmol/L (3.5-5.5); Total Protein, Blood 7.1 g/dL (6.4-8.2)
--- NOTE | 2022-08-11 05:04 | NUR ---
SHIFT SUMMARY NO ACUTE CHANGES THIS SHIFT. PT REMAINS INTUBATED WITH VENT SETTINGS AC/VC+ 16/410/5/40%. SHE OPENS EYES SPONTANEOUSLY. PARTICIPATES IN CONVERSATION BY NODDING/SHAKING HEAD. PT ABLE TO SQUEEZE HANDS WEAKLY AND WIGGLE TOES. LUNGS COARSE THROUGHOUT. COMPLIANT WITH VENT WITHOUT SEDATION. NSR ON MONITOR WITH RATE IN 80S. BP STABLE WITH MAP >65. VHP INFUSING AT GOAL RATE WITH MINIMAL RESIDUALS. ABDOMEN FIRM/DISTENDED, BOWEL TONES ACTIVE. CASANOVA PATENT AND DRAINING DRAGAN URINE TO GRAVITY. VSS. WILL REPORT TO ONCOMING RN.
--- NOTE | 2022-08-11 09:26 | NUR ---
SBT PT HAS REMAINED OFF SEDATION FOR DAYS. PT PLACED ON PRESSURE SUPPORT 5/5, FIO2 30% AT THIS TIME BY DR RENTERIA. PLAN TO EXTUBATE PT WHEN PT SPOUSE ARRIVES. VSS.
--- NOTE | 2022-08-11 13:29 | NUR ---
Spiritual care visit conducted. Patient is lying in bed and alert. Pt's spouse, Wagner is bedside. We all marvel at pt's progress. Pt smiles often and engages in conversation with facial expresion, head nods and eye movement. Wagner is emotional with gratitude and hugs the pt every few minutes. He thanks the doctors, nurses and anyone who has had a hand in her care. He also states that he may have to take God a little more seriously because he feels like there was some divine help in the pt's recovery as well. We all say a prayer of gratitude together and the pt says a very slow, clear "Amen." I let Wagner have more private time with the pt. They both voice their appreciation for the visit. I will continue to remain available to pt and family.
--- NOTE | 2022-08-11 18:10 | NUR ---
SHIFT SUMMARY PT DID WELL THIS SHIFT S/P EXTUBATION THIS AM. PT HAS REMAINED AWAKE AND ALERT THIS SHIFT. PT STARES OFF WHEN UNDISTURBED, BUT TRACKS WHEN IN ROOM AND FOLLOWS SIMPLE COMMANDS. PT NODS HEAD YES/NO TO QUESTION. PT ATTEMPTS TO SPEAK, BUT VOICE IS HOARSE. VITAL SIGNS HAVE REMAINED STABLE. PT ON 2L O2 NC. PICC TO LORIE, PG TO MARIBELL, AND TRIALYSIS CATH REMAIN C/D/I. SALINE LOCKED. CASANOVA TEMP PROBE REMAINS IN PLACE WITH SMALL AMOUNT OF DARK DRAGAN OUTPUT NOTED. PT WITH INCONTINENT BM THIS SHIFT. ATTENDS IN PLACE. CAM BOOT TO LLE REMAINS IN PLACE. PT SPOUSE AT BEDSIDE MOST OF THIS AFTERNOON. WILL CONTINUE TO MONITOR AND REPORT OFF TO ONCOMING RN.
--- NOTE | 2022-08-11 19:17 | NUR ---
ASSUMED CARE OF PATIENT AT 1900. BEDSIDE REPORT DONE WITH PREVIOUS RN. ALLERGIES, CODE STATUS, LINES, AND ACCESS REVIEWED. PATIENT RESTING COMFORTABLY IN BED.
[2022-08-12 04:44] LABS: Base Excess Venous 6.7 mmol/L; Bicarbonate Venous 29.9 mmol/L (24.0-30.0); PCO2 Venous 43.7 mmHg (38-42); pH Blood Venous 7.46 (7.34-7.37)
[2022-08-12 05:01] LABS: BASOPHILS ABSOLUTE AUTO 0.04 K/mm3 (0.00-0.23); BASOPHILS PERCENT AUTO 0 % (0-2); EOSINOPHILS ABSOLUTE AUTO 0.13 K/mm3 (0.00-0.68); EOSINOPHILS PERCENT AUTO 1 % (0-6); Hematocrit 22.8 % (33.0-51.0); Hemoglobin 7.4 g/dL (11.5-16.0); IMMATURE GRAN ABSOLUTE AUTO 0.14 K/mm3 (0.00-0.10); IMMATURE GRAN PERCENT AUTO 1 % (0-1); LYMPHOCYTES ABSOLUTE AUTO 1.72 K/mm3 (0.84-5.20); LYMPHOCYTES PERCENT AUTO 9 % (21-46); MONOCYTES ABSOLUTE AUTO 1.26 K/mm3 (0.16-1.47); MONOCYTES PERCENT AUTO 7 % (4-13); Mean Corpuscular HGB 30.7 pg (26.0-34.0); Mean Corpuscular HGB Conc 32.5 g/dL (31.5-36.5); Mean Corpuscular Volume 95 fL (80-100); Mean Platelet Volume 12.2 fL (9.1-12.4); NEUTROPHILS PERCENT AUTO 82 % (41-73); Platelet Count 157 K/mm3 (150-400); RDW Coefficient Variation 22.4 % (11.7-14.2); RDW Standard Deviation 72.3 fL (35.1-46.3); Red Blood Cell Count 2.41 M/mm3 (3.80-5.20); White Blood Cell Count 18.49 K/mm3 (4.00-11.30)
[2022-08-12 05:16] LABS: Albumin, Blood 3.1 g/dL (3.4-5.0); Anion Gap 12 mmol/L (6-16); Blood Urea Nitrogen 71 mg/dL (8-24); Bun/Creatinine Ratio 22.8 (12.0-20.0); CO2, Blood 30 mmol/L (21-32); Calcium, Blood 10.1 mg/dL (8.5-10.1); Chloride, Blood 98 mmol/L (98-108); Creatinine, Blood 3.11 mg/dL (0.40-1.00); Glomerular Filtration Rate 18 (60-); Glucose, Blood 101 mg/dL (70-99); Magnesium, Blood 2.7 mg/dL (1.6-2.4); Phosphorus, Blood 5.8 mg/dL (2.5-4.9); Potassium, Blood 3.5 mmol/L (3.5-5.5); Sodium, Blood 140 mmol/L (136-145)
--- NOTE | 2022-08-12 06:35 | NUR ---
SHIFT SUMMARY: NEURO: PATIENT ALERT AND ORIENTED TO SELF. FOLLOWS COMMANDS BUT NEEDS FREQUENT REDIRECTION. CONTRACTURES IN HANDS. DID NOT ASSESS SWALLOW THIS SHIFT. CARDIAC: VSS. HR 80'S SR RESP: 3L TITRATED TO 5L NC TO MAINTAIN O2 >95% GI: 2 LIQUID MAROON BOWEL MOVEMENTS : CASANOVA IN PLACE DRAINING TO GRAVITY. 175 UOP SKIN: PALE. TURNED PATIENT Q2 HOURS.
--- NOTE | 2022-08-12 07:30 | NUR ---
TOOK OVER CARE OF PT AT 0715. PT RESTING ON 3LNC
--- NOTE | 2022-08-12 17:22 | NUR ---
SHIFT SUMMARY NEURO: PT FOLLOWS COMMANDS EQUALLY IN ALL EXTREMETIES. THERE IS A DELAY BEFORE PT IS ABLE TO RESPOND OR FOLLOW COMMANDS. PT IS ORIENTED TO SELF. UNALBE TO TALK FULL SENTENCES BUT WILL HOARSLY STATE SINGLE WORDS. ROM COMPLETED IN ALL EXTREMETIES. PT IS BEGINNING TO FORM CONTRACTURES IN ELBOWS AND HANDS. ASSESSMENT LIMITED DUE TO PATIENTS DECONDITIONED STATE AND MUSCLE WASTING. PUPILS BRISK AND EQUAL. CARDIAC: FAINT PULSES, HYPOTENSIVE DURING DIALYSIS. IN NSR. LUNGS: PT ON 4LNC, DIMINISHED BASES, WEAK COUGH. SKIN: PALE SKIN WITH JAUNDICED EYES. GI: DOBHOFF PLACED DUE TO FAILED SPEECH EVAL, TUBE FEEDS RESTARTED.
[2022-08-13 04:31] LABS: Hematocrit 24.5 % (33.0-51.0); Hemoglobin 7.8 g/dL (11.5-16.0); Mean Corpuscular HGB 31.3 pg (26.0-34.0); Mean Corpuscular HGB Conc 31.8 g/dL (31.5-36.5); Mean Corpuscular Volume 98 fL (80-100); Platelet Count 178 K/mm3 (150-400); RDW Standard Deviation 78.3 fL (35.1-46.3); Red Blood Cell Count 2.49 M/mm3 (3.80-5.20); White Blood Cell Count 23.42 K/mm3 (4.00-11.30)
[2022-08-13 04:48] LABS: Albumin, Blood 3.2 g/dL (3.4-5.0); Anion Gap 10 mmol/L (6-16); Blood Urea Nitrogen 45 mg/dL (8-24); Bun/Creatinine Ratio 16.9 (12.0-20.0); CO2, Blood 33 mmol/L (21-32); Calcium, Blood 9.6 mg/dL (8.5-10.1); Chloride, Blood 101 mmol/L (98-108); Creatinine, Blood 2.66 mg/dL (0.40-1.00); Glomerular Filtration Rate 21 (60-); Glucose, Blood 133 mg/dL (70-99); Magnesium, Blood 2.5 mg/dL (1.6-2.4); Phosphorus, Blood 4.1 mg/dL (2.5-4.9); Potassium, Blood 3.2 mmol/L (3.5-5.5); Sodium, Blood 144 mmol/L (136-145)
[2022-08-13 05:33] LABS: BAND PERCENT MAN 3 % (0-8); BASOPHILS PERCENT MAN 0 % (0-2); EOSINOPHILS PERCENT MAN 0 % (0-6); LYMPHOCYTES ABSOLUTE MAN 2.34 K/mm3 (0.84-5.20); LYMPHOCYTES PERCENT MAN 10 % (21-46); MONOCYTES ABSOLUTE MAN 1.63 K/mm3 (0.16-1.47); MONOCYTES PERCENT MAN 7 % (4-13); MYELOCYTE ABSOLUTE MAN 0.23 K/mm3 (0.00-0.00); MYELOCYTE PERCENT MAN 1 % (0-0); SEG NEUTROPHILS PERCENT MAN 79 % (41-73); TOTAL CELLS COUNTED 100
--- NOTE | 2022-08-13 10:54 | NUR ---
AM NOTE: PATIENT SLEEPY. AWAKES TO NAME AND NODS YES AND NO. ABLE TO TELL ME HER NAME AND REPLY WITH ONE WORD. VERY SOFT SPOKEN AND SLOW TO RESPOND. DENIES NUMBNESS/TINGLING. PERRLA. LEFT ANKLE ELEVATED AND IN BRACE. SKIN UNDER BRACE WNL. BRUISING SCATTERED THROUGHOUT AND TO BACK. KRISTEN AREA RED, CLEANED AND POWDER APPLIED. ON 5L NASAL CANNULA SATING ABOVE 95%. LUNGS SOUNDING COARSE AND DIM. OCCASIONAL LOOSE COUGH. SUCTION AT BEDSIDE. TELE SHOWING SINUS RHYTHM WITH HR 80-90'S. BP STABLE. DENIES CHEST PAIN/PRESSURE. VERY MINIMAL EDEMA TO BLE. CASANOVA CATH IN PLACE DRAINING VERY LITTLE AMOUNTS OF DARK DRAGAN URINE. CATH CARE COMPLETED THIS AM. NO DIALYSIS TODAY. DIALYSIS CATH TO RIGHT GROIN. DOBHOFF CLOGGED UPON SHIFT START. UNABLE TO DECLOG, REMOVED DOBHOFF WITH STREETCAR DISPATCHER. SPEECH THERAPY IN TO SEE PATIENT, STARTED ON PUREE DIET. DR. MITCHELL CALLED AND UPDATED ON DOBHOFF. ORDERS TO DC DOBHOFF ORDERS AND TO LEAVE OUT. PG TO RIGHT UPPER ARM AND PICC TO LEFT UPPER ARM WNL. Q6 BLOOD SUGARS. Q2 TURNING AND NEEDED. CALL LIGHT IN REACH. PHYSICAL THERAPY WORKING WITH PATIENT AT THIS TIME. THIS RN UPDATED WITH PATIENT PERMISSION.
--- NOTE | 2022-08-13 18:20 | NUR ---
SHIFT SUMMARY: PATIENT MORE ALERT AND AWAKE THROUGHOUT SHIFT. CONTINUES TO DENY PAIN/NUMBNESS TINGLING. MOVING UPPER EXTREMITIES. HANDS REMAIN CONTRACTED. Q2 TURNING AND NEEDED. ELEVATING LEFT LOWER EXTREMITY. SKIN CHECKED Q4 ON LEFT ANKLE. RIGHT HEEL PAD PLACED. REMAINS ON 5L NASAL CANNULA SATING ABOVE 95%. TELE CONTINUES TO SHOW SINUS RHYTHM WITH HR 80'S. DENIES CHEST PAIN/PRESSURE. POOR APPEATITE. FOLLOWING SPEECH ORDERS. PATIENT WANTING MORE LIQUIDS SUCH JUICE, 7UP, AND WATER. TAKING A FEW BITS WITH EACH MEAL. IN TWICE TODAY AND HELPING WITH CARES. RIGHT GROIN DIALYSIS CATH DRESSING CLEANED AND REPLACED USING STERILE TECHNIQUE. IV ACCESS SALINE LOCKED. VERY SMALL MAROON SMEAR.CASANOVA CATH PUTTING OUT VERY MINIMAL URINE THAT IS DARK DRAGAN. CALL LIGHT IN REACH, WATCHING TV. DENIES NEEDS. WILL CONTINUE TO MONITOR AND REPORT OFF TO ONCOMING RN.
[2022-08-14 06:09] LABS: Hematocrit 23.2 % (33.0-51.0); Hemoglobin 7.6 g/dL (11.5-16.0)
[2022-08-14 06:33] LABS: Albumin, Blood 3.2 g/dL (3.4-5.0); Anion Gap 10 mmol/L (6-16); Blood Urea Nitrogen 62 mg/dL (8-24); Bun/Creatinine Ratio 16.2 (12.0-20.0); CO2, Blood 31 mmol/L (21-32); Calcium, Blood 10.2 mg/dL (8.5-10.1); Chloride, Blood 103 mmol/L (98-108); Creatinine, Blood 3.82 mg/dL (0.40-1.00); Glomerular Filtration Rate 14 (60-); Glucose, Blood 119 mg/dL (70-99); Magnesium, Blood 2.6 mg/dL (1.6-2.4); Phosphorus, Blood 4.9 mg/dL (2.5-4.9); Potassium, Blood 3.6 mmol/L (3.5-5.5); Sodium, Blood 144 mmol/L (136-145)
--- NOTE | 2022-08-14 09:06 | NUR ---
AM NOTE: PATIENT ALERT TO SELF, VERY SOFT SPOKEN, AT TIMES SAYING NONSENSICAL STATEMENTS. PERRLA WITH SLUGGISH PUPILS. DENIES NUMBNESS/TINGLING. LEFT HAND CONTRACTURES. VERY LITTLE STRENGTH WITH BILATERAL FACTORY HAND STRENGTH. ALMOST FLACCID LOWER EXTREMITITES. ABLE TO WIGGLE TOES. LEFT ANKLE IN BRACE. SKIN CHECKED AND BRACE REPOSITIONED THIS AM. DENIES PAIN. COCCYX RED, MEPILEX PLACED. Q2 TURNING AND NEEDED. ON 4L NASAL CANNULA SATING ABOVE 94%. LUNGS SOUNDING COARSE AND DIM. VERY WEAK COUGH. FOLLOWING SPEECH ORDERS AND PATIENT DOING GREAT WITH SWALLOW. NOT VERY INTERESTED IN EATING FOOD TAKING ONLY A FEW BITES OF BREAKFAST WITH PILLS. DRINKING WATER, AND ICE CHIPS. CASANOVA CATH IN PLACE DRAINING VERY MINIMAL DARK/DRAGAN URINE. DIALYSIS THIS AM. CATH CARE COMPLETED. VERY SMALL BROWN/MAROON SMEAR THIS AM. TELE SHOWING SINUS RHYTHM WITH HR 80'S. DENIES CHEST PAIN/PRESSURE. BP STABLE. EDEMA TO BILATERAL LOWER EXTREMITIES. PICC AND POWERGLIDE DRAWING AND FLUSHING WELL, SALINE LOCKED. CALL LIGHT IN REACH. PATIENT IN DIALYSIS AT THIS TIME.
--- NOTE | 2022-08-14 18:04 | NUR ---
SHIFT SUMMARY: NO ACUTE CHANGES. NEURO REMAINS UNCHANGED. ON 2L NASAL CANNULA SATING MID 90'S. OCCASIONAL COUGH. TELE CONTINUES TO SHOW SINUS RHYTHM WITH HR 80-90'S. BP STABLE. DIALYSIS TODAY. ONE SMALL BOWEL SMEAR THAT WAS BROWN/MAROON. DR. CASTAÑEDA NOTIFIED THIS AM. ORAL CARE Q4. Q2 TURNING. UP TO RECLINER THIS EVENING VIA LIFT. IN TO VISIT AND UPDATED. ONLY 50 ML URINE OUTPUT THIS SHIFT. POOR INTAKE. WILL TAKE SPOON FULLS OF 7UP/WATER/ICE CHIPS, BUT NOT SUPER INTERESTED IN FOOD AND ONLY TAKING A FEW BITES WITH EACH MEAL. MEDS CRUSHED IN APPLESAUCE. SWALLOW WNL. NOT USING CALL LIGHT. IN RECLINER AT THIS TIME, LOCKED. BED BATH COMPLETED TODAY. LEFT ANKLE REMAINS IN BOOT, SKIN CHECKED Q4 THROUGHOUT SHIFT. DENIES NEEDS AT THIS TIME. WILL CONTINUE TO MONITOR AND REPORT OFF TO ONCOMING RN.
--- NOTE | 2022-08-14 22:37 | NUR ---
CALL TO THIS RN CALLS BACK GIRMA AND PROVIDES UPDATE ON PT. STATES HE HAS NOT SPOKEN TO A PHYSICIAN IN SEVERAL DAYS AND WOULD LIKE TO IF ABLE. GIRMA STATES HE WOULD LIKE MORE INFORMATION ON PLAN FOR DIALYSIS SCHEDULE AND ONGOING PLAN FROM DOCTOR. THIS RN NOTIFIES HIM I WILL TRY TO CATCH DR DIAZ AND ASK IF HE CAN CALL HIM IF HE IS ABLE IN THE AM, IF NOT I WILL NOTIFY DAY NURSE OF 'S REQUEST.
[2022-08-15 05:13] LABS: Hemoglobin 7.8 g/dL (11.5-16.0); Mean Corpuscular HGB 30.5 pg (26.0-34.0); Mean Corpuscular HGB Conc 31.2 g/dL (31.5-36.5); Mean Corpuscular Volume 98 fL (80-100); Mean Platelet Volume 12.1 fL (9.1-12.4); Platelet Count 198 K/mm3 (150-400); RDW Coefficient Variation 22.1 % (11.7-14.2); Red Blood Cell Count 2.56 M/mm3 (3.80-5.20); White Blood Cell Count 18.61 K/mm3 (4.00-11.30)
[2022-08-15 05:28] LABS: Albumin, Blood 3.3 g/dL (3.4-5.0); Albumin/Globulin Ratio 0.7 (0.8-1.8); Bilirubin, Total 5.4 mg/dL (0.1-1.0); Bun/Creatinine Ratio 14.7 (12.0-20.0); Calcium, Blood 10.3 mg/dL (8.5-10.1); Creatinine, Blood 3.46 mg/dL (0.40-1.00); Globulin, Blood 4.6 g/dL (2.2-4.0); Magnesium, Blood 2.5 mg/dL (1.6-2.4); Percent Saturation 19.5 % (15.0-50.0); Potassium, Blood 3.6 mmol/L (3.5-5.5); Total Protein, Blood 7.9 g/dL (6.4-8.2)
--- NOTE | 2022-08-15 07:33 | NUR ---
SHIFT SUMMARY PT ORIENTED TO SELF, , AND PLACE. RESPONSES TO QUESTIONS AND RANDOM STATEMENTS MADE BY PATIENT ARE DIFFICULT TO FOLLOW AND SEEM DISCONNECTED. PT BREATHING APPEARS SHALLOW AND UNLABORED, SATS DECREASE AT TIMES DURING SHIFT, O2 TITRATED BETWEEN 2-3 L VIA NC PRN. PT TURNED FREQUENTLY PER ORDERS TO AVOID BREAKDOWN D/T LIMITED MOVEMENT. SKIN UNDER BOOT OF L FOOT APPEARS TO REMAIN INTACT T/O SHIFT. SOME DRAINAGE FROM RECTUM, ORANGISH IN COLOR. MINIMAL URINE OUTPUT. TOTAL OF 25 MLS THROUGHOUT SHIFT.
--- NOTE | 2022-08-15 13:48 | NUR ---
Spiritual care visit conducted. Wagner is present and talks about many of the stressors that he is trying ot manage. We talk about healthy ways to work through stress and how to stay positive in the longevity of the process. I provide therapeutic listening, normalize his experience and provide a calming presence. Wagner and patient respond well and show signs of reduced stress. I will continue to remain available.
--- NOTE | 2022-08-15 18:26 | NUR ---
Shift Summary Pt alert t/o shift, oriented to self, place and spouse. Pt answering some questions appropriately, nonsenical at times. Pt soft spoken and hard to understand at times. Pt reports feeling uncomfortable, denies pain and medications. Repostioned q2. Pt denies chest pain/pressure, sob, nasuea and dizziness when asked. spo2 >90% on 2-3l o2 via nc. Vss. Orders for doboff placement, pt refusing at this time. Pt refusing most food at this time, spoke with the patient about nutrition intake and healing, pt continues to refuse. Left leg, boot removed, only need it on for weight bearing per Dr Yeager. No other acute changes noted. Will continue to monitor.
[2022-08-16 05:37] LABS: Hematocrit 24.7 % (33.0-51.0); Hemoglobin 7.8 g/dL (11.5-16.0)
[2022-08-16 05:45] LABS: Albumin, Blood 3.4 g/dL (3.4-5.0); Anion Gap 11 mmol/L (6-16); Blood Urea Nitrogen 75 mg/dL (8-24); Bun/Creatinine Ratio 16.9 (12.0-20.0); CO2, Blood 28 mmol/L (21-32); Calcium, Blood 10.4 mg/dL (8.5-10.1); Chloride, Blood 101 mmol/L (98-108); Creatinine, Blood 4.44 mg/dL (0.40-1.00); Glomerular Filtration Rate 12 (60-); Glucose, Blood 110 mg/dL (70-99); Magnesium, Blood 2.6 mg/dL (1.6-2.4); Phosphorus, Blood 6.1 mg/dL (2.5-4.9); Potassium, Blood 3.8 mmol/L (3.5-5.5); Sodium, Blood 140 mmol/L (136-145)
--- NOTE | 2022-08-16 05:59 | NUR ---
SHIFT SUMMARY PT ALERT AND ORIENTED X2. BEDREST THROUGHOUT THE NIGHT, MINIMAL SLEEP. AFEBRILE. HR 80-90'S. BP STABLE. ON 2L NC SATS OVER 92%. PT REFUSED PO MEDICATION W/ APPLESAUCE BUT AGREEABLE TO ORAL VANCOMYCIN. Q2 TURNS. X2 EPISODES OF LOOSE BROWN LIQUID STOOL ALL OVER THE BED. CASANOVA IN PLACE DRAINING DARK COLORED URINE TO GRAVITY, MINIMAL OUTPUT. SLOW TO RESPOND, SOFT SPOKEN, WILL ONLY REPLY IN YES/NO OR SHORT SENTENCES. IN BED WITH CALL ALARM AT SIDE, WILL CONTINUE TO MONITOR UNTIL REPORT GIVEN TO ONCOMING RN
--- NOTE | 2022-08-17 04:34 | NUR ---
SHIFT SUMMARY A/OX2, SLOW TO RESPOND/SOFT SPOKEN. FLAT AFFECT. DENIES PAIN OR SOB. CURRENTLY ON 2L VIA NC WITH SATS GREATER THAN 92. PICC TO LORIE, PG TO MARIBELL. TEMP CASANOVA PATENT DRAINING DARK TEA COLORED URINE. VSS, NO ACUTE CHANGES AT THIS TIME. BED IN LOWEST POSITION WITH CALL LIGHT IN REACH. WILL CONTINUE TO MONITOR AND REPORT TO ONCOMING RN.
[2022-08-17 04:49] LABS: Hematocrit 24.1 % (33.0-51.0); Hemoglobin 7.7 g/dL (11.5-16.0)
[2022-08-17 05:10] LABS: Albumin, Blood 3.3 g/dL (3.4-5.0); Anion Gap 10 mmol/L (6-16); Blood Urea Nitrogen 42 mg/dL (8-24); Bun/Creatinine Ratio 13.3 (12.0-20.0); CO2, Blood 31 mmol/L (21-32); Chloride, Blood 99 mmol/L (98-108); Creatinine, Blood 3.15 mg/dL (0.40-1.00); Glomerular Filtration Rate 18 (60-); Glucose, Blood 93 mg/dL (70-99); Magnesium, Blood 2.4 mg/dL (1.6-2.4); Phosphorus, Blood 3.8 mg/dL (2.5-4.9); Potassium, Blood 3.3 mmol/L (3.5-5.5); Sodium, Blood 140 mmol/L (136-145)
--- NOTE | 2022-08-17 13:22 | NUR ---
PT UP IN BED WATCHING TV. PT REPORTS NOT WANTING TO TAKE AFTERNOON MEDICATIONS, STATES "IT IS TOO MUCH, I JUST DON'T WANT TO DO IT". EDUCATION ON PURPOSE AND BENEFITS OF MEDICATIONS GIVEN. PT STATED SHE UNDERSTOOD BUT STILL DID NOT WANT TO TAKE THEM. PT ALSO DID NOT WANT SCD'S ON, EDUCATION PROVIDED. OT AND SPEECH IN TO WORK WITH PT EARILER THIS AFTEROON AROUND LUNCH TIME.
--- NOTE | 2022-08-17 15:07 | NUR ---
PT UP TO BEDSIDE CHAIR USING LIFT. L ANKLE BOOT IN PLACE. PT TOLERATING BEING UP IN CHAIR WELL. JUST STATES SHE IS TIRED. PHYSICAL THERAPY WAS IN TO WORK WITH PT THIS AFTERNOON. HAS BEEN AT BEDSIDE VISITING WITH PT.
--- NOTE | 2022-08-17 16:22 | NUR ---
Spiritual care visit conducted. Pt is fairly quiet today but chimes into conversation when asked specific questions. She is more positive and smiles more today. Spouse, Wagner is very talkative and talks about their life, pt's likes and dislikes and his fears about housing and where they will be able to live to have a safe and clean environment when pt will d/c from a SNF. I provide therapeutic listening, gentle community health counselor and prayer. Pt and Wagner respond well and show signs of being encouraged and uplifted. I will continue to remain available.
--- NOTE | 2022-08-17 16:52 | NUR ---
PT CURRENTLY UP IN BEDSIDE CHAIR. DRESSING CHANGES COMPLETED, SITES WNL. HOWEVER SMALL AMOUNT OF REDNESS/BRUISING NOTED WHERE OLD DRESSSING WAS. PT NOT CONSISTENTLY ANSWERING QUESTIONS OR INTERACTING. PT IS STILL WITHDRAWN AND NOT MAKING MUCH EYE CONTACT.
--- NOTE | 2022-08-17 17:26 | NUR ---
Attempted to assist pt with her dinner; she refused all of it except for about 10 spoonfuls of Nepro. Did take her p.o. medications. She was sitting upright in the chair for this. Stated that afterwards she wanted to get back in the bed. Lift required for transfers.
--- NOTE | 2022-08-17 18:38 | NUR ---
PT BACK TO BED W/LIFT, REPOSITIONED TO LEFT SIDE. SCANT AMOUNT OF STOOL ON STOREY PAD. PT CLEANED UP, BARRIER CREAM APPLIED AND STOREY CHANGED. NO OTHER CHANGES AT THIS TIME. CALL LIGHT IN REACH AND PT RESTING IN ROOM
[2022-08-18 04:33] LABS: Hematocrit 23.3 % (33.0-51.0); Hemoglobin 7.5 g/dL (11.5-16.0)
[2022-08-18 04:52] LABS: Albumin, Blood 3.2 g/dL (3.4-5.0); Anion Gap 10 mmol/L (6-16); Blood Urea Nitrogen 57 mg/dL (8-24); CO2, Blood 31 mmol/L (21-32); Calcium, Blood 10.7 mg/dL (8.5-10.1); Chloride, Blood 100 mmol/L (98-108); Creatinine, Blood 3.79 mg/dL (0.40-1.00); Glomerular Filtration Rate 14 (60-); Glucose, Blood 95 mg/dL (70-99); Magnesium, Blood 2.5 mg/dL (1.6-2.4); Phosphorus, Blood 3.7 mg/dL (2.5-4.9); Potassium, Blood 3.4 mmol/L (3.5-5.5); Sodium, Blood 141 mmol/L (136-145)
--- NOTE | 2022-08-18 05:38 | NUR ---
SHIFT SUMMARY ASSUMED CARE OF PT AT 1900. PT IS A/OX2, BUT IS SELECTIVE ABOUT ANSWERING QUESTIONS. PT ANSWERS WITH A WHISPERED VOICE BUT IS ABLE TO MAKE NEEDS KNOWN WITH A HEAD NOD. HEART SOUNDS REGULAR, LUNG SOUNDS HAVE FINE CRACKLES. PT WORE 3L NC T/O THE NIGHT. PT WAS AWAKE T/O THE SHIFT. PT TOOK PILLS CRUSHED WTIH CHOCOLATE PUDDIN. PT HAS REDNESS ON HER BOTTOM, TURNED Q2. PT HAD NO ACUTE EVENTS.
--- NOTE | 2022-08-18 07:48 | NUR ---
Pt appears to be sleeping this morning in bed. Per noc RN, she was awake and conversant throughout the night, answering questions but speaking very softly. Per aba tutor Annita, she will be getting dialysis today.
--- NOTE | 2022-08-18 09:42 | NUR ---
PT SLEEPING UPON ARRIVAL, EASILY AROUSABLE. VSS. CURRENTLY ON 2 L NC, O2 SATS 95. PT DENIES SOB, CHEST PAIN OR CHEST PRESSURE. PT DENIES ANY OTHER PAIN. PT RESPONDING TO QUESTIONS W/HEAD NODS OR VERY SOFT VOICE. BED BATH AND COMPLETE LINEN CHANGE COMPLETED. PT HAD LARGE, LOOSE BM. KRISTEN CARE, CATH CARE, AND ATTENDS CHANGE COMPLETED. MILD REDNESS NOTED ON BUTTOCKS AND IN SKIN FOLDS. BARRIER CREAM AND NYSTATIN POWDER APPLIED. CASANOVA IN PLACE AND DRAINING TO GRAVITY; DRAINING DARK DRAGAN, CLOUDY URINE. SMALL AMOUNT OF SEDIMENT NOTED. PT FINSIHED ABOUT 3/4 OF NEPRO THIS AM AND DRINKING WATER. PT TO DIALYSIS AT 0900
--- NOTE | 2022-08-18 12:38 | NUR ---
PT BACK FROM DIALYSIS AT 1200. PT ALERT AND ANSWERING SOME QUESTIONS. VSS. PT ATE SOME OF HER LUNCH AND IS NOW RESTING IN BED. NO CHANGES. CALL LIGHT IN REACH
--- NOTE | 2022-08-18 13:34 | NUR ---
OOB to recliner chair using the ceiling lift. Working with OT at this time. Pt was willing to take some more of her Nepro drink from lunchtime. She seems alert, cheerful, and is answering questions very softly.
--- NOTE | 2022-08-18 14:34 | NUR ---
Incontinent of stool while sitting in the recliner. She had just said that she needed to have a BM. Back to bed using the lift for pericare, attends and ren change at this time. back at the bedside now.l
--- NOTE | 2022-08-18 20:24 | NUR ---
returned pt's husbands phone call, updated.
--- NOTE | 2022-08-18 23:42 | NUR ---
FALL AT ABOUT [address] [employer] STATED THAT THE 02 WAS LOW FOR THE PT, AND WHEN LOOKING AT IT, IT WAS NOT A GOOD PLETH. LORENA ESCALANTE WAS FIRST IN THE ROOM WHEN SHE SAW THE WAS NOT IN BED SHE YELLED THAT SHE NEEDED HELP IN THE ROOM. PT WAS SITTING ON THE GROUND ON THE LEFT SIDE OF THE BED ON HER KNEES. PT ASSESSED, VS TAKEN, AND PATIENT PUT BACK TO BED. SHE STATED THAT SHE IS HAVING NO PAIN, AND THAT SHE "GOT EXCITED". NEURO, LIMB ASSESSMENTS, SKIN, W/O ANY CHANGES. PT WAS RE-EDUCATED ABOUT THE CALL LIGHT, BED ALARM ON MEDIUM SENSITIVITY, BED IN LOW, DOOR/CURTAIN WIDE OPEN. CALLED AND NOTIFED, AND RTUNG CALLED ABOUT THE INCIDENT.
[2022-08-19 03:27] LABS: Hematocrit 23.5 % (33.0-51.0); Hemoglobin 7.6 g/dL (11.5-16.0)
[2022-08-19 03:44] LABS: Albumin, Blood 3.2 g/dL (3.4-5.0); Anion Gap 6 mmol/L (6-16); Blood Urea Nitrogen 37 mg/dL (8-24); Bun/Creatinine Ratio 13.8 (12.0-20.0); CO2, Blood 33 mmol/L (21-32); Calcium, Blood 10.6 mg/dL (8.5-10.1); Chloride, Blood 103 mmol/L (98-108); Creatinine, Blood 2.68 mg/dL (0.40-1.00); Glomerular Filtration Rate 21 (60-); Glucose, Blood 112 mg/dL (70-99); Magnesium, Blood 2.1 mg/dL (1.6-2.4); Phosphorus, Blood 2.8 mg/dL (2.5-4.9); Potassium, Blood 3.7 mmol/L (3.5-5.5); Sodium, Blood 142 mmol/L (136-145)
--- NOTE | 2022-08-19 05:32 | NUR ---
SHIFT SUMMARY PT HAS BEEN A&OX3, BUT HAS PERIODS OF GROGGYNESS/CONFUSION. SHE HAD A FALL THIS AM, SEE PREVIOUS NOTE FOR MORE INFORMATION. SHE HAS HAD NO C/O PAIN, ANGINA, SOB, AND HER VS HAVE REMAINED STABLE T/O THE SHIFT. THE PT IS NOT ON TELEMETRY, AND IS CURRENTLY ON 2L NC TO MAINTAIN SPO2 >90%. SHE HAS A BED ALARM ON A [employer], DOOR IS OPEN, BED IS IN LOW, 3 RAILS ARE UP, AND CALL LIGHT IS IN REACH. PT WAS TAKING HER MEDICATIONS CRUSHED IN APPLE SAUCE, AND WAS NOT HAVING ANY DYSPHAGIA. SHE IS VERY DECONDITIONED AND WAS ENCOURAGED TO WORK ON FINE MOTOR SKILLS T/O THE SHIFT. SHE WAS COOPERATIVE BUT STILL VERY WEAK. WILL CONTINUE TO MONITOR UNITL SHIFT REPORT IS GIVEN TO THE ONCOMING SHIFT RN. SEE NOTES FOR ANY UPDATES.
[2022-08-19 12:15] LABS: Free Thyroxine 1.05 ng/dL (0.70-1.60); Triiodothyronine, Free 1.97 pg/mL (2.18-3.98)
--- NOTE | 2022-08-19 18:05 | NUR ---
SHIFT SUMMARY PT ALERT AND ANSWERS SOME ORIENTATIOIN QUESTIONS CORRECTLY, HAS SOME VISUAL HALLUCINATIONS. VSS THROUGHOUT SHIFT WITH 02 SATS 90-100 ON 2-3L NC. NO REPORT OF CHEST PAIN/PRESSURE THROUGHOUT SHIFT. PT INCONTINET OF STOOL, ATTENDS IN PLACE. CASANOVA IN PLACE DRAINING TO GRAVITY. PT HAD EPISODES OF HER CALLING OUT HER OWN NAME. WHEN ASKED IF SHE IS CALLING OUT TO HERSELF, PT RESPONDS "YES. I'M TRYING TO GET HER OVER HERE."
[2022-08-20 04:49] LABS: Hematocrit 23.4 % (33.0-51.0); Hemoglobin 7.4 g/dL (11.5-16.0)
[2022-08-20 05:01] LABS: Albumin, Blood 3.1 g/dL (3.4-5.0); Anion Gap 7 mmol/L (6-16); Blood Urea Nitrogen 52 mg/dL (8-24); Bun/Creatinine Ratio 21.9 (12.0-20.0); CO2, Blood 32 mmol/L (21-32); Calcium, Blood 10.6 mg/dL (8.5-10.1); Chloride, Blood 105 mmol/L (98-108); Creatinine, Blood 2.37 mg/dL (0.40-1.00); Glomerular Filtration Rate 25 (60-); Glucose, Blood 122 mg/dL (70-99); Magnesium, Blood 2.2 mg/dL (1.6-2.4); Phosphorus, Blood 4.5 mg/dL (2.5-4.9); Potassium, Blood 3.9 mmol/L (3.5-5.5); Sodium, Blood 144 mmol/L (136-145)
--- NOTE | 2022-08-20 05:41 | NUR ---
SHIFT SUMMARY PT IS ALERT, BUT HAS BEEN HAVING PERIODS OF CONFUSION. SHE THINKS SHE IS SEEING HER DOG IN THE ROOM. SHE HAS BEEN SLEEPING MOST OF THE NIGHT AND HAS HAD NO C/O PAIN, ANGINA, OR SOB. PATIENT SEEMS MORE ALERT TODAY, AND HAS BEEN MOVING IND IN BED. SHE IS STILL HAVING LOOSE INC STOOLS. PT IS ON 2-3L NC TO MAINTAIN SPO2 >90%. WHEN HER NC COMES OUT OF HER NOSE SHE DROPS TO 88%. ALL VS HAVE BEEN STABLE. BED IN LOW, BED ALARM ON, CALL LIGHT IN REACH, DOOR WIDE OPEN. WILL CONTINUE TO MONITOR UNTIL REPORT IS GIVEN TO THE ONCOMING SHIFT RN. SEE NOTES FOR ANY UODATES.
[2022-08-20 10:28] LABS: Hematocrit 24.8 % (33.0-51.0); Hemoglobin 7.5 g/dL (11.5-16.0); Mean Corpuscular HGB 30.1 pg (26.0-34.0); Mean Corpuscular HGB Conc 30.2 g/dL (31.5-36.5); Mean Corpuscular Volume 100 fL (80-100); Mean Platelet Volume 12.8 fL (9.1-12.4); Platelet Count 178 K/mm3 (150-400); RDW Coefficient Variation 20.6 % (11.7-14.2); RDW Standard Deviation 73.3 fL (35.1-46.3); Red Blood Cell Count 2.49 M/mm3 (3.80-5.20); White Blood Cell Count 16.89 K/mm3 (4.00-11.30)
--- NOTE | 2022-08-20 14:49 | NUR ---
TRANSFER UPDATE REPORT GIVEN TO MEDICAL FLOOR RN AT 1410. PT LEFT PCU AT 1440 VIA HOSPITAL BED AND ON 2L NC. PT BELONGINGS IN BAGS AND WITH PT FOR TRANSFER. PT MEDICATIONS IN GREEN MEDICATION BAG AND TRANSFERED WITH PT. PT CHART TRANSFERED WITH PT. PT AT BEDSIDE AND CARRIED SOME OIF PT BELONGINGS DURING TRANSFER.
--- NOTE | 2022-08-20 16:28 | NUR ---
PT TRANSFERRED FROM PCU 10 TO ROOM 337- BED-BED TX. PT A/O TO SELF, FAMILY AND YEAR. SAID SHE THOUGHT SHE WAS IN [place] AND DID NOT KNOW SHE WAS IN THE HOSPITAL. BECAME TEARFUL AND STATES SHE KNOWS SHE IS NOT THINKING CLEARLY. DOES NOT SEEM TO BE HALLUCINATING NOW REPORTED BY PREVIOUS RN. IS WITH PT TODAY DURING TRANSFER, SUPPORTIVE IN CARE. PT ORIENTED TO CALL LIGHT AND SAFETY AND REMINDED NEVER TO GET UP BY HERSELF AND NODS SHE UNDERSTANDS. PT SET UP WITH SIP CUP AND RN ASSISTED AND OBSERVED THAT SHE CAN SWALLOW SAFETLY WITH SUPERVISION. IS AT THE BEDSIDE. PT STATES SHE WAS HUNGRY- GOT PT SOUP AND ICE CREAM. ASSESSED PT AND HEARD CRACLKES IN LOWER 1/3 OF LUNG FIELD. NO COUGH NOTED YET. L FOOT DORSAL BRUISING/FADING PURPLE. MEPILEC INTACT TO COCCYC. TURNED PT TO THE SIDE OFF HER BACK. CASANOVA PATENT AND DRAINING MED CLOUDY YELLOW. NO FEVER CURRENTLY. DIALYSIS PORT TO R GROIN VISUALIZED, DRESSING INTACT, STURE INTACT, CATH SECURE. NOTED TO L HEEL 1X1 CM AREA OF PURPLE NONBLANCHABLE SKIN- PUT HEEL GUARDS ON.
--- NOTE | 2022-08-20 16:35 | NUR ---
SUMM- PT REMAINS ON BEDREST. A/O X2-3 - IN ROOM AND SUPPORTIVE IN CARE. PT TOLERATES PUREE/CLEAR LIQ DIET WITH ASSIST AND IN SMALL/FREQ INTERVALS. PT ABLE TO USE HER ARMS A LITTLE WITH POOR COORDINATION AND WEAKNESS. BUT STATES IMPROVEMENT IN USE UF ARMS. DEPENDANT IN CARE. PT HAS BEEN TURNED ROUTINELY. CALL LIGHT IN REACH. NO ATTEMPTS TO GET OOB UNATTENDED. MEPILEX INTACT TO BACKSIDE. WILL REPORT TO NIGHT RN.
--- NOTE | 2022-08-21 04:57 | NUR ---
SHIFT SUMMARY A/O TO SELF AND FAMILY. PICC TO LORIE, PG TO MARIBELL. EDILBERTO PATENT AND DRAINING TO GRAVITY. DIALYSIS ACCESS TO David WICK C/D/I. CURRENTLY ON 2L VIA NC WITH SATS GREATER THAN 92. DENIES PAIN OR SOB. VSS, NO ACUTE CHANGES AT THIS TIME. BED IN LOWEST POSITION WITH CALL LIGHT IN REACH. WILL CONTINUE TO MONITOR AND REPORT TO ONCOMING RN.
[2022-08-21 05:21] LABS: Hematocrit 24.2 % (33.0-51.0); Hemoglobin 7.7 g/dL (11.5-16.0)
[2022-08-21 06:06] LABS: Albumin, Blood 3.1 g/dL (3.4-5.0); Anion Gap 6 mmol/L (6-16); Blood Urea Nitrogen 36 mg/dL (8-24); Bun/Creatinine Ratio 22.1 (12.0-20.0); CO2, Blood 35 mmol/L (21-32); Calcium, Blood 10.4 mg/dL (8.5-10.1); Chloride, Blood 102 mmol/L (98-108); Creatinine, Blood 1.63 mg/dL (0.40-1.00); Glomerular Filtration Rate 39 (60-); Glucose, Blood 106 mg/dL (70-99); Magnesium, Blood 1.6 mg/dL (1.6-2.4); Potassium, Blood 3.4 mmol/L (3.5-5.5); Sodium, Blood 143 mmol/L (136-145)
--- NOTE | 2022-08-21 18:01 | NUR ---
SUMMARY- PT BECOMING MORE ALERT AND INTERACTIVE. ORIENTED TO SELF, FAMILY AND YEAR. STATES SHE IS IN [place]. INCONT BM, HAD 3 LOOSE STOOLS TODAY. ONCE SHE WAS AWARE SHE WAS SOILED AND ALERTED (THIS IS NEW). PT SET UP 90 DEGREES FOR MEALS AND SET UP, SUPERVISION AT FIRST, FEEDS SELF PUREE NO ASP NOTED. EATS ABOUT 50-75% OF MEALS VERY SLOW. NEEDS ENCOURAGEMENT WITH FLUIDS. SIPPY CUPS HELPFUL TO PREVENT SPILLS. STILL HAS GROSS MOTOR, BUT TROUBLE WITH FINE MOTOR SKILLS. DENIES PAIN. CASANOVA PATENT, DARK DRAGAN SLIGHTLY CLOUDY LESS THAN 200ML A SHIFT. SKIN INTACT. R GROIN HD CATH INTACT WITH DRESSING, NO BM SOILING THIS SHIFT. WILL REPORT TO HAYDEE ESCALANTE.
--- NOTE | 2022-08-22 04:06 | NUR ---
SUMMARY: PT ORIENTED TO SELF, FAMILY AND SURROUNDINGS BUT REMAINS FORGETFULL TO TOWN. SHE'S ABLE TO MAKE NEEDS KNOWN AND CALLS APPROPRIATELY FOR ASSIST. LOOSE INCONTINENT STOOLS PERSIST W/ATTENDS CHANGED PRN AND CASANOVA IS PATENT/ DRAINING DARK CONCENTRATED URINE. R.GROIN HD CATH IS INTACT W/DX THAT REMAINS C/D/I. BARRIER CREAM APPLIED TO BUTTOCKS FOR SBD PREVENTION AND TURN SCHEDULE MAINTAINED. GROSS MOTOR IS INTACT TO EXT'S BUT SHE IS DECONDITIONED W/WEAK HAND STRENGTH, PT/OT ON BOARD. SHE'S ABLE TO FEED SELF AND MANAGE SIPPY CUP W/SETUP BUT APPETITE REMAINS POOR. L.ANKLE BRACE IS IN PLACE FOR FX AND SHE DENIED PAIN. PICC AND PG ARE SL'D. NO ACUTE CHANGES, VSS/AFEBRILE. WCTM AND REPORT TO DAY RN.
[2022-08-22 06:22] LABS: BASOPHILS ABSOLUTE AUTO 0.08 K/mm3 (0.00-0.23); BASOPHILS PERCENT AUTO 1 % (0-2); EOSINOPHILS ABSOLUTE AUTO 0.34 K/mm3 (0.00-0.68); EOSINOPHILS PERCENT AUTO 2 % (0-6); Hematocrit 23.1 % (33.0-51.0); Hemoglobin 7.5 g/dL (11.5-16.0); IMMATURE GRAN ABSOLUTE AUTO 0.07 K/mm3 (0.00-0.10); IMMATURE GRAN PERCENT AUTO 0 % (0-1); LYMPHOCYTES PERCENT AUTO 13 % (21-46); MONOCYTES ABSOLUTE AUTO 1.79 K/mm3 (0.16-1.47); MONOCYTES PERCENT AUTO 11 % (4-13); Mean Corpuscular HGB 31.3 pg (26.0-34.0); Mean Corpuscular HGB Conc 32.5 g/dL (31.5-36.5); Mean Corpuscular Volume 96 fL (80-100); Mean Platelet Volume 11.9 fL (9.1-12.4); NEUTROPHILS ABSOLUTE AUTO 11.88 K/mm3 (1.96-9.15); NEUTROPHILS PERCENT AUTO 73 % (41-73); Platelet Count 166 K/mm3 (150-400); RDW Standard Deviation 70.4 fL (35.1-46.3); White Blood Cell Count 16.36 K/mm3 (4.00-11.30)
[2022-08-22 06:44] LABS: Anion Gap 9 mmol/L (6-16); Blood Urea Nitrogen 48 mg/dL (8-24); Bun/Creatinine Ratio 34.8 (12.0-20.0); CO2, Blood 33 mmol/L (21-32); Calcium, Blood 10.7 mg/dL (8.5-10.1); Chloride, Blood 101 mmol/L (98-108); Creatinine, Blood 1.38 mg/dL (0.40-1.00); Glomerular Filtration Rate 47 (60-); Glucose, Blood 134 mg/dL (70-99); Magnesium, Blood 1.6 mg/dL (1.6-2.4); Phosphorus, Blood 4.9 mg/dL (2.5-4.9); Potassium, Blood 3.4 mmol/L (3.5-5.5); Sodium, Blood 143 mmol/L (136-145)
--- NOTE | 2022-08-22 15:58 | NUR ---
SHIFT SUMMARY PT AWAKE AT START OF SHIFT. IN CONTACT [facility] FOR C-DIFF. PT INCONTINENT OF BOWEL WITH LOOSE STOOLS. CASANOVA TO GRAVITY PATENT. VERY WEAK AND DECONDITIONED, BUT ABLE TO FEED HERSELF SLOWLY WITH LRG UTENSILS. LOIS SOUZA IN TO SEE PT TODAY AND ADVANCED DIET. DR MALDONADO IN TO SEE PT; POSSIBLE D/C TO SNF IN 1-2 DAYS. PT'S IN TO VISIT FOR A WHILE. PT ABLE TO WORK WITH PT/OT TODAY, SLOWLY MAKING PROGRESS IN MOBILITY; UP TO EOB. MEDS NOW WHOLE IN APPLESAUCE, PT TOLERATING WELL. WILL CONTINUE TO MONITOR. CALL LT IN REACH.
--- NOTE | 2022-08-23 03:43 | NUR ---
NIGHTSHIFT SUMMARY Patient alert/orientedx3, slow with verbal responses, calls appropriately. Patient reported nausea after taking oral meds, no emesis noted. Contact precautions for Cdiff, several loose stools this shift. Patient resting comfortably all night, respirations even/nonlabored, arouses to voice. Vitals stable. PLan is to discharge to SNF, will continue to monitor.
[2022-08-23 05:39] LABS: Hematocrit 22.8 % (33.0-51.0); Hemoglobin 7.3 g/dL (11.5-16.0)
[2022-08-23 06:00] LABS: Albumin, Blood 2.9 g/dL (3.4-5.0); Anion Gap 9 mmol/L (6-16); Blood Urea Nitrogen 47 mg/dL (8-24); Bun/Creatinine Ratio 40.5 (12.0-20.0); CO2, Blood 30 mmol/L (21-32); Calcium, Blood 11.1 mg/dL (8.5-10.1); Chloride, Blood 103 mmol/L (98-108); Creatinine, Blood 1.16 mg/dL (0.40-1.00); Glomerular Filtration Rate 58 (60-); Glucose, Blood 114 mg/dL (70-99); Magnesium, Blood 1.7 mg/dL (1.6-2.4); Phosphorus, Blood 4.6 mg/dL (2.5-4.9); Potassium, Blood 3.3 mmol/L (3.5-5.5); Sodium, Blood 142 mmol/L (136-145)
--- NOTE | 2022-08-23 15:51 | NUR ---
Spiritual care visit conducted. Pt is sitting up in bed and alert. Pt tells me about her frustrations with being mentally and physically slow and how everyone else is moving at a high rate of speed. She is tearful when she talks about the pain that she feels because she is not mentally sharp. So pt's spouse Wagner and I spend the next several minutes recapping the amazing things that she has accomplished so far and all that she has overcome. We remind her of her value and dignity. She perks up and shows signs of being encouraged and having a greater resolve to keep pressing forward. I also provide prayer which causes the pt and Wagner to have tears of daphne as we give thanks together for the love, the miracles and the strength that is pt's story now. I will continue to remain available.
--- NOTE | 2022-08-23 16:52 | NUR ---
SHIFT SUMMARY- PT A@O X3. VSS. PT APPETITE BETTER TODAY. PT FED SELF, ATE SANDWICH. TOOK PILLS WELL IN APPLESAUCE, SLOW FEEDER, TAKE TIME. PT REPORTS GAG REFLEX WHEN RUSHED. NO ACUTE CHANGES. SPOUSE AT BEDSIDE. PT WORKED WELL WITH PT/OT TODAY. WILL CONTINUE TO MONITOR, CALL LIGHT IN REACH.
--- NOTE | 2022-08-24 04:17 | NUR ---
SHIFT SUMMARY 46 YR F ADMITTED ON 07/22/22 FOR TREV. DNR. NO ACUTE CHANGES THIS SHIFT. PT WAS EASILY ABLE TO TAKE ORAL MEDS W/ APPLESAUCE. SHE APPEARED TO BE IN A GOOD MOOD AND WAS EAGER TO CONVERSATE. SHE LOOKED HAPPY AND WAS SMILING. SHE SLEPT FOR MOST OF THE NIGHT W/O INTERUPTION. EDILBERTO IS PATENT AND DRAINING. WILL SPEAK W/ DR. DIAZ TODAY REGARDING DIALYSIS.
[2022-08-24 05:21] LABS: BASOPHILS ABSOLUTE AUTO 0.07 K/mm3 (0.00-0.23); BASOPHILS PERCENT AUTO 1 % (0-2); EOSINOPHILS ABSOLUTE AUTO 0.25 K/mm3 (0.00-0.68); EOSINOPHILS PERCENT AUTO 2 % (0-6); Hematocrit 22.3 % (33.0-51.0); Hemoglobin 7.2 g/dL (11.5-16.0); IMMATURE GRAN ABSOLUTE AUTO 0.08 K/mm3 (0.00-0.10); IMMATURE GRAN PERCENT AUTO 1 % (0-1); LYMPHOCYTES ABSOLUTE AUTO 2.05 K/mm3 (0.84-5.20); LYMPHOCYTES PERCENT AUTO 15 % (21-46); MONOCYTES ABSOLUTE AUTO 1.55 K/mm3 (0.16-1.47); MONOCYTES PERCENT AUTO 11 % (4-13); Mean Corpuscular HGB 30.6 pg (26.0-34.0); Mean Corpuscular HGB Conc 32.3 g/dL (31.5-36.5); Mean Corpuscular Volume 95 fL (80-100); Mean Platelet Volume 12.2 fL (9.1-12.4); NEUTROPHILS ABSOLUTE AUTO 9.89 K/mm3 (1.96-9.15); NEUTROPHILS PERCENT AUTO 71 % (41-73); Platelet Count 151 K/mm3 (150-400); RDW Coefficient Variation 19.9 % (11.7-14.2); RDW Standard Deviation 67.9 fL (35.1-46.3); Red Blood Cell Count 2.35 M/mm3 (3.80-5.20); White Blood Cell Count 13.89 K/mm3 (4.00-11.30)
[2022-08-24 05:59] LABS: Bun/Creatinine Ratio 46.5 (12.0-20.0); Calcium, Blood 10.3 mg/dL (8.5-10.1); Creatinine, Blood 0.99 mg/dL (0.40-1.00); Magnesium, Blood 1.7 mg/dL (1.6-2.4); Potassium, Blood 3.4 mmol/L (3.5-5.5)
--- NOTE | 2022-08-24 08:13 | NUR ---
SPOKE WITH DR REGARDING DIALYSIS CATH REMOAL. CLARIFIED ORDERS TO D/C FEM CATH, CASANOVA, WITH BLADDER TRAINING. WILL CONTINUE AND MONITOR
--- NOTE | 2022-08-24 12:53 | NUR ---
SLIGHT BRIGHT RED BLEEDING NOTED FROM VAGINAL AREA ON TOLIET TISSUE/PAD @1100. CASANOVA PULLED 1 HR PRIOR. PT STATED HAD LAST PERIOD IN 02/2022. PT ABLE TO VOID ON OWN AFTER CASANOVA. 200ML. RECHECK [id number] BLEDDING MINIMAL ON PAD (SPOTTING)
--- NOTE | 2022-08-24 17:51 | NUR ---
SHIFT SUMMARY- PT VSS DURING MOST OF SHIFT. LOW GRADE FEVER WITH MILFD FATIGUE NOTED LATE AFTERNOON, TREATED PER EMAR. APPLIED COOL COMPRESS. B/P STABLE. O2 SAT 96% NO LABOR BREATHING. A&O X4. APPETITE OK THIS AFTERNOON. WILL CONTINUE TO MONTIOR. DIALYSIS CATH REMOVED. ONE BOUT OF DIARRHEA NOTED. CALL LIGHT IN REACH. SIDE RAILS UP. BED ALARM ON.
--- NOTE | 2022-08-24 18:50 | NUR ---
BLADDER SCAN @1845. 10ML IN BLADDER PT VOIDED @ 1800
--- NOTE | 2022-08-25 04:25 | NUR ---
SHIFT SUMMARY 46 YR F ADMITTED ON 07/22/22 FOR TREV. DNR. PT FEVER FROM EARLIER TODAY IS RESOLVED. NO S/S OF FEVER THIS SHIFT. PT CALLS APPROPRIATELY WHEN SHE HAS TO GO TO THE BATHROOM AND IS CHOOSING TO USE A BEDPAN RATHER THAN TO TRY TO GET UP. SHE STATED THAT SHE WORKED HARD W/ PT TODAY AND SHE IS LOOKING FORWARD TO GOING HOME.
[2022-08-25 08:05] LABS: Magnesium, Blood 1.7 mg/dL (1.6-2.4)
[2022-08-25 08:06] LABS: Albumin, Blood 2.8 g/dL (3.4-5.0); Anion Gap 7 mmol/L (6-16); Blood Urea Nitrogen 42 mg/dL (8-24); Bun/Creatinine Ratio 47.8 (12.0-20.0); CO2, Blood 29 mmol/L (21-32); Calcium, Blood 9.7 mg/dL (8.5-10.1); Chloride, Blood 104 mmol/L (98-108); Creatinine, Blood 0.88 mg/dL (0.40-1.00); Glomerular Filtration Rate 81 (60-); Glucose, Blood 113 mg/dL (70-99); Phosphorus, Blood 4.4 mg/dL (2.5-4.9); Potassium, Blood 3.4 mmol/L (3.5-5.5); Sodium, Blood 140 mmol/L (136-145)
--- NOTE | 2022-08-25 14:06 | NUR ---
Spiritual care visit conducted. Pt is tearful today because she thought she heard the doctor say that she would be going home but then learned that the plan all along was to DC to a SNF. We rehearse all that she has overcome, the inner stregth that she has and how temporary (in the big scheme of things) a couple of weeks at [facility] is. She shares her concerns of about going to some place new and concerns about getting the care she may need at that facility. I provide first hand information about the positives of [facility] and how profitable the PT/OT will be for her going forward. Pt responds well to all interventions and shows signs of and elevated mood. I provide therapeutic listening, gentle diet counselor and prayer and will continue to remain available to pt and family.
[2022-08-25 14:44] LABS: SARS-Cov-2 (COVID-19) PCR, MMC NEGATIVE (NEGATIVE)
[2022-08-25] MEDS ORDERED: LIOT5 PO (16:15)
[2022-08-25] MEDS ORDERED: MIRT30 PO (16:16)
[2022-08-25] MEDS ORDERED: MIDO5 PO (16:16)
[2022-08-25] MEDS ORDERED: Promod946 ML PO (16:17)
[2022-08-25] MEDS ORDERED: B-1100 M1 PO (16:18)
[2022-08-25] MEDS ORDERED: VISBIOME 112.51 EACH PO (16:18)
== END 2022-08-25 17:27 | DRG 870 ==
LOC: ER 06:37 → MEDS 09:48 → ERHOLD 09:48 → ICUW 09:48 → PCU 14:14 → ICUW 07-23 03:35 → PCU 08-13 03:30 → MEDS 08-20 14:49
PROVIDERS: Emergency Medicine; Family Medicine; Internal Medicine; Internal Medicine Critical Care Medicine; Internal Medicine Nephrology; Student in an Organized Health Care Education/Training Program; ADMIT Internal Medicine
PROC: 0BH17EZ Insertion of Endotracheal Airway into Trachea, Via Natural or Artificial Opening (ICD-10-PCS; principal; 2022-07-23)
PROC: 5A1955Z Respiratory Ventilation, Greater than 96 Consecutive Hours (ICD-10-PCS; principal; 2022-07-23)
PROC: 3E033XZ Introduction of Vasopressor into Peripheral Vein, Percutaneous Approach (ICD-10-PCS; 2022-07-26)
PROC: 0W9G3ZZ Drainage of Peritoneal Cavity, Percutaneous Approach (ICD-10-PCS; 2022-08-01)
PROC: 5A1D70Z Performance of Urinary Filtration, Intermittent, Less than 6 Hours Per Day (ICD-10-PCS; 2022-08-02)
PROC: 02HV33Z Insertion of Infusion Device into Superior Vena Cava, Percutaneous Approach (ICD-10-PCS; 2022-08-02)
PROC: 30233N1 Transfusion of Nonautologous Red Blood Cells into Peripheral Vein, Percutaneous Approach (ICD-10-PCS; 2022-08-02)
PROC: 06HM33Z Insertion of Infusion Device into Right Femoral Vein, Percutaneous Approach (ICD-10-PCS; 2022-08-02)
PROC: 0DJ08ZZ Inspection of Upper Intestinal Tract, Via Natural or Artificial Opening Endoscopic (ICD-10-PCS; 2022-08-05)
PROC: 3E0336Z Introduction of Nutritional Substance into Peripheral Vein, Percutaneous Approach (ICD-10-PCS; 2022-08-10)
DX: A41.9 Sepsis, unspecified organism (principal); G92.8 Other toxic encephalopathy; J18.9 Pneumonia, unspecified organism; N17.0 Acute kidney failure with tubular necrosis; R65.21 Severe sepsis with septic shock; J80 Acute respiratory distress syndrome; J69.0 Pneumonitis due to inhalation of food and vomit; E87.1 Hypo-osmolality and hyponatremia; K76.6 Portal hypertension; F10.239 Alcohol dependence with withdrawal, unspecified; G40.89 Other seizures; D68.4 Acquired coagulation factor deficiency; K92.2 Gastrointestinal hemorrhage, unspecified; K22.10 Ulcer of esophagus without bleeding; E46 Unspecified protein-calorie malnutrition; K56.0 Paralytic ileus; F32.A Depression, unspecified; F41.9 Anxiety disorder, unspecified; K21.9 Gastro-esophageal reflux disease without esophagitis; F17.210 Nicotine dependence, cigarettes, uncomplicated; S82.65XA Nondisplaced fracture of lateral malleolus of left fibula, initial encounter for closed fracture; W19.XXXA Unspecified fall, initial encounter; E88.09 Other disorders of plasma-protein metabolism, not elsewhere classified; D64.9 Anemia, unspecified; K52.9 Noninfective gastroenteritis and colitis, unspecified; E86.0 Dehydration; R45.1 Restlessness and agitation; E87.6 Hypokalemia; G62.1 Alcoholic polyneuropathy; K70.31 Alcoholic cirrhosis of liver with ascites; K70.11 Alcoholic hepatitis with ascites; E83.42 Hypomagnesemia; N18.9 Chronic kidney disease, unspecified; E83.39 Other disorders of phosphorus metabolism; Z66 Do not resuscitate; E83.52 Hypercalcemia; K31.89 Other diseases of stomach and duodenum
CPT/HCPCS: 0241U; 31500; 36415; 36430; 36569; 36600; 49083; 51702; 51703; 51798; 70450; 71045; 71046; 73600; 73610; 73630; 74018; 74150; 74174; 76705; 80048; 80053; 80069; 80074; 80202; 81001; 82042; 82105; 82140; 82248; 82330; 82607; 82728; 82746; 82803; 82945; 82947; 83540; 83550; 83605; 83690; 83735; 84100; 84132; 84145; 84146; 84157; 84300; 84439; 84443; 84478; 84481; 85014; 85018; 85025; 85027; 85610; 85730; 86317; 86850; 86900; 86901; 86923; 87040; 87070; 87086; 87205; 87324; 87493; 89051; 92526; 92610; 93005; 93010; 93306; 94002; 94003; 94640; 94664; 94760; 94761; 94762; 96365-59; 96375-59; 97110; 97112; 97162; 97164; 97166; 97530; 97535; 99291-25; A9270; C1751; C9113; G0480; J0171; J0295; J0330; J0456; J0610; J0692; J0696; J0881; J1430; J1650; J1940; J1953; J2060; J2250; J2354; J2405; J2704; J2765; J2920; J3010; J3370; J3411; J3475; J3480; J7030; J7050; J7060; J7070; J7120; J7131; J7512; P9016; P9047; Q9967; U0004

== ENCOUNTER 2022-09-02 13:11 | Inpatient (IN) | payer OTHER ==
[~2022-09-02] VITALS: Ht 170.2 cm; Wt 72.6 kg
[~2022-09-02 13:11] MED LIST changes: +B-100 COMPLEX100 MG PO; +FUROSEMIDE40 MG PO; +LIOT5 PO; +LOMOTIL 2.5-0.1 EACH PO; +MAGNESIUM OXID500 MG PO; +MIDO5 PO; +MIRT30 PO; +Milk Thistle175 M1 PO; +NEURONTIN300 MG PO; +ONDA4SO; +Promod946 ML PO; +SPIRONOLACTONE50 MG PO; +THERA-D2000 UNIT PO; +VISBIOME 112.51 EACH PO; +ZINC15 PO
[2022-09-02 13:53] LABS: BASOPHILS ABSOLUTE AUTO 0.07 K/mm3 (0.00-0.23); BASOPHILS PERCENT AUTO 1 % (0-2); EOSINOPHILS PERCENT AUTO 2 % (0-6); Hemoglobin 7.7 g/dL (11.5-16.0); IMMATURE GRAN ABSOLUTE AUTO 0.05 K/mm3 (0.00-0.10); IMMATURE GRAN PERCENT AUTO 0 % (0-1); LYMPHOCYTES ABSOLUTE AUTO 2.11 K/mm3 (0.84-5.20); LYMPHOCYTES PERCENT AUTO 17 % (21-46); MONOCYTES ABSOLUTE AUTO 1.54 K/mm3 (0.16-1.47); MONOCYTES PERCENT AUTO 12 % (4-13); Mean Corpuscular HGB 30.4 pg (26.0-34.0); Mean Corpuscular HGB Conc 32.1 g/dL (31.5-36.5); Mean Corpuscular Volume 95 fL (80-100); Mean Platelet Volume 10.8 fL (9.1-12.4); NEUTROPHILS ABSOLUTE AUTO 8.31 K/mm3 (1.96-9.15); NEUTROPHILS PERCENT AUTO 67 % (41-73); Platelet Count 235 K/mm3 (150-400); RDW Coefficient Variation 19.4 % (11.7-14.2); RDW Standard Deviation 67.1 fL (35.1-46.3); Red Blood Cell Count 2.53 M/mm3 (3.80-5.20); White Blood Cell Count 12.38 K/mm3 (4.00-11.30)
[2022-09-02 14:28] LABS: Albumin, Blood 2.7 g/dL (3.4-5.0); Albumin/Globulin Ratio 0.5 (0.8-1.8); Bilirubin, Direct 1.4 mg/dL (0.0-0.3); Bilirubin, Indirect 0.6 mg/dL (0.1-0.7); Bun/Creatinine Ratio 12.9 (12.0-20.0); Calcium, Blood 9.2 mg/dL (8.5-10.1); Creatinine, Blood 0.85 mg/dL (0.40-1.00); Globulin, Blood 5.3 g/dL (2.2-4.0); Potassium, Blood 3.4 mmol/L (3.5-5.5)
[2022-09-02 18:09] LABS: Hematocrit 21.1 % (33.0-51.0); Hemoglobin 6.8 g/dL (11.5-16.0); Mean Corpuscular HGB Conc 32.2 g/dL (31.5-36.5); Mean Corpuscular Volume 93 fL (80-100); Mean Platelet Volume 11.1 fL (9.1-12.4); Platelet Count 219 K/mm3 (150-400); RDW Coefficient Variation 19.4 % (11.7-14.2); RDW Standard Deviation 65.9 fL (35.1-46.3); Red Blood Cell Count 2.27 M/mm3 (3.80-5.20); White Blood Cell Count 12.12 K/mm3 (4.00-11.30)
[2022-09-02 19:39] LABS: Percent Saturation 13.8 % (15.0-50.0)
[2022-09-02 21:57] LABS: Influenza A, PCR NEGATIVE (NEGATIVE); Influenza B, PCR NEGATIVE (NEGATIVE); Resp Syncytial Virus, PCR NEGATIVE (NEGATIVE); SARS-Cov-2 (COVID-19) PCR, MMC NEGATIVE (NEGATIVE)
[2022-09-02 22:52] LABS: Source, Urine Clean Catch
[2022-09-02 22:54] LABS: Bilirubin, Urine Neg (Neg); Blood, Urine Neg (Neg); Glucose Qualitative, Urine Neg (Neg); Ketones, Urine 1+ (Neg); Leukocyte Esterase, Urine 1+ (Neg); Nitrite, Urine Neg (Neg); Protein, Urine 1+ (Neg); Urobilinogen, Urine NORM (Normal)
[2022-09-02 23:05] LABS: Amorphous Light (0-Heavy); Appearance, Urine Clear (Clear); Bacteria Few /hpf; Color, Urine Yellow (P-Yellow); Other Crystals Few /hpf; Red Blood Cells, Urine Not Seen /hpf (0-2); Squamous Epithelial Cells Few /hpf (Few); Uric Acid Crystals Few /hpf; White Blood Cells, Urine 0-2 /hpf (0-5)
[2022-09-02 23:39] LABS: Hematocrit 24.8 % (33.0-51.0); Hemoglobin 8.3 g/dL (11.5-16.0)
[2022-09-02 23:55] LABS: International Normalized Ratio 1.49; Prothrombin Time Results 15.2 Sec (9.7-11.5)
[2022-09-03 04:42] LABS: BASOPHILS ABSOLUTE AUTO 0.06 K/mm3 (0.00-0.23); BASOPHILS PERCENT AUTO 1 % (0-2); EOSINOPHILS ABSOLUTE AUTO 0.31 K/mm3 (0.00-0.68); EOSINOPHILS PERCENT AUTO 3 % (0-6); Hematocrit 24.7 % (33.0-51.0); IMMATURE GRAN ABSOLUTE AUTO 0.04 K/mm3 (0.00-0.10); IMMATURE GRAN PERCENT AUTO 0 % (0-1); LYMPHOCYTES ABSOLUTE AUTO 2.02 K/mm3 (0.84-5.20); LYMPHOCYTES PERCENT AUTO 20 % (21-46); MONOCYTES ABSOLUTE AUTO 1.38 K/mm3 (0.16-1.47); MONOCYTES PERCENT AUTO 14 % (4-13); Mean Corpuscular HGB 29.5 pg (26.0-34.0); Mean Corpuscular HGB Conc 32.4 g/dL (31.5-36.5); Mean Corpuscular Volume 91 fL (80-100); Mean Platelet Volume 10.7 fL (9.1-12.4); NEUTROPHILS ABSOLUTE AUTO 6.36 K/mm3 (1.96-9.15); NEUTROPHILS PERCENT AUTO 63 % (41-73); Platelet Count 195 K/mm3 (150-400); RDW Coefficient Variation 18.8 % (11.7-14.2); RDW Standard Deviation 62.7 fL (35.1-46.3); Red Blood Cell Count 2.71 M/mm3 (3.80-5.20); White Blood Cell Count 10.17 K/mm3 (4.00-11.30)
[2022-09-03 05:04] LABS: Albumin, Blood 2.4 g/dL (3.4-5.0); Albumin/Globulin Ratio 0.5 (0.8-1.8); Bilirubin, Total 2.4 mg/dL (0.1-1.0); Calcium, Blood 8.7 mg/dL (8.5-10.1); Creatinine, Blood 0.92 mg/dL (0.40-1.00); Globulin, Blood 5.1 g/dL (2.2-4.0); Magnesium, Blood 2.1 mg/dL (1.6-2.4); Potassium, Blood 3.6 mmol/L (3.5-5.5); Total Protein, Blood 7.5 g/dL (6.4-8.2)
--- NOTE | 2022-09-03 06:29 | NUR ---
SHIFT SUMMARY PT A&O X4; PT RESPONDING TO QUESTIONS APPROPRIATELY AND INTERACTING WITH STAFF. PT SMILING AND LAUGHING WITH STAFF. VS; SBP 1 TEENS - 120'S AND DBP IN 60'S, ST W/HR IN 100'S, TEMP 99.4 - 100.2, AND O2 93%-97% ON 2 L NC. PT DENIES DIZZINESS OR LIGHTHEADNESS. PT STATES SHE FEELS "TIRED". PT SLEPT ON AND OFF THROUGHOUT SHIFT. PUREWICK IN PLACE TO SUCTION. PT PASSED BM; FORMED AND SOFT, LIGHT YELLOW IN COLOR. IV'S PATENT AND INFUSING PER EMAR. PT DENIES PAIN, BUT REPORTS MINOR HEADACHE THAT HAS BEEN PRESENT SINCE THIS MORNING.
[2022-09-03 11:25] LABS: Hematocrit 24.8 % (33.0-51.0); Hemoglobin 8.1 g/dL (11.5-16.0)
[2022-09-03 16:20] LABS: Hematocrit 24.9 % (33.0-51.0); Hemoglobin 8.2 g/dL (11.5-16.0)
[2022-09-03 22:16] LABS: Hematocrit 25.6 % (33.0-51.0); Hemoglobin 8.3 g/dL (11.5-16.0)
[2022-09-04 05:05] LABS: PCO2 Arterial 33.2 mmHg (35-45); PO2 Arterial 47.9 mmHg (80-100); pH Blood Arterial 7.37 (7.35-7.45)
--- NOTE | 2022-09-04 06:43 | NUR ---
SHIFT SUMMARY PT A&0, RESPONDING APPROPRIATELY. PT MILDLY ANXIOUS AT BEGINNING OF SHIFT, STATES SHE WAS FEELING "OVERWHELMED" WITH EVERYTHING BUT IS NO STARTING TO CALM DOWN. PT THEN CALMED DOWN AND WAS SMILING AND INTERACTING WITH STAFF. VS; SBP 120'S, ST WITH HR IN 100'S - 1 TEENS; INCREASES TO 120-125 WITH MOVEMENT OR EXERTION. O2 SATS 91 - 95% ON 3 L NC. PT BRIEFLY DESATS WITH EXERTION BUT RECOVERS WELL AND IS ASYMPTOMATIC. PT PULLED NC OUT A FEW TIMES; O2 DECREASED TO 86-88%; RECOVERS WHEN NC REPLACED. PT REPORTS MILD SOB WHEN FEELING ANXIOUS OTHERWISE DENIES SOB. DENIES CHEST PAIN OR CHEST PRESSURE. PT REPORTS 6/10 PAIN IN ABD, LLQ. REPORTS SHARP, STABBING PAIN. MEDICATED PER EMAR. PT REPOSITIONED NEEDED WELL INDEPENDENTLY. PUREWICK IN PLACE. MINIMAL OUTPUT, URINE COLOR IS DARK-YELLLOW. PT RESTLESS DURING LAST HALF OF SHIFT. PT REPORTS NOT BEING ABLE TO FALL ASLEEP. PT ALSO HAD SEVERE ANXIETY ATTACK. HR INCREASED TO 130-140'S. PT REPORTS SEVERE ABD PAIN. PROVIDER NOTIFIED. NEW ORDERS FOR PRN ANXIETY AND PAIN MEDICATION PER EMAR. PT COMFORTED AND CALMING CONVERSTAION PROVIDED. PT RESPONDED WELL BUT TOOK ABOUT AN HOUR TO RECOVER FROM ATTACK. PT FINALLY CALMED AND RESTING IN BED.
[2022-09-04 08:20] LABS: BASOPHILS ABSOLUTE AUTO 0.13 K/mm3 (0.00-0.23); BASOPHILS PERCENT AUTO 1 % (0-2); EOSINOPHILS ABSOLUTE AUTO 0.12 K/mm3 (0.00-0.68); EOSINOPHILS PERCENT AUTO 1 % (0-6); Hematocrit 25.5 % (33.0-51.0); Hemoglobin 7.9 g/dL (11.5-16.0); IMMATURE GRAN ABSOLUTE AUTO 0.09 K/mm3 (0.00-0.10); IMMATURE GRAN PERCENT AUTO 1 % (0-1); LYMPHOCYTES ABSOLUTE AUTO 1.52 K/mm3 (0.84-5.20); LYMPHOCYTES PERCENT AUTO 8 % (21-46); MONOCYTES ABSOLUTE AUTO 2.62 K/mm3 (0.16-1.47); MONOCYTES PERCENT AUTO 14 % (4-13); Mean Corpuscular HGB 29.5 pg (26.0-34.0); Mean Corpuscular Volume 95 fL (80-100); Mean Platelet Volume 10.7 fL (9.1-12.4); NEUTROPHILS ABSOLUTE AUTO 13.78 K/mm3 (1.96-9.15); NEUTROPHILS PERCENT AUTO 76 % (41-73); Platelet Count 224 K/mm3 (150-400); RDW Coefficient Variation 18.3 % (11.7-14.2); RDW Standard Deviation 63.1 fL (35.1-46.3); Red Blood Cell Count 2.68 M/mm3 (3.80-5.20); White Blood Cell Count 18.26 K/mm3 (4.00-11.30)
[2022-09-04 08:38] LABS: Albumin, Blood 2.4 g/dL (3.4-5.0); Albumin/Globulin Ratio 0.5 (0.8-1.8); Bilirubin, Total 2.5 mg/dL (0.1-1.0); Calcium, Blood 8.9 mg/dL (8.5-10.1); Creatinine, Blood 0.81 mg/dL (0.40-1.00); Globulin, Blood 5.3 g/dL (2.2-4.0); Potassium, Blood 3.9 mmol/L (3.5-5.5); Total Protein, Blood 7.7 g/dL (6.4-8.2)
--- NOTE | 2022-09-04 13:34 | NUR ---
TRANSFER OF CARE: PT TRANSFERRED TO 359 REPORT GIVEN TO AQUILES ESCALANTE. NO ACUTE CHANGE FOR THE SHIFT PT STILL HAS ABD PAIN MEDICATED WITH DILAUDID X1 FOR THE SHIFT. VITALS HAS BEEN STABLE, INCREASE IN O2 DEMAND NOW ON 6L OF O2 VIA HIFLO SATS KEPT ABOVE 90%. PT WAS HAVING EPISODES OF ANXIETY TACH'S UP TO 120'S, PT WAS INSTRUCTED ABOUT DEEP BREATHING EXERCISES. AIRWAYS OPERATIONS SPECIALIST SAW PT TODAY ORDERED 40MG OF LASIX, WAS GIVEN PRIOR TO TRANSFER. PUREWICK REMAINED IN PLACE, NO REPORTED BM FOR THE SHIFT. PT WAS ABLE TO WORK WITH PT TODAY WAS ABLE TO STAND UP WITH THE LEG BOOT, PT TOLERATED. NO OTHER ISSUES REPORTED, CAME TO VISIT WAS GIVEN AN UPDATE REGARDING THE PT. TRANSFERRED VIA BED TELE KEPT IN PLACE
--- NOTE | 2022-09-04 19:10 | NUR ---
SHIFT SUMMARY PT TRANSFERED FROM PCU THIS AFTERNOON. PT ARRIVED BY BED AND WAS AT BEDSIDE. PT A&OX4 AND PLEASANT. PT C/O LLQ PAIN AND MEDICATED PER EMAR WITH GOOD EFFICACY. PT TOLERATING MEALS. PERWICK IN PLACE BUT PT IS ABLE TO USE BEDPAN. USES CALL LIGHT APPROPTIATELY. BED IN LOWEST POSITION AND CALL LIGHT IN REACH.
[2022-09-04 21:26] LABS: Vancomycin, Trough 27.6 ug/mL (5.0-10.0)
--- NOTE | 2022-09-04 23:58 | NUR ---
LAB CALLED CRITICAL VANCO LEVEL EARLIER, (ELEVATED), PHARM NOTIFIED AND MED ADJUSETD
--- NOTE | 2022-09-05 00:01 | NUR ---
PULSE OX ALARMING INTERMITTENTLY. O2 SATS DROPPING TO 87%. VOICED ANXIETY AND PAIN. ATIVAN AND DILAUDID ADMINISTERED, BUT STILL HAVING DROPS IN SATS. RT NOTIFIED AND RT IN ROOM TO ASSESS. CALL LIGHT IN REACH
--- NOTE | 2022-09-05 03:22 | NUR ---
MEDICAL LABORATORY TECHNOLOGIST SUMMARY AWAKE AT INTERVALS WITH VOICED ANXIETY. RECEIVED IV ATIVAN AND DILAUDID PER JAN, STILL HAVING SOME ANXIETY. O2 SATS DROPPED, RT NOTIFIED AND O2 INCREASED. HOB ELEVATED FOR COMFORT, NOTE PT SEEMS TO BE MOUTH BREATHER, RT NOTIFIED. PT ENCOURAGED TO BREATHE THROUGH NOSE UNTIL RT CAN ARRANGE ALTERNATIVES. RESTING QUIETLY AT THIS TIME. VSS. CALL LIGHT IN REACH. WILL CONTINUE TO MONITOR
[2022-09-05 05:07] LABS: BASOPHILS ABSOLUTE AUTO 0.08 K/mm3 (0.00-0.23); BASOPHILS PERCENT AUTO 0 % (0-2); EOSINOPHILS ABSOLUTE AUTO 0.03 K/mm3 (0.00-0.68); EOSINOPHILS PERCENT AUTO 0 % (0-6); Hematocrit 24.3 % (33.0-51.0); Hemoglobin 7.7 g/dL (11.5-16.0); IMMATURE GRAN ABSOLUTE AUTO 0.16 K/mm3 (0.00-0.10); IMMATURE GRAN PERCENT AUTO 1 % (0-1); LYMPHOCYTES ABSOLUTE AUTO 1.23 K/mm3 (0.84-5.20); LYMPHOCYTES PERCENT AUTO 6 % (21-46); MONOCYTES ABSOLUTE AUTO 2.41 K/mm3 (0.16-1.47); MONOCYTES PERCENT AUTO 11 % (4-13); Mean Corpuscular HGB 29.6 pg (26.0-34.0); Mean Corpuscular HGB Conc 31.7 g/dL (31.5-36.5); Mean Corpuscular Volume 94 fL (80-100); NEUTROPHILS PERCENT AUTO 82 % (41-73); Platelet Count 201 K/mm3 (150-400); RDW Coefficient Variation 18.1 % (11.7-14.2); RDW Standard Deviation 62.1 fL (35.1-46.3); White Blood Cell Count 21.51 K/mm3 (4.00-11.30)
[2022-09-05 05:30] LABS: Anion Gap 10 mmol/L (6-16); Blood Urea Nitrogen 17 mg/dL (8-24); Bun/Creatinine Ratio 20.7 (12.0-20.0); CO2, Blood 20 mmol/L (21-32); Calcium, Blood 8.8 mg/dL (8.5-10.1); Chloride, Blood 107 mmol/L (98-108); Creatinine, Blood 0.82 mg/dL (0.40-1.00); Glomerular Filtration Rate 88 (60-); Glucose, Blood 107 mg/dL (70-99); Potassium, Blood 3.6 mmol/L (3.5-5.5); Sodium, Blood 137 mmol/L (136-145); Vancomycin, Random 21.8 ug/mL
--- NOTE | 2022-09-05 08:00 | NUR ---
pt laying in bed watching tv, pleasant and cooperative with care, is very anxious, follows commands well, denies pain, just feels sob, lungs are course in bases, dim t/o, resp even with some laboring noted, is currently on 6 liters 02 via n/c, no cough noted at this time, she does report bringing up a very small amount of sputum, hrr, tele in place running st in the oneteens, no activity tolerance due to breathing, iv sites are clear and patent, btx4, abd flat soft nontender, briefs in place, skin ok, maew, weak, ruby, call light in reach.
--- NOTE | 2022-09-05 10:10 | NUR ---
pt having a panic attack, really struggling to breath, after calling pharmacy for ativan stayed with her helping her to focus on slowing her breathing down, gave one mg ativan as soon as available, she calmed some but felt didn't get enough relief from it. is doing some better though, brought her an I.S. to work with. call light in reach.
--- NOTE | 2022-09-05 15:28 | NUR ---
Upon receiving a referral for spiritual care, I visit pt. Pt is sleeping for most of the visit. I speak with pt's spouse, Wagner. He explains about the events that led to her hospitalization, the conflicting messages he feels he is getting from different doctors and how wonderful [facility] has been so far (attentive staff, skilled PT, OT staff and good range of motion throughout the facility via whellchair). Pt is awake enough to allow for prayer to be said and hugs to be given before she returns to sleep. Pt and Wagner respond well and show signs of elevated mood. I will continue to remain available to pt and family.
--- NOTE | 2022-09-05 19:12 | NUR ---
pt has been better this after noon with anxiety, started her on atarax that seemed to be pretty helpful, no further changes this shift, call light in reach.
--- NOTE | 2022-09-06 01:41 | NUR ---
PHYSICIAN COMMUNICATION CONTACTED DR DINERO TO NOTIFY HER OF PATIENT'S CHANGE IN STATUS. PATIENT WAS INCREASED FROM 10 LITERS O2 VIA HIGH FLOW NASAL CANULA TO 15 LITERS VIA NONREBREATHER, PATIENT WORKING HARD TO BREATHE WITH ACCESSORY MUSCLE USE AND HEART RATE SUSTAINING IN THE 120'S. LUNGS COARSE T/O. DR DINERO ORDERED FOR THE PATIENT TO BE MOVED TO PCU AND ADMINISTER [address] DINERO CAME TO PATIENT'S ROOM TO ASSESS PATIENT. PCU NURSE TRANSFERRED PATIENT TO PCU.
[2022-09-06 01:44] LABS: BASOPHILS ABSOLUTE AUTO 0.06 K/mm3 (0.00-0.23); BASOPHILS PERCENT AUTO 0 % (0-2); EOSINOPHILS ABSOLUTE AUTO 0.03 K/mm3 (0.00-0.68); EOSINOPHILS PERCENT AUTO 0 % (0-6); Hematocrit 25.6 % (33.0-51.0); Hemoglobin 8.6 g/dL (11.5-16.0); IMMATURE GRAN ABSOLUTE AUTO 0.31 K/mm3 (0.00-0.10); IMMATURE GRAN PERCENT AUTO 1 % (0-1); LYMPHOCYTES ABSOLUTE AUTO 1.53 K/mm3 (0.84-5.20); LYMPHOCYTES PERCENT AUTO 6 % (21-46); MONOCYTES ABSOLUTE AUTO 2.67 K/mm3 (0.16-1.47); MONOCYTES PERCENT AUTO 10 % (4-13); Mean Corpuscular HGB 31.3 pg (26.0-34.0); Mean Corpuscular HGB Conc 33.6 g/dL (31.5-36.5); Mean Corpuscular Volume 93 fL (80-100); Mean Platelet Volume 10.8 fL (9.1-12.4); NEUTROPHILS ABSOLUTE AUTO 22.43 K/mm3 (1.96-9.15); NEUTROPHILS PERCENT AUTO 83 % (41-73); Platelet Count 259 K/mm3 (150-400); RDW Coefficient Variation 18.3 % (11.7-14.2); RDW Standard Deviation 62.4 fL (35.1-46.3); Red Blood Cell Count 2.75 M/mm3 (3.80-5.20); White Blood Cell Count 27.03 K/mm3 (4.00-11.30)
[2022-09-06 01:59] LABS: Bun/Creatinine Ratio 23.7 (12.0-20.0); Calcium, Blood 9.2 mg/dL (8.5-10.1); Creatinine, Blood 0.85 mg/dL (0.40-1.00); Potassium, Blood 3.3 mmol/L (3.5-5.5)
[2022-09-06 02:43] LABS: PCO2 Arterial 38.4 mmHg (35-45); pH Blood Arterial 7.34 (7.35-7.45)
[2022-09-06 04:09] LABS: Adenovirus Not Detected (NOT DETECT); Bordetella pertussis Not Detected (NOT DETECT); Chlamydophila pneumoniae Not Detected (NOT DETECT); Coronavirus 229E Not Detected (NOT DETECT); Coronavirus HKU1 Not Detected (NOT DETECT); Coronavirus NL63 Not Detected (NOT DETECT); Coronavirus OC43 Not Detected (NOT DETECT); Human Metapneumovirus Not Detected (NOT DETECT); Human Rhinovirus/Enterovirus Not Detected (NOT DETECT); Influenza A/2009-H1 Not Detected (NOT DETECT); Influenza A/H1 Not Detected (NOT DETECT); Influenza A/H3 Not Detected (NOT DETECT); Influenza B Not Detected (NOT DETECT); Mycoplasma pneumoniae Not Detected (NOT DETECT); Parainfluenza Virus 1 Not Detected (NOT DETECT); Parainfluenza Virus 2 Not Detected (NOT DETECT); Parainfluenza Virus 3 Not Detected (NOT DETECT); Parainfluenza Virus 4 Not Detected (NOT DETECT); Respiratory Syncytial Virus Not Detected (NOT DETECT); SARS-Cov-2 (COVID-19), BioFire Not Detected (NOT DETECT)
--- NOTE | 2022-09-06 06:13 | NUR ---
0145 - THIS RN RECEIVED BEDSIDE REPORT AND TRANSFERED PT WITH BLADDER CLEANER TO PCU-03 FROM [facility]. VS OBTAINED. PT TACHYPNEIC W/RETRACTIONS AND INCREASED WORK OF BREATHING. RT TO BEDSIDE AND PT PLACED ON HFNC @ 50L AND 75%. PT REFUSING BIPAP. DR. DINERO NOTIFIED OF PT REFUSAL. IV ATIVAN GIVEN TO SEE IF PT COULD TOLERATE. PT CONTINUES TO REFUSE. 40MG IV LASIX GIVEN, 40 MEQ IV POTASSIUM STARTED FOR K+ OF 3.3. CT PE STUDY ORDERED. HGB 8.6 AND UNIT OF BLOOD CANCELLED PER ROSETTE. 4015 - PT TRANSPORTED WITH PORTABLE MONITOR, THIS RN AND BLADDER CLEANER TO CT FOR PE STUDY. PT TOLERATED POORLY, ESPECIALLY WHEN LAYING DOWN. PE STUDY COMPLETE AND PT RETURNED TO ROOM. RESPIRATORY RATE INCREASED TO 30S, WORK OF BREATHING INCREASED. RT TO ROOM. ICU CHARGE - MAGNUS TO ROOM AND DR. DINERO CALLED AND UPDATED. ORDER FOR ICU TRANSFER RECEIVED. 0545 - BEDSIDE REPORT GIVEN TO LUIS RN AND PT TRANSFERRED TO ICU 13. PT NEFTALY MANN CALLED AND UPDATED.
--- NOTE | 2022-09-06 06:34 | NUR ---
PT. CAME OVER FROM PCU AT 6 THIS AM. PT. CAME PREEMPTIVELY FOR RESPIRATORY DISTRESS AND IS CURRENTLY ON HIGH FLOW AT 65L AND 90%. BREATH SOUNDS ARE CRACKLES BILATERALLY AND PT. IS WORKING TO BREATHE. PT. IS A&O AND IS ABLE TO ANSWER ALL QUESTIONS APPROPRIATELY. SHE IS IN SINUS TACH IN THE 120S AND BP IS WNL. PT. IS HAVING ANXIETY AND IS NOW ON PRECEDEX AT 0.4, WHICH SEEMS TO BE HELPING CALM HER. NURSE EDUCATED PT. THAT A BIPAP WILL BE NECESSARY AND THE PT. SEEMS AGREEABLE TO BIPAP. NURSE BROUGHT UP THE QUESTION OF IF THE PATIENT WISHES TO BE INTUBATED IF THE BIPAP WAS UNSUCCESSFUL AND PT. ASKED TO SPEAK WITH BEFORE ANY DECISIONS WERE MADE. IS ON THE WAY TO HOSPITAL.
--- NOTE | 2022-09-06 07:30 | NUR ---
Patient is sitting up in bed and resting. Pt's spouse, Wagner is bedside. Wagner tells me about the events of the morning from his perspective. He talks about his frustration with the ups and downs of her medical conditions. He admits to worry and wonders if out loud if he should transfer pt to another facility. I speak about pt's frail state and about trusting the process. I provide therapeutic listening and a calming presence. Wagner responds well and shows signs of a decrease in stress. I will contnue to remain available to pt and family.
--- NOTE | 2022-09-06 09:47 | NUR ---
ASSUMED CARE REPORT FROM LUIS ESCALANTE AT 0700. PT RESTING IN BED, FAMILY AT BEDSIDE. DROWSY, RESPONSES TO VERBAL STIMULI. A&OX 3. FOLLOWS COMMANDS. RETURNS TO SLEEP WHEN UNDISTURBED. PRECEDEX GTT FOR SEDATION, TITRATED DOWN. LUNGS COARSE THROUGHOUT. AIRVO 50-80%. SR ON MONITOR, RATE 110'S. BP STABLE. 2+ EDEMA IN BLE. WILL CONTINUE TO MONITOR.
[2022-09-06 10:53] LABS: Source, Urine Foley catheter
[2022-09-06 10:58] LABS: Appearance, Urine Clear (Clear); Bilirubin, Urine Neg (Neg); Blood, Urine Neg (Neg); Color, Urine Yellow (P-Yellow); Glucose Qualitative, Urine Neg (Neg); Ketones, Urine Neg (Neg); Leukocyte Esterase, Urine Neg (Neg); Nitrite, Urine Neg (Neg); Protein, Urine Neg (Neg); Urobilinogen, Urine NORM (Normal)
--- NOTE | 2022-09-06 13:55 | NUR ---
I spend over 15 minutes with pt as she explains about how tired and scared that she is. She states that she feels like she is on a roller coaster with many highs and lows. She states she and her Wagner were adverse to having her intubated again if things got worse because of how she has been unable to recover well from the last time (I later mention this information to pt's RN knowing that the pt has been somewnat confused and that she should confirm this with Wagner before changing code status). I provide therapeutic listeniing, gentle dianetic counselor and prayer. Pt responds well and shows signs of being encouraged in her hope and nirmala.
--- NOTE | 2022-09-06 17:36 | NUR ---
SHIFT SUMMARY PT REMAINS IN AIRVO, 50L/80%. O2 SATS MID 90'S. LUNGS COARSE THROUGHOUT. NON PRODUCTIVE COUGH. SPEAKING IN SHORT SENTANCES. OCCASIONALLY ANXIOUS, ABLE TO REDIRECT, PRECEDEX GTT AT 0.2 MCG/KG/HR. SLEEPS WHEN UNDISTURBED, WAKES c VERBAL STIMULI, OCCASIONALLY CONFUSED BUT REDIRECTABLE. FOLLOWS COMMANDS. MEDICATED c DILAUDID FOR PAIN TO LEFT ABD. CASANOVA PLACED THIS SHIFT, 300 ML CLEAR YELLOW URINE OUT. DISCUSSED CODE STATUS c PT AND , GIRMA. BOTH WANTED PT INTUBATED ONLY IN LIFE THREATENING EMERGENCIES. PT REMAINS FULL CODE.
[2022-09-07 03:50] LABS: BASOPHILS ABSOLUTE AUTO 0.06 K/mm3 (0.00-0.23); BASOPHILS PERCENT AUTO 0 % (0-2); EOSINOPHILS ABSOLUTE AUTO 0.12 K/mm3 (0.00-0.68); EOSINOPHILS PERCENT AUTO 1 % (0-6); Hematocrit 25.3 % (33.0-51.0); Hemoglobin 7.7 g/dL (11.5-16.0); IMMATURE GRAN ABSOLUTE AUTO 0.41 K/mm3 (0.00-0.10); IMMATURE GRAN PERCENT AUTO 2 % (0-1); LYMPHOCYTES PERCENT AUTO 6 % (21-46); MONOCYTES PERCENT AUTO 6 % (4-13); Mean Corpuscular HGB 29.5 pg (26.0-34.0); Mean Corpuscular HGB Conc 30.4 g/dL (31.5-36.5); Mean Corpuscular Volume 97 fL (80-100); Mean Platelet Volume 11.5 fL (9.1-12.4); NEUTROPHILS ABSOLUTE AUTO 20.65 K/mm3 (1.96-9.15); NEUTROPHILS PERCENT AUTO 86 % (41-73); Platelet Count 189 K/mm3 (150-400); RDW Coefficient Variation 18.2 % (11.7-14.2); RDW Standard Deviation 64.3 fL (35.1-46.3); Red Blood Cell Count 2.61 M/mm3 (3.80-5.20); White Blood Cell Count 24.14 K/mm3 (4.00-11.30)
--- NOTE | 2022-09-07 03:57 | NUR ---
PT. HAD DESATURATION EPISODE AND RT WAS CALLED TO BEDSIDE. PT. PLACED ON BIPAP WHEN SHE WAS UNABLE TO RECOVER FROM SATTING IN THE LOW 80S. PT. SATTING 100% ON BIPAP AT THIS TIME.
[2022-09-07 04:26] LABS: Albumin, Blood 2.1 g/dL (3.4-5.0); Albumin/Globulin Ratio 0.4 (0.8-1.8); Bilirubin, Total 1.9 mg/dL (0.1-1.0); Bun/Creatinine Ratio 32.5 (12.0-20.0); Calcium, Blood 9.8 mg/dL (8.5-10.1); Creatinine, Blood 0.98 mg/dL (0.40-1.00); Globulin, Blood 5.3 g/dL (2.2-4.0); Potassium, Blood 3.8 mmol/L (3.5-5.5); Total Protein, Blood 7.4 g/dL (6.4-8.2)
--- NOTE | 2022-09-07 05:31 | NUR ---
SHIFT SUMMARY: PT. HAD A DESATURATION EPISODE OVERNIGHT AND WAS PLACED ON CPAP FOR LOW SATURATION AND DECLINE IN MENTATION. PT. IS SATTING 96% ON CPAP. LUNG SOUNDS HAVE LESS CRACKLES THAN LAST NIGHT BUT ARE MORE COURSE. PT. HAS BEEN SINUS TACH THROUGHOUT THE NIGHT 100-120S. BP HAS REMAINED STABLE. PT. HAD 280 UOP FROM CASANOVA AND HAS NOT HAD A BOWEL MOVEMENT. PT. IS STILL ON PRECEDEX WHICH HAD TO BE UPPED TO 0.3 BUT IS NOW RESTING COMFORTABLY WITH CPAP ON, AND CALL LIGHT IN REACH.
--- NOTE | 2022-09-07 07:12 | NUR ---
0700 ASSESSMENT-PT EXTREMELY ANXIOUS. ORIENTED TO SELF AND FOLLOWING SOME COMMANDS. PT IS ORTHOPNEIC AND AIR HUNGER NOTED. SATS DOWN TO 80'S.RR 32 AND LABORED. PT PULLING AT LINES AND AIRVO-PRECEDEX DRIP TITRATED UP AND FIO2 INCREASED TO 100%. ECG SHOWS ST WITH RATE 120-130'S. BP 144/79. DP/PT PULSES FAINT-2+ GENEALIZED EDEMA NOTED. PT NPO DUE RESPIRATORY DISTRESS-ORAL CARE DONE PT ORAL MUCOSA IS EXTREMELY DRY. ABDOMEN IS DISTENDED AND SEMI-FIRM WITH HYPOACIVE BT'S X 4. NO S/S OF ACUTE GIB. SKIN IS PALE, COOL, AND DIAPHORETIC. CASANOVA TO BSD WITH SCANT AMOUNT OF DARK, YELLOW URINE TO UROMETER.
--- NOTE | 2022-09-07 07:21 | NUR ---
PT APPEARS LESS RESTLESS AT THIS TIME-PRECEDEX @ 0.7 MCG/KG/HR. SATS> 90% ON AIRVO 60 LITERS/FIO2 90%.
--- NOTE | 2022-09-07 08:30 | NUR ---
PT APPEARS LESS ANXIOUS, RESTLESS, AND SLIGHTLY LESS TACHYPNEIC. PT WAS MEDICATED FOR COMPLAINT OF 7/10 LEFT RIB PAIN WITH DILAUDID 1 MG IVP-SEE EMAR. DR. MANUEL IN TO SEE PT-UPDATE GIVEN. ABG AND CXR ORDERED.
[2022-09-07 08:35] LABS: PCO2 Arterial 39.4 mmHg (35-45); PO2 Arterial 71.9 mmHg (80-100); pH Blood Arterial 7.31 (7.35-7.45)
--- NOTE | 2022-09-07 09:16 | NUR ---
PT SPOUSE GIRMA UPDATED TO CURRENT STATUS AND PLAN OF CARE. ABG AND CXR RESULTS ARE STILL PENDING.
--- NOTE | 2022-09-07 10:30 | NUR ---
PT RESTING QUIETLY ON BIPAP 08/18-FIO2 60%-PRECEDEX DECREASED 0.5 MCG/KG/HR. PT SPOUSE IN FOR VISIT-REQUESTING UPDATE FROM
--- NOTE | 2022-09-07 10:53 | NUR ---
MAP TRENDING 50'S AND PT RESTING ON BIPAP-TITRATED DOWN TO 0.4 MCG/KG/HR.
--- NOTE | 2022-09-07 11:04 | NUR ---
NS 1000 ML BOLUS INIIIATED -MAP STILL TRENDING 50'S.
--- NOTE | 2022-09-07 11:30 | NUR ---
Spiritual care visit conducted. Pt is resting, pt's spouse, Wagner is bedside. He talks about his frustrations about feeling like he does not get adequate answers as to why the pt is in the state that she is and what might be the cause. I of course, defer medical questions to the staff (I later tell pt's RN that Wagner would like to speak to her Physician). I provide therapeutic listening, gentle genetic counsellor and prayer. Wagner responds well and displays evidence of a reduction in stress.
--- NOTE | 2022-09-07 12:00 | NUR ---
PT AWAKENED AND STARTED THRASHING IN THE BED. PT YELLING INTO BIPAP MASK "GET IT OFF!" PT GIVEN BREAK FROM BIPAP AND PLACED ON AIRVO 70L/90% RR 38 AND SATS DROPPED TO LOW 80'S.PT VERY ORTHOPNEIC, TACHYPNEIC, AND DYSPNEIC. LUNGS WITH CRACKLES THROUGH OUT. APPEARS VERY AGGITATED-TITRATED PRECEDEX UP TO 0.5 MCG/KG/HR. PT MOANING AND REPORTS THAT SHE HAS 7/10 LEFT "RIB" PAIN-MED WITH DILAUDID 1 MG IVP-SEE EMAR. BIPAP MASK REPLACED AFTER ORAL CARE DONE. PT TOLERATING BIPAP-10/6 AND FIO2 75%.SBP 130'S. BED BATH GIVEN AND LINEN CHANGED-TOLERATED WELL. PT SPOUSE LEFT FOR A COUPLE OF HOURS AND WILL RETURN THIS AFTERNOON. RN TO CONTACT HIM IF ANY ACUTE CHANGES.
--- NOTE | 2022-09-07 16:15 | NUR ---
DR. BANDA IN TO SEE PT. UPDATE GIVEN. ECHO IN PROGRESS. 1ST DOSE OF COREG GIVEN-SEE EMAR.
--- NOTE | 2022-09-07 16:30 | NUR ---
PT AWAKENED TO VERBAL STIMULI AND IMMEDIATELY STARTED PULLING ON BIPAP MASK, GOWN, ECG ELECTRODES, AND OTHER ICU EQUIPMENT. PT ORIENTED TO SELF AND FOLLOWING SOME COMMANDS. PT GRIMACING, MOANING, AND TACHYPNEIC. WHEN ASKED IF IN PAIN, PT STATED "YES" PT INDICATING THAT SHE IS HAVING PAIN TO LEFT RIB AREA. MED WITH DILAUDID 1 MG IVP X 1. PRECEDEX DRIP RESUMED @ 0.3 MCG/KG/HR. ECG CONTINUES ST WITH RATE 110'S-120'S. MAP 70'S. LUNGS WITH CRACKLES THROUGH OUT. ORAL CARE DONE-TOLERATED WELL. PT TOLERATING BIPAP 10/6 WITH FIO2 60% SATS>90%. PT DESATS WITH BOTH ANXIETY AND EXERTION. PT HAS HAD NO EMESIS OR BM TODAY. NO SIGNS OF ACTIVE GIB. URINE OUTPUT REMAINS POOR.
--- NOTE | 2022-09-07 17:43 | NUR ---
ST CHANGES NOTED ON TELE IN II, III, AND AVF-12 LEAD ECG DONE. INTAKE 1354 VS 225 OUT THIS SHIFT.
--- NOTE | 2022-09-07 17:59 | NUR ---
DR. MANUEL MADE AWARE OF ST CHANGES. UPDATED TO I&O-NS 1 LITER BOLUS ORDERS. MD TO REVIEW ECG AND CONSULT CARDIOLOGY IF NEEDED.
--- NOTE | 2022-09-07 18:25 | NUR ---
CMP, MG, PHOS, CA+, TROPONIN, LACTIC ACID-DRAWN AND SENT TO LAB. NS BOLUS INFUSING. WILL CHANGE MAINTENANCE SBP 100'S-NITRO 1 INCH HELD.
[2022-09-07 19:05] LABS: Albumin/Globulin Ratio 0.4 (0.8-1.8); Bilirubin, Total 1.7 mg/dL (0.1-1.0); Bun/Creatinine Ratio 29.9 (12.0-20.0); Calcium, Blood 9.5 mg/dL (8.5-10.1); Creatinine, Blood 1.27 mg/dL (0.40-1.00); Globulin, Blood 5.1 g/dL (2.2-4.0); Magnesium, Blood 1.7 mg/dL (1.6-2.4); Phosphorus, Blood 4.7 mg/dL (2.5-4.9); Potassium, Blood 3.8 mmol/L (3.5-5.5); Total Protein, Blood 7.1 g/dL (6.4-8.2)
--- NOTE | 2022-09-08 05:17 | NUR ---
PT ALERT TO SELF, FOLLOWS SIMPLE COMMANDS BUT ANXIOUS AND CONSTANTLY PULLING AT BIPAP TO REMOVE. PT ON PRECEDEX DRIP AND GIVEN PRN ATIVAN FOR ANXIETY. BUE SOFT RESTRAINTS APPLIED TO PREVENT PT FROM PULLING OFF BIPAP. GIVEN PRN DILAUDID FOR PAIN VS REMAIN UNCHANGED. REMAINS ON BIPAP AT 50% WITH CRACKLES THROUGHOUT LUNGS. INFORMED MD OF DECREASED URINE OUTPUT DESPITE 1L NS BOLUS AND CONTINUOUS IV FLUIDS INFUSING. INTAKE - 2520 ML AND OUTPUT 65 ML.
--- NOTE | 2022-09-08 07:54 | NUR ---
PT OPENS EYES TO VOICE-SCLERAL JAUNDICE AND EDEMA NOTED. PT BECOMES VERY RESTLESS WITH NOXIOUS STIMULI. PT REACHES FOR BIPAP MASK WHEN NOT RESTRAINED AND IS UNABLE TO FOLLOW COMMANDS AT THIS TIME. PRECEDEX DRIP @ 0.3 MCG/KG/HR. ECG SHOWS ST WITH RATE 110'S. GENERALIZED EDEMA NOTED. DP/PT PULSES FAINT. MAP TRENDING>65. LUNGS WITH CRACKLES THROUGH OUT AND DIMINISHED IN THE BASES. SATS>90% ON BIPAP 10/6-FIO2 50%. NO NOTED COUGH. TACHYPNEIC WITH STIMULI. NPO. NO S/S OF ACUTE GIB. URINE OUTPUT VERY POOR OVER NIGHT.PT SPOUSE UPDATED TO EVENTS OVER NIGHT. CONSENT OBTAINED FOR PICC LINE PLACEMENT. MR. BARBA VERBALIZES THAT HE WANTS "EVERYTHING DONE" TO SAVE HIS . ALSO, HE DID STATE THAT HE IS CONCERNED THAT "SHE MIGHT NOT MAKE IT OUT OF HERE THIS TIME."
[2022-09-08 08:21] LABS: Hematocrit 23.9 % (33.0-51.0); Hemoglobin 7.4 g/dL (11.5-16.0); Mean Corpuscular HGB 30.6 pg (26.0-34.0); Mean Corpuscular Volume 99 fL (80-100); Mean Platelet Volume 11.6 fL (9.1-12.4); NRBC ABSOLUTE 0.02 K/mm3 (0.00-0.02); NRBC Auto 0.1 /100 WBC (0.0-0.2); Platelet Count 244 K/mm3 (150-400); RDW Coefficient Variation 18.5 % (11.7-14.2); RDW Standard Deviation 66.5 fL (35.1-46.3); Red Blood Cell Count 2.42 M/mm3 (3.80-5.20)
[2022-09-08 08:35] LABS: Albumin/Globulin Ratio 0.4 (0.8-1.8); Bilirubin, Total 1.8 mg/dL (0.1-1.0); Bun/Creatinine Ratio 26.1 (12.0-20.0); Calcium, Blood 9.4 mg/dL (8.5-10.1); Creatinine, Blood 1.65 mg/dL (0.40-1.00); Globulin, Blood 5.1 g/dL (2.2-4.0); Potassium, Blood 3.9 mmol/L (3.5-5.5); Total Protein, Blood 7.1 g/dL (6.4-8.2)
--- NOTE | 2022-09-08 08:39 | NUR ---
DR. MANUEL IN TO SEE PT. UPDATE GIVEN. DR. ALDRIDGE CONSULTED-DR. ALDRIDGE NOTIFIED BY THIS RN.
--- NOTE | 2022-09-08 09:21 | NUR ---
PT IS VERY LETHARGIC AND VERY DIFFICULT TO AROUSE. RESPIRATION ARE AUDIBLY MOIST. PRECEDEX DRIP ON STANDBY. TYPE AND CROSS DRAWN AND SENT TO LAB. WILL UPDATE DR. MANUEL.
--- NOTE | 2022-09-08 09:35 | NUR ---
DR. MANUEL UPDATED THAT PT IS NONRESPONSIVE OFF OF SEDATION. RESPIRATIONS 10-12/MIN, AND AUDIBLY MOIST. STAT ABG ORDERED.
[2022-09-08 09:56] LABS: PCO2 Arterial 57.5 mmHg (35-45); PO2 Arterial 69.3 mmHg (80-100); pH Blood Arterial 7.03 (7.35-7.45)
--- NOTE | 2022-09-08 10:00 | NUR ---
ABG RESULTS REVIEWED WITH DR. MANUEL. MAP TRENDING <60-LEVOPHED DRIP INITIATED @ 5 MCG/MIN. 2 AMPS BICARB GIVEN-SEE EMAR.
--- NOTE | 2022-09-08 11:11 | NUR ---
RSI: DR. MANUEL AT BEDSIDE. PT MED WITH ETOMIDATE 20 MCG IVP AND RECURONIUM 50 MG @ 1027. PT INTUBATED WITH 7.5 ETT-24 @ LIP-COLOR CHANGE @ 1029. PLACEMENT CONFIRMED BY CXR @ 1030. AIR WAY NOTED TO HAVE A LARGE AMOUNT OF BRIGHT RED BLOOD AND CLOTS. DR. MANUEL SUSPECTS POSSIBLE ESOPHAGEAL-NO OGT PLACED. WILL UPDATE DR. DEWEY. VENT SETTINGS: AC 20, TV 400, PEEP 8, FIO2 100%. PT MED WITH VERSED 4 MG IVP X 1 FOR SEDATION FOLLOWED BY VERSED DRIP @ 4 MG/HR. BICARB DRIP INITIATED-SEE EMAR. ATTEMPTED TO NOTIFY PT SPOUSE OF INTUBATION. MESSAGE LEFT ON VOICEMAIL.
--- NOTE | 2022-09-08 13:43 | NUR ---
PICC LINE WITHDRAWN 4 CM TO TOTAL OF [address] MANUEL AFTER EPISODE OF V. TACH
[2022-09-08 14:11] LABS: Hematocrit 21.8 % (33.0-51.0); Hemoglobin 6.9 g/dL (11.5-16.0)
[2022-09-08 14:22] LABS: Albumin, Blood 2.4 g/dL (3.4-5.0); Albumin/Globulin Ratio 0.5 (0.8-1.8); Bilirubin, Total 2.2 mg/dL (0.1-1.0); Bun/Creatinine Ratio 25.6 (12.0-20.0); Calcium, Blood 9.2 mg/dL (8.5-10.1); Creatinine, Blood 1.8 mg/dL (0.40-1.00); Globulin, Blood 5.2 g/dL (2.2-4.0); Magnesium, Blood 1.7 mg/dL (1.6-2.4); Potassium, Blood 3.8 mmol/L (3.5-5.5); Total Protein, Blood 7.6 g/dL (6.4-8.2)
--- NOTE | 2022-09-08 14:54 | NUR ---
Received call from Primary RN Dianne reporting Pt's condition is rapidly declining and is requesting assistance with contacting spouse. Karina Tim is able to contact Pt's spouse Shane. Edward updated by Karina and this RN discusses code status wishes. Wagner reports Pt is a DNR. Spoke with Dr Ervin and discussed case. Pt's spouse Wagner arrives to Pt's room with [employer] [facility] providing spiritual care. Wagner reports plan is to withdraw care when niece arrives. Offered emotional support. Dr Ervin into room to provide update. Dr Ervin in agreement. Placed order for comfort care and comfort care order set per V/O from Dr Ervin.
--- NOTE | 2022-09-08 16:02 | NUR ---
1300-DR. DEWEY AT BEDSIDE. UPDATE GIVEN. 1 UNIT PRBC'S COMPLETE. ECG SHOWS ST WITH RATE 100'S. MAP >60 WITH LEVOPHED @ 20 MCG/MIN AND VASOPRESSIN @ 0.04 UNITS/MIN. DR. MANUEL AT BEDSIDE TO CONSULT WITH DR. DEWEY WELL. LIANG RIVERA ATTEMPTING TO CONTACT PT SPOUSE GIRMA IN ORDER TO OBTAIN INFORMED CONSENT FOR EGD. DAY SURGERY STAFF AT BEDSIDE SETTING UP FOR ECG. PROTONIX DRIP @ 8 MG/HR AND SANDOSTATIN DRIP INFUSING 50 MCG/HR. 1310-INFORMED CONSENT OBTAINED FROM PT SPOUSE FOR EGD. 1315- VENT PEAK PRESSURE 45-50. ETT SUCTION PRODUCTIVE OF LARGE AMOUNT OF OLD, BLOODY CLOTS. PARRIS, RT AT BEDSIDE. PROPOFOL DRIP INITIATED @ 25 MCG/KG/HR.1325-PT POSITIONED TO LEFT SIDE IN PREP FOR EGD. RUNS OF VTACH NOTED TO MONITOR-DEFIB PADS PLACED. PT REPOSITIONED SUPINE WITH BACK BOARD IN PLACE.1330- MED WITH AMIODARONE 150 MG BOLUS IV X [address] MANUEL ORDER. EGD POSTPONED. PEAK PRESSURES 45-50'S AND SATS 70'S. PEEP TITRATED UP TO 12. RT ATTEMPTING TO BAG PT. SATS DROPPED TO 50'S. 1342-PICC PULLED OUT 4 CM. CXR DONE. 1344- BRONCH DONE WITH BAL-SATS 70'S ON FIO2 100%. BAL SENT FOR GRAM STAIN,CULTURE, SENSITIVITY, AND FUNGAL CULTURE. 1400-PT SPOUSE CONTACTED BY [facility]. PT SPOUSE EXPRESSING THAT HE WOULD LIKE PT TO BE DNR AND IS CONSIDERING WITHDRAWL OF CARE. 1445- IN TO SPEAK WITH PT SPOUSE AND THE DECISION WAS MADE TO MAKE PT COMFORT CARE. 1500 RESTRAINTS DISCONTINUED. PT MED WITH MORPHINE AND ATIVAN FOR PAIN, AIR HUNGER, AND ANXIETY-SEE EMAR. 1505-PT EXTUBATED TO RA. VASOPRESSORS AND IVF DISCONTINUED. PT SPOUSE AT BEDSIDE. PT @ 1515. FINAL DISCHARGE INITIATED BY ABEL ROMAN RN.
--- NOTE | 2022-09-08 16:04 | NUR ---
Spiritual care visits conducted. Multiple visits and phone calls with pt's spouse, Agustin, throughout the day. Earlier this morning agustin voiced his concerns saying that he felt like pt was near the end and that he just needed a sign to know if we should keep going with aggressive treatment. We prayed together and pt asked God for clear direction. Less than a couple of hours later pt deteriorated and I called Agustin to tell him that things had gone in a negative direction. Palliative RN Chidi Merino explained the medical aspects of this down turn on the phone. When Agustin arrived he stated that this was the sign he was looking for and that he wanted to go to comfort measures only as soon as his Niece, Maryuri arrived, (I talked to Agustin's mother, who had already called Maryuri and asked her to come and support him). Once Maryuri arrived, Agustin asked if pt could be extubated given her current situation, as he did not want to prolong the pt's suffering. I sat with Agustin and Maryuri just outside the ICU until the extubation was complete and we were called back to pt's . I then said a prayer and pt minutes after the prayer and NYA was called at 1515. I explained about the process of next steps for him, allowed Agustin some time alone with the body and then walked him out. I gave him my card for follow up bereavement. I provide therapeutic listening, grief support and prayer. Agustin responds well and shows signs of being comforted.
== END 2022-09-08 15:05 | DRG 377 ==
LOC: ER 13:11 → ICUW 22:23 → PCU 22:23 → MEDS 22:23 → ICUW 22:23 → PCU 23:10 → MEDS 09-04 12:19 → PCU 09-06 01:44 → ICUW 09-06 05:43
PROVIDERS: Family Medicine; Internal Medicine; Internal Medicine Critical Care Medicine; Internal Medicine Gastroenterology; Physician Assistant; Student in an Organized Health Care Education/Training Program; ADMIT Internal Medicine
PROC: 30233N1 Transfusion of Nonautologous Red Blood Cells into Peripheral Vein, Percutaneous Approach (ICD-10-PCS; principal; 2022-09-02)
PROC: 5A09357 Assistance with Respiratory Ventilation, Less than 24 Consecutive Hours, Continuous Positive Airway Pressure (ICD-10-PCS; 2022-09-06)
PROC: 5A0935A Assistance with Respiratory Ventilation, Less than 24 Consecutive Hours, High Flow/Velocity Cannula (ICD-10-PCS; 2022-09-07)
PROC: 3E033XZ Introduction of Vasopressor into Peripheral Vein, Percutaneous Approach (ICD-10-PCS; 2022-09-08)
PROC: 0BH17EZ Insertion of Endotracheal Airway into Trachea, Via Natural or Artificial Opening (ICD-10-PCS; 2022-09-08)
PROC: 5A1935Z Respiratory Ventilation, Less than 24 Consecutive Hours (ICD-10-PCS; 2022-09-08)
PROC: 02HV33Z Insertion of Infusion Device into Superior Vena Cava, Percutaneous Approach (ICD-10-PCS; 2022-09-08)
PROC: 0B9D8ZX Drainage of Right Middle Lung Lobe, Via Natural or Artificial Opening Endoscopic, Diagnostic (ICD-10-PCS; 2022-09-08)
DX: K92.2 Gastrointestinal hemorrhage, unspecified (principal); A41.9 Sepsis, unspecified organism; G92.8 Other toxic encephalopathy; J80 Acute respiratory distress syndrome; J18.9 Pneumonia, unspecified organism; N17.0 Acute kidney failure with tubular necrosis; D62 Acute posthemorrhagic anemia; K76.6 Portal hypertension; I47.1 Supraventricular tachycardia; J95.84 Transfusion-related acute lung injury (TRALI); K86.2 Cyst of pancreas; E46 Unspecified protein-calorie malnutrition; R57.8 Other shock; Z51.5 Encounter for palliative care; Z68.22 Body mass index [BMI] 22.0-22.9, adult; D63.8 Anemia in other chronic diseases classified elsewhere; K31.89 Other diseases of stomach and duodenum; E87.6 Hypokalemia; F41.9 Anxiety disorder, unspecified; F32.A Depression, unspecified; K21.9 Gastro-esophageal reflux disease without esophagitis; G89.29 Other chronic pain; M54.9 Dorsalgia, unspecified; E03.9 Hypothyroidism, unspecified; K52.9 Noninfective gastroenteritis and colitis, unspecified; K70.30 Alcoholic cirrhosis of liver without ascites; Z98.51 Tubal ligation status; Z87.891 Personal history of nicotine dependence; Z79.899 Other long term (current) drug therapy; F10.10 Alcohol abuse, uncomplicated
CPT/HCPCS: 0202U; 0241U; 31500; 36415; 36430; 36569; 36600; 51702; 71045; 71260; 74177; 80048; 80053; 80076; 80202; 81001; 81003; 82272; 82728; 82784; 82803; 82947; 83540; 83550; 83605; 83615; 83690; 83735; 83880; 84100; 84145; 84484; 85014; 85018; 85025; 85027; 85610; 85730; 86364; 86790; 86850; 86900; 86901; 86923; 87040; 87070; 87205; 87449; 93005; 93010; 93306; 94002; 94660; 94762; 96365; 96368; 96375; 97162; 97166; 97530; 99285-25; A9270; C1751; C9113; J0171; J0282; J0456; J0692; J0696; J1170; J1430; J1940; J2060; J2248; J2250; J2270; J2354; J2704; J3370; J3475; J3480; J7030; J7050; J7060; J7070; P9016; P9047; Q9967